=== PATIENT | female | born 1940 | race Caucasian/White ===

== ENCOUNTER 2016-03-20 17:13 | Observation (INO) | payer MEDICARE, OTHER ==
[~2016-03-20] VITALS: Ht 154.9 cm; Wt 57.3 kg
[~2016-03-20 17:13] MED LIST: ALBUCI INH; ALEN70TA39 PO; ALPR.5; CALC250 PO; CARV3.125 PO; ENAL5 PO; LEVA500T PO; LOVA10TA PO; PRED50 PO; SYMB80AE INH; WALKER STANDARD; Z.0.OXYGENDME NC
[2016-03-20 17:24] VITALS: BP 120/66; PULSE 94; RESP 20; TEMP 97.7; O2SAT 93
--- NOTE | 2016-03-20 19:50 | PD ---
HPI Chief Complaint: Fall Time Seen by Provider: 19:38 Travel History International Travel<30 days: No Contact w/Intl Traveler<30days: No Traveled to known affect area: No History of Present Illness HPI The patient is a 75-year-old female that tripped and fell on a concrete parking lot today at about noon. She cannot walk, she has tremendous pain even with a walker to ambulate. She has a history of right intertrochanteric fracture that has been operated on. She remembers the whole episode and did not lose consciousness or faint. She complains of pain only in the left hip. PFSH Past Medical History Arthritis: Yes Asthma: No Blood Disorders: No Cancer: Yes (CERVICAL, COLON) Cardiovascular Problems: No Chemotherapy: Yes (with colon cancer in 1995) Congestive Heart Failure: Yes COPD: Yes Diabetes: No Diminished Hearing: No Endocrine: No Gastrointestinal Disorders: Yes (hx of COLON CANCER ) GERD: Yes Genitourinary: No Hepatitis: No Hiatal Hernia: No Immune Disorder: No Implanted Vascular Access Dvce: Yes Musculoskeletal: Yes Neurologic: No Psychiatric: No Respiratory: Yes (COPD) Radiation Therapy: Yes (with colon 1995) Sleep Apnea: No Thyroid Disease: No Ulcer: No ?: Not Menopausal: Yes Past Surgical History Abdominal Surgery: Yes (States had abd sx for a partial obstruction r/t colon cancer) AICD: No Appendectomy: No Arteriovenous Shunt: No Cardiac Surgery: No Cholecystectomy: No Ear Surgery: No Endocrine Surgery: No Eye Surgery: Yes (REGLA. CATARACT EXTRACT.) Genitourinary Surgery: No Gynecologic Surgery: Yes (COLON/CERVICAL CANCER WITH HYSTERECTOMY ) Hysterectomy: Yes Insulin Pump: No Joint Replacement: No Neurologic Surgery: No Oral Surgery: No Pacemaker: No Thoracic Surgery: Yes (LUMBAR LAMINECTOMY ) Other Surgery: Yes Social History Alcohol Use: No Tobacco Use: No (quit 2 years ago smoked cigs in early s) Substance Use: No Allergies-Medications (Allergen,Severity, Reaction): Coded Allergies: Keflex (Verified Allergy, Severe, Itching, 03/20/16) Vancomycin (Verified Allergy, Severe, 03/20/16) REACTION NOT GIVEN Cephalosporins (Verified Allergy, Intermediate, 03/20/16) Itching Vicodin (Verified Allergy, Unknown, 03/20/16) Reported Meds & Prescriptions Reported Meds & Active Scripts Active Reported Lovastatin 10 Mg Tab 10 Mg PO DAILY Alendronate (Alendronate Sodium) 70 Mg Tab 70 Mg PO Q7D Enalapril (Enalapril Maleate) 2.5 Mg Tab 2.5 Mg PO DAILY Carvedilol 3.125 Mg Tab 3.125 Mg PO BID Symbicort Inh (Budesonide/Formoterol Fumarate) 80-4.5 Mcg/Act Aero 1 Puff INH Q12HR Review of Systems Except as stated in HPI: all other systems reviewed are Neg Physical Exam Narrative GENERAL: Well-nourished, well-developed patient. SKIN: Warm and dry. HEAD: Normocephalic. EYES: No scleral icterus. No injection or drainage. NECK: Supple, trachea midline. No JVD or lymphadenopathy. CARDIOVASCULAR: Regular rate and rhythm without murmurs, gallops, or rubs. RESPIRATORY: Breath sounds equal bilaterally. No accessory muscle use. GASTROINTESTINAL: Abdomen soft, non-tender, nondistended. MUSCULOSKELETAL: No cyanosis, or edema. There is tenderness but no deformity over the left hip. Any flexion of the left hip causes pain. There is no foreshortening of the left leg. Good cap refill and pinprick is present distally of the left foot. BACK: Nontender without obvious deformity. No CVA tenderness. Data Data Last Documented VS Vital Signs Date Time Temp Pulse Resp B/P Pulse Ox O2 Delivery O2 Flow Rate FiO2 03/20/16 21:42 84 18 96/70 94 03/20/16 19:57 Nasal Cannula 2 03/20/16 17:24 97.7 Orders Hip, Uni(Ap&Lat) W Ap Pelvis (03/20/16 19:01) Ct Hip W/O Contrast (03/20/16 ) MDM Medical Decision Making Medical Screen Exam Complete: Yes Emergency Medical Condition: Yes Medical Record Reviewed: Yes Interpretation(s) X-rays of the CT of the hip and plain films of the hip show a mildly displaced fracture of the left pubic bone extending into the left inferior and superior pubic rami. Differential Diagnosis Fractured hip, contusion hip, fractured pelvis Narrative Course The patient has a fractured pelvis. She cannot walk and will be admitted to [facility]. Dr. Bertrand asked that the patient be transferred to [facility] so that he could get an orthopedic consult. Procedures EKG Prior to Arrival: No Diagnosis Primary Impression: Fracture, pelvis closed Admitting Information Admitting Physician Requests: Admit Disposition: 01 DISCHARGE HOME Condition: Stable Sergio Álvarez MD Mar 20, 2016 19:50
[2016-03-20] MEDS ORDERED: ALEN1TAB48 PO (19:56)
[2016-03-20] MEDS ORDERED: CARV3.12 PO (19:56)
[2016-03-20] MEDS ORDERED: ENAL2.5T PO (19:56)
[2016-03-20] MEDS ORDERED: SYMB80AE INH (19:56)
[2016-03-20] MEDS ORDERED: LOVA10TA PO (19:56)
[2016-03-20 19:57] VITALS: BP 107/64; PULSE 77; RESP 18; O2SAT 95
--- NOTE | 2016-03-20 20:56 | RADHPO ---
EXAM DATE/TIME: 03/20/2016 20:06 [facility] COMPARISON: No previous studies available for comparison. INDICATIONS : Mechanical fall. Left posterior hip trauma. RADIATION DOSE: 14.96 CTDIvol (mGy) MEDICAL HISTORY : Carcinoma, colon. SURGICAL HISTORY : Hysterectomy. Right hip replacement. ENCOUNTER: Initial ACUITY: 1 day PAIN SCALE: 8/10 LOCATION: Left hip. TECHNIQUE: Volumetric scanning of the hip was performed. Using automated exposure control and adjustment of the mA and/or kV according to patient size, radiation dose was kept as low as reasonably achievable to o btain optimal diagnostic quality images. FINDINGS: Mildly displaced fracture of the left pubic bone extending into the left superior and inferior pubic rami. Left proximal femur are intact. Previous fixation right hip. CONCLUSION: 1. Mildly displaced fracture left pubic bone and extending into proximal superior inferior rami. Left proximal femur intact. Questionable small corner fracture through the anterior aspect of the left sacral ala. Nate Sparrow MD on March 20, 2016 at 20:50 Board Certified Radiologist. This report was verified electronically.
--- NOTE | 2016-03-20 21:16 | RADHPO ---
EXAM DATE/TIME: 03/20/2016 19:06 [facility] COMPARISON: No previous studies available for comparison. INDICATIONS : Left hip pain post fall. MEDICAL HISTORY : None. SURGICAL HISTORY : Right hip surgery ENCOUNTER: Initial ACUITY: 1 day PAIN SCORE: 10/10 LOCATION: Left pelvis FINDINGS: There is a mildly displaced fracture of the left pubic bone extending into the left inferior and supe rior pubic rami. Left proximal femur appears intact. No other fractures are seen radiographically. Pr evious right hip screw fixation. CONCLUSION: 1. Mildly displaced fracture left pubic bone extending into the superior and inferior pubic rami. Nate Sparrow MD on March 20, 2016 at 21:13 Board Certified Radiologist. This report was verified electronically.
[2016-03-20 21:42] VITALS: BP 96/70; PULSE 84; RESP 18; O2SAT 94
[2016-03-20] MEDS ORDERED: NALOXONE HCL 0.4 MG/ML AMP IV PRN (22:00)
[2016-03-20] MEDS ORDERED: ONDANSETRON HCL 4 MG/2 ML VIAL IVP PRN (22:00)
[2016-03-20] MEDS ORDERED: SODIUM CHLORIDE 0.9% FLUSH 5 ML FLUSH FLUSH PRN (22:00)
[2016-03-20 22:34] LABS: BLOOD, URINE NEG (NEG); GLUCOSE,URINE NEG (NEG); KETONE, URINE NEG (NEG); NITRITE,URINE NEG (NEG)
[2016-03-20 22:40] LABS: AUTOMATED NEUTROPHIL # 8.6 TH/MM3 (1.8-7.7); BASOPHIL # 0.1 TH/MM3 (0-0.2); BASOPHIL % 0.5 % (0.0-2.0); EOSINOPHIL % 0.1 % (0.0-4.0); HEMATOCRIT 43.9 % (35.0-46.0); HEMO FLAGS DIFF FINAL; LYMPH % 10.3 % (9.0-44.0); LYMPHOCYTE # 1.1 TH/MM3 (1.0-4.8); MEAN CELL VOLUME 91.1 FL (80.0-100.0); MEAN CORPUSCULAR HGB CONC 32.9 % (32.0-36.0); MONO % 10.5 % (0.0-8.0); NEUT % 78.6 % (16.0-70.0); PLATELET COUNT 206 TH/MM3 (150-450); RED BLOOD COUNT 4.81 MIL/MM3 (4.00-5.30)
[2016-03-20 22:42] LABS: CHLORIDE 103 MEQ/L (98-107); POTASSIUM 4.2 MEQ/L (3.5-5.1); SODIUM (NA) 142 MEQ/L (136-145)
[2016-03-20 22:43] VITALS: BP 98/70; PULSE 94; RESP 18; O2SAT 94
[2016-03-20] MEDS ORDERED: HYDROmorphone HCL PF 1 MG/ML VIAL IV PRN (22:45)
[2016-03-20 22:47] LABS: ANION GAP 9 MEQ/L (5-15); BICARBONATE 30.4 MEQ/L (21.0-32.0); BLOOD UREA NITROGEN 11 MG/DL (7-18)
[2016-03-20] MEDS: SODIUM CHLOR 0.9% 1000 ML INJ 1,000 ML IV SCH (22:47)
[2016-03-20 22:50] LABS: ALT (GPT) 25 U/L (10-53); AST (GOT) 19 U/L (15-37)
[2016-03-20 22:51] LABS: GLOMERULAR FILTRATION RATE 99 ML/MIN (>89)
[2016-03-20 22:52] LABS: TOTAL BILIRUBIN ADULT 0.4 MG/DL (0.2-1.0)
[2016-03-20 22:52] LABS: METHOD OF COLLECTION VOIDED; URINE COLOR YELLOW (YELLW/STRAW)
[2016-03-20 22:53] LABS: ALKALINE PHOSPHATASE 77 U/L (45-117)
[2016-03-20 22:53] LABS: COMMENT (UR) CULT NOT INDICATED; CULTURE IF INDICATED CULT NOT INDICATED; SQUAMOUS EPITHELIAL CELL URINE 0-2 /hpf (0-5); TRANSITIONAL EPI CELLS, URINE 0-2 /hpf; WBC, URINE 0-2 /hpf (0-5)
[2016-03-21] VITALS (12 sets, daily range): BP systolic 88–116; BP diastolic 42–80; PULSE 71–98; RESP 16–22; TEMP 96.3–98.6; O2SAT 92–97
[2016-03-21] MEDS: RESP: ALBUTEROL 2.5 MG/IPRATROPIUM 0.5 MG NEB (PRN) NEB ×3 (06:29→21:26)
[2016-03-21] MEDS: SODIUM CHLOR 0.9% 1000 ML INJ 1,000 ML IV SCH (07:47)
[2016-03-21] MEDS: SODIUM CHLORIDE 0.9% FLUSH 5 ML FLUSH FLUSH SCH ×2 (08:20→21:04)
--- NOTE | 2016-03-21 08:23 | HHI.HP ---
HPI [facility] Primary Care Physician Russ Belle M.D. Admission Diagnosis fracture pelvisclosed Diagnoses: Chief Complaint: Fall and left hip pain (Sofia Lyons) Travel History International Travel<30 Days: No Contact w/Intl Traveler <30 Da: No Traveled to Known Affected Are: No (Sofia Lyons) History of Present Illness This is a pleasant 75-year-old white female with past medical history of COPD, previous fall with right intertrochanteric hip fracture, colon cancer, hypertension, hyperlipidemia. Patient presented to the emergency room after she had a fall. Patient indicates that she was monitoring her 's ambulation as he recently started using a cane when she tripped and fell on concrete landing on her left side. She complained of pain to the left hip. She did not hit her head, no loss of consciousness. No neck pain. No preceding symptoms such as dizziness, chest pain, shortness of breath, lightheadedness. In the emergency room, patient was evaluated, laboratory workup was unremarkable. Imaging studies were completed showing mild displacement fracture of left pubic bone extended into the left inferior and superior pubic rami. Patient has not ambulated this morning. At this time she' s sitting up in bed waiting for breakfast. Pain is well-controlled. No chest pain, no shortness of breath, no recent fevers, no chills. Indicates COPD is well-controlled, has oxygen tank at home but only uses as needed. Had been doing relatively well at home. Patient is admitted for further evaluation and treatment (Sofia Lyons) Review of Systems Constitutional: DENIES: Diaphoretic episodes, Fatigue, Fever, Weight gain, Weight loss, Chills, Dizziness, Change in appetite, Night Sweats Endocrine: DENIES: Abnorml menstrual pattern, Heat/cold intolerance, Polydipsia , Polyuria, Polyphagia Eyes: DENIES: Blurred vision, Diplopia, Eye inflammation, Eye pain, Vision loss , Photosensitivity, Double Vision Ears, nose, mouth, throat: DENIES: Tinnitus, Hearing loss, Vertigo, Nasal discharge, Oral lesions, Throat pain, Hoarseness, Ear Pain, Running Nose, Epistaxis, Sinus Pain, Toothache, Odynophagia Respiratory: COMPLAINS OF: Wheezing, Shortness of breath, DENIES: Apneas, Cough, Snoring, Hemoptysis, Sputum production Cardiovascular: DENIES: Chest pain, Palpitations, Syncope, Dyspnea on Exertion , PND, Lower Extremity Edema, Orthopnea, Claudication Gastrointestinal: DENIES: Abdominal pain, Black stools, Bloody stools, Constipation, Diarrhea, Nausea, Vomiting, Difficulty Swallowing, Anorexia Genitourinary: DENIES: Abnormal vaginal bleeding, Dysmenorrhea, Dyspareunia, Sexual dysfunction, Urinary frequency, Urinary incontinence, Urgency, Hematuria , Dysuria, Nocturia, Vaginal discharge Musculoskeletal: COMPLAINS OF: Joint pain Integumentary: DENIES: Abnormal pigmentation, Pruritus, Rash, Nail changes, Breast masses, Breast skin changes, Nipple discharge Hematologic/lymphatic: DENIES: Bruising, Lymphadenopathy Immunologic/allergic: DENIES: Eczema, Urticaria Neurologic: DENIES: Abnormal gait, Headache, Localized weakness, Paresthesias, Seizures, Speech Problems, Tremor, Poor Balance Psychiatric: DENIES: Anxiety, Confusion, Mood changes, Depression, Hallucinations, Agitation, Suicidal Ideation, Homicidal Ideation, Delusions ( Sofia Lyons) Past Family Social History Past Medical History Osteoporosis COPD on home oxygen as needed Colon cancer status post colostomy and reversal Hypertension Osteoarthritis Past Surgical History Bilateral knee arthroscopies Back laminectomy Cervical cancer Hysterectomy Intramedullary nail fixation right hip intertrochanteric fracture (May 13, 2015) Reported Medications Reported Meds & Active Scripts Active Reported Lovastatin 10 Mg Tab 10 Mg PO DAILY Alendronate (Alendronate Sodium) 70 Mg Tab 70 Mg PO Q7D Enalapril (Enalapril Maleate) 2.5 Mg Tab 2.5 Mg PO DAILY Carvedilol 3.125 Mg Tab 3.125 Mg PO BID Symbicort Inh (Budesonide/Formoterol Fumarate) 80-4.5 Mcg/Act Aero 1 Puff INH Q12HR (Sofia Lyons) Allergies: Coded Allergies: Keflex (Verified Allergy, Severe, Itching, 03/20/16) Vancomycin (Verified Allergy, Severe, 03/20/16) REACTION NOT GIVEN Cephalosporins (Verified Allergy, Intermediate, 03/20/16) Itching Vicodin (Verified Allergy, Unknown, 03/20/16) Active Ordered Medications Inpatient Medications Albuterol/ Ipratropium (Duoneb Neb) 1 ampule Q4HR NEB PRN NEB WHEEZING Last administered on 03/21/16 06:29; Start 03/20/16 at 22:15 Hydromorphone HCl (Dilaudid Pf Inj) 0.5 mg Q4H PRN IV PAIN SCALE 6 TO 10; Start 03/20/16 at 22:45 IV Flush (NS Flush) 2 ml BID FLUSH ; Start 03/21/16 at 09:00 Naloxone HCl (Narcan Inj) 0.4 mg UNSCH PRN IV SEE LABEL COMMENTS; Start at 22:00 Ondansetron HCl (Zofran Inj) 4 mg Q6H PRN IVP NAUSEA OR VOMITING; Start at 22:00 Sodium Chloride (NS 1000 ml Inj) 1,000 ml @ 100 mls/hr Q10H IV Last administered on 03/20/16 22:47; Start 03/20/16 at 21:47 Family History Positive for coronary artery disease and various cancers Social History Used to smoke heavily, may smoke 1 cigarette once in a while Alcohol abuse No illegal drug use Lives at home with , has 2 grandsons who live with her (Sofia Lyons) Physical Exam Vital Signs Vital Signs Date Time Temp Pulse Resp B/P Pulse Ox O2 Delivery O2 Flow Rate FiO2 03/21/16 08:00 96.9 71 19 96/80 95 03/21/16 04:00 96.3 92 18 108/55 96 03/21/16 01:13 98.5 89 22 113/69 93 03/21/16 00:56 93 Nasal Cannula 3.00 03/21/16 00:30 98 18 95 2 03/21/16 00:20 98 18 99/68 94 03/20/16 22:43 94 18 98/70 94 03/20/16 21:42 84 18 96/70 94 03/20/16 19:57 77 18 107/64 95 Nasal Cannula 2 03/20/16 19:57 77 18 95 Nasal Cannula 2 03/20/16 17:24 97.7 94 20 120/66 93 Physical Exam GENERAL: This is a well-nourished, well-developed patient, in no apparent distress. SKIN: No rashes, ecchymoses or lesions. Cool and dry. HEAD: Atraumatic. Normocephalic. No temporal or scalp tenderness. EYES: Pupils equal round and reactive. Extraocular motions intact. No scleral icterus. No injection or drainage. ENT: Nose without bleeding, purulent drainage or septal hematoma. Throat without erythema, tonsillar hypertrophy or exudate. Uvula midline. Airway patent. NECK: Trachea midline. No JVD or lymphadenopathy. Supple, nontender, no meningeal signs. CARDIOVASCULAR: Regular rate and rhythm without murmurs, gallops, or rubs. RESPIRATORY: Diminished, otherwise clear. GASTROINTESTINAL: Abdomen soft, non-tender, nondistended. No hepato-splenomegaly , or palpable masses. No guarding. MUSCULOSKELETAL: Sitting up, minimal tenderness over left hip. No other joint abnormalities. Bilateral lower extremities without any clubbing, no cyanosis, no edema. Pedal pulses 2+ by NEUROLOGICAL: Awake and alert. Cranial nerves II through XII intact. Motor and sensory grossly within normal limits. Five out of 5 muscle strength in all muscle groups. Normal speech. Laboratory Laboratory Tests Test 03/20/16 03/20/16 22:10 22:25 Urine Collection Type VOIDED Urine Color YELLOW Urine Turbidity CLEAR Urine pH 6.0 Urine Specific Pyatt 1.012 Urine Protein NEG Urine Glucose (UA) NEG Urine Ketones NEG Urine Occult Blood NEG Urine Nitrite NEG Urine Bilirubin NEG Urine Leukocyte Esterase NEG Urine WBC 0-2 Urine Squamous Epithelial 0-2 Cells Urine Transitional Epithelial 0-2 Cells Microscopic Urinalysis Comment CULT NOT INDICATED White Blood Count 11.0 Red Blood Count 4.81 Hemoglobin 14.4 Hematocrit 43.9 Mean Corpuscular Volume 91.1 Mean Corpuscular Hemoglobin 30.0 Mean Corpuscular Hemoglobin 32.9 Concent Red Cell Distribution Width 14.0 Platelet Count 206 Mean Platelet Volume 8.3 Neutrophils (%) (Auto) 78.6 Lymphocytes (%) (Auto) 10.3 Monocytes (%) (Auto) 10.5 Eosinophils (%) (Auto) 0.1 Basophils (%) (Auto) 0.5 Neutrophils # (Auto) 8.6 Lymphocytes # (Auto) 1.1 Monocytes # (Auto) 1.2 Eosinophils # (Auto) 0.0 Basophils # (Auto) 0.1 CBC Comment DIFF FINAL Differential Comment Sodium Level 142 Potassium Level 4.2 Chloride Level 103 Carbon Dioxide Level 30.4 Anion Gap 9 Blood Urea Nitrogen 11 Creatinine 0.59 Estimat Glomerular Filtration 99 Rate Random Glucose 112 Calcium Level 9.0 Total Bilirubin 0.4 Aspartate Amino Transf 19 (AST/SGOT) Alanine Aminotransferase 25 (ALT/SGPT) Alkaline Phosphatase 77 Total Protein 6.8 Albumin 3.6 (Sofia Lyons) Result Diagram: 03/20/16222403/20/162224 Imaging Last Impressions Hip and Pelvis X-Ray 03/20/16 1901 Signed Impressions: Service Date/Time: Sunday, March 20, 2016 19:06 - CONCLUSION: 1. Mildly displaced fracture left pubic bone extending into the superior and inferior pubic rami. Nate Sparrow MD Lower Extremity CT 03/20/16 0000 Signed Impressions: Service Date/Time: Sunday, March 20, 2016 20:06 - CONCLUSION: 1. Mildly displaced fracture left pubic bone and extending into proximal superior inferior rami. Left proximal femur intact. Questionable small corner fracture through the anterior aspect of the left sacral ala. Nate Sparrow MD (Sofia Lyons) Assessment and Plan Problem List: (1) Fracture, pelvis closed (2) COPD (chronic obstructive pulmonary disease) (3) Fall Assessment and Plan Admit to Dr. Aguiar 75-year-old female presented to the emergency room after she tripped and fell on concrete parking lot, imaging studies completed showed mildly displaced fracture of the left pubic bone extending into the left inferior and superior pubic rami -Ortho consultation -PT for evaluation and treatment, OOB today -Pain management -Antiemetics PRN -Case management for discharge planning, pt. prefers to go home with C and PT. Has adult grandsons who will be assisting COPD, stable -DuoNeb's when necessary -Oxygen at 2 L as needed Home medications reviewed, initiated as indicated Heparin for DVT prophylaxis Plan of care has been discussed with the patient, attending and registered nurse. Further management of the patient will be dependent on the hospital course This patient was seen by myself and Dr. Aguiar, this H&P is written on his behalf (Sofia Lyons) Assessment and Plan pt seen and examined as above face to face time spent with pt chart reviewed labs reviewed meds reviewed plan of care dw research dietitian dw pt (Trini Aguiar MD) Problem Qualifiers (1) Fracture, pelvis closed: Qualified Code: S32.512A - Closed fracture of superior ramus of left pubis, initial encounter (2) COPD (chronic obstructive pulmonary disease): Qualified Code: J44.9 - Chronic obstructive pulmonary disease, unspecified COPD type (3) Fall: Qualified Code: W19.XXXA - Fall, initial encounter Sofia Lyons Mar 21, 2016 08:23 Trini Aguiar MD Mar 21, 2016 17:37
[2016-03-21] MEDS: CARVEDILOL 3.125 MG TAB PO SCH ×2 (09:00→21:00)
[2016-03-21] MEDS: ENALAPRIL MALEATE 2.5 MG TAB PO SCH (09:00)
[2016-03-21] MEDS: PRAVASTATIN SOD 10 MG TAB PO SCH (09:36)
[2016-03-21] MEDS: BUDESONIDE-FORMOTEROL 80/4.5 MCG INHALER INH SCH ×2 (11:08→21:05)
[2016-03-21] MEDS: HEPARIN SODIUM - SQ 10,000 UNITS/ML VIAL SQ SCH ×2 (11:08→21:05)
--- NOTE | 2016-03-21 13:06 | EKG ---
Date Performed: 03/20/2016 Time Performed: 22:15:50 PTAGE: 75 years EKG: Sinus rhythm with PAC(s) Indeterminate axis Possible septal infarct - age undetermined Inferior/lateral ST-T shin ges are nonspecific Abnormal ECG PREVIOUS TRACING : 06/08/2015 17.19 Compared to previous tracing, nonspecific ST changes are ne w, consider ischemia. DOCTOR: Al Head Interpretating Date/Time 03/21/2016 13:03:38
[2016-03-21 13:26] LABS: AUTOMATED NEUTROPHIL # 5.7 TH/MM3 (1.8-7.7); BASOPHIL % 0.5 % (0.0-2.0); EOSINOPHIL # 0.1 TH/MM3 (0-0.4); EOSINOPHIL % 1.4 % (0.0-4.0); HEMATOCRIT 39.9 % (35.0-46.0); HEMO FLAGS DIFF FINAL; LYMPH % 12.5 % (9.0-44.0); MEAN CELL VOLUME 93.1 FL (80.0-100.0); MEAN CORPUSCULAR HEMOGLOBIN 30.4 PG (27.0-34.0); MEAN CORPUSCULAR HGB CONC 32.6 % (32.0-36.0); MONO % 14.6 % (0.0-8.0); PLATELET COUNT 187 TH/MM3 (150-450); RED BLOOD COUNT 4.28 MIL/MM3 (4.00-5.30); RED CELL DISTRIBUTION WIDTH 15.3 % (11.6-17.2)
--- NOTE | 2016-03-21 13:29 | PD.CONS ---
cc: Morris Carter MD [facility] Service Orthopedic Surgeons Consult Requested By Dr. Aguiar Reason for Consult pelvic fracture Primary Care Physician Russ Belle M.D. Admission Diagnosis fracture pelvisclosed Diagnoses: (1) COPD (chronic obstructive pulmonary disease) (2) CHF (congestive heart failure) (3) Pubic ramus fracture Chief Complaint: Left hip pain status post fall History of Present Illness History of Present Illness This is a pleasant 75-year-old white female with past medical history of COPD, previous fall with right intertrochanteric hip fracture, colon cancer, hypertension, hyperlipidemia. Patient presented to the emergency room after she had a fall. Patient indicates that she was monitoring her 's ambulation as he recently started using a cane when she tripped and fell on concrete landing on her left side. She complained of pain to the left hip. She did not hit her head, no loss of consciousness. No neck pain. No preceding symptoms such as dizziness, chest pain, shortness of breath, lightheadedness. In the emergency room, patient was evaluated, laboratory workup was unremarkable. Imaging studies were completed showing mild displacement fracture of left pubic bone extended into the left inferior and superior pubic rami. Patient has not ambulated this morning. At this time she' s sitting up in bed waiting for breakfast. Pain is well-controlled. No chest pain, no shortness of breath, no recent fevers, no chills. Indicates COPD is well-controlled, has oxygen tank at home but only uses as needed. Had been doing relatively well at home. Patient is admitted for further evaluation and treatment. She has had a previous intertrochanteric fracture of the right hip treated surgically. She has mild left shoulder pain also related to the recent fall. Review of Systems Reviewed and well outlined in the medical record Past Family Social History Past Medical History Past Family Social History Past Medical History Osteoporosis COPD on home oxygen as needed Colon cancer status post colostomy and reversal Hypertension Osteoarthritis Past Surgical History Bilateral knee arthroscopies Back laminectomy Cervical cancer Hysterectomy Intramedullary nail fixation right hip intertrochanteric fracture (May 13, 2015) Reported Medications Reported Meds & Active Scripts Active Reported Lovastatin 10 Mg Tab 10 Mg PO DAILY Alendronate (Alendronate Sodium) 70 Mg Tab 70 Mg PO Q7D Enalapril (Enalapril Maleate) 2.5 Mg Tab 2.5 Mg PO DAILY Carvedilol 3.125 Mg Tab 3.125 Mg PO BID Symbicort Inh (Budesonide/Formoterol Fumarate) 80-4.5 Mcg/Act Aero 1 Puff INH Q12HR Allergies: Coded Allergies: Keflex (Verified Allergy, Severe, Itching, 03/20/16) Vancomycin (Verified Allergy, Severe, 03/20/16) REACTION NOT GIVEN Cephalosporins (Verified Allergy, Intermediate, 03/20/16) Itching Vicodin (Verified Allergy, Unknown, 03/20/16) Active Ordered Medications Inpatient Medications Albuterol/ Ipratropium (Duoneb Neb) 1 ampule Q4HR NEB PRN NEB WHEEZING Last administered on 03/21/16t 06:29; Start 03/20/16 at 22:15 Hydromorphone HCl (Dilaudid Pf Inj) 0.5 mg Q4H PRN IV PAIN SCALE 6 TO 10; Start 03/20/16 at 22:45 IV Flush (NS Flush) 2 ml BID FLUSH ; Start 03/21/16 at 09:00 Naloxone HCl (Narcan Inj) 0.4 mg UNSCH PRN IV SEE LABEL COMMENTS; Start at 22:00 Ondansetron HCl (Zofran Inj) 4 mg Q6H PRN IVP NAUSEA Allergies: Coded Allergies: Keflex (Verified Allergy, Severe, Itching, 03/20/16) Vancomycin (Verified Allergy, Severe, 03/20/16) REACTION NOT GIVEN Cephalosporins (Verified Allergy, Intermediate, 03/20/16) Itching Vicodin (Verified Allergy, Unknown, 03/20/16) Active Ordered Medications Current Medications Medications (Trade) Dose Ordered Sig/Mary Route Start Time Stop Time Status Last Admin (NS Flush) 2 ml UNSCH PRN FLUSH 03/20/16 22:00 (NS Flush) 2 ml BID FLUSH 03/21/16 09:00 (Zofran Inj) 4 mg Q6H PRN IVP 03/20/16 22:00 (Narcan Inj) 0.4 mg UNSCH PRN IV 03/20/16 22:00 (Dilaudid Pf Inj) 0.5 mg Q4H PRN IV 03/20/16 22:45 (Symbicort 80-4.5 Mcg Inh) 1 puff Q12HR INH 03/21/16 09:00 03/21/16 11:08 (Coreg) 3.125 mg BID PO 03/21/16 09:00 (Vasotec) 2.5 mg DAILY PO 03/21/16 09:00 (Pravachol) 10 mg DAILY PO 03/21/16 09:00 03/21/16 09:36 (Heparin Inj) 5,000 units Q12HR SQ 03/21/16 10:00 03/21/16 11:08 Reported Meds & Active Scripts Active Reported Lovastatin 10 Mg Tab 10 Mg PO DAILY Alendronate (Alendronate Sodium) 70 Mg Tab 70 Mg PO Q7D Enalapril (Enalapril Maleate) 2.5 Mg Tab 2.5 Mg PO DAILY Carvedilol 3.125 Mg Tab 3.125 Mg PO BID Symbicort Inh (Budesonide/Formoterol Fumarate) 80-4.5 Mcg/Act Aero 1 Puff INH Q12HR Family History Positive for coronary artery disease and various cancers Social History Used to smoke heavily, may smoke 1 cigarette once in a while Alcohol abuse No illegal drug use Lives at home with , has 2 grandsons who live with her Physical Exam Vital Signs Vital Signs Date Time Temp Pulse Resp B/P Pulse Ox O2 Delivery O2 Flow Rate FiO2 03/21/16 12:57 116/58 03/21/16 11:59 97.2 85 18 88/42 97 03/21/16 10:02 95 Nasal Cannula 2.50 03/21/16 08:00 96.9 71 19 96/80 95 03/21/16 04:00 96.3 92 18 108/55 96 03/21/16 01:13 98.5 89 22 113/69 93 03/21/16 00:56 93 Nasal Cannula 3.00 03/21/16 00:30 98 18 95 2 03/21/16 00:20 98 18 99/68 94 03/20/16 22:43 94 18 98/70 94 03/20/16 21:42 84 18 96/70 94 03/20/16 19:57 77 18 107/64 95 Nasal Cannula 2 03/20/16 19:57 77 18 95 Nasal Cannula 2 03/20/16 17:24 97.7 94 20 120/66 93 Physical Exam The patient is sitting at the bedside eating lunch. She denies pain when sitting. She was able to stand. With bearing weight she did have some discomfort in the left groin region. She has minimal discomfort with active and passive range of motion of the left hip. She has mild restriction of left shoulder motion at extremes. She has full mobility of the rest of the left upper extremity as well as the right upper extremity and right lower extremity. Neurologically no focal deficit. Laboratory Laboratory Tests Test 03/20/16 03/20/16 22:10 22:25 Urine Collection Type VOIDED Urine Color YELLOW Urine Turbidity CLEAR Urine pH 6.0 Urine Specific [place] 1.012 Urine Protein NEG Urine Glucose (UA) NEG Urine Ketones NEG Urine Occult Blood NEG Urine Nitrite NEG Urine Bilirubin NEG Urine Leukocyte Esterase NEG Urine WBC 0-2 Urine Squamous Epithelial 0-2 Cells Urine Transitional Epithelial 0-2 Cells Microscopic Urinalysis Comment CULT NOT INDICATED White Blood Count 11.0 Red Blood Count 4.81 Hemoglobin 14.4 Hematocrit 43.9 Mean Corpuscular Volume 91.1 Mean Corpuscular Hemoglobin 30.0 Mean Corpuscular Hemoglobin 32.9 Concent Red Cell Distribution Width 14.0 Platelet Count 206 Mean Platelet Volume 8.3 Neutrophils (%) (Auto) 78.6 Lymphocytes (%) (Auto) 10.3 Monocytes (%) (Auto) 10.5 Eosinophils (%) (Auto) 0.1 Basophils (%) (Auto) 0.5 Neutrophils # (Auto) 8.6 Lymphocytes # (Auto) 1.1 Monocytes # (Auto) 1.2 Eosinophils # (Auto) 0.0 Basophils # (Auto) 0.1 CBC Comment DIFF FINAL Differential Comment Sodium Level 142 Potassium Level 4.2 Chloride Level 103 Carbon Dioxide Level 30.4 Anion Gap 9 Blood Urea Nitrogen 11 Creatinine 0.59 Estimat Glomerular Filtration 99 Rate Random Glucose 112 Calcium Level 9.0 Total Bilirubin 0.4 Aspartate Amino Transf 19 (AST/SGOT) Alanine Aminotransferase 25 (ALT/SGPT) Alkaline Phosphatase 77 Total Protein 6.8 Albumin 3.6 Result Diagram: 03/20/16222403/20/162224 Imaging Last 48 hours Impressions Hip and Pelvis X-Ray 03/20/16 190 Signed Impressions: Service Date/Time: Sunday, March 20, 2016 19:06 - CONCLUSION: 1. Mildly displaced fracture left pubic bone extending into the superior and inferior pubic rami. Nate Sparrow MD Lower Extremity CT 03/20/16 0000 Signed Impressions: Service Date/Time: Sunday, March 20, 2016 20:06 - CONCLUSION: 1. Mildly displaced fracture left pubic bone and extending into proximal superior inferior rami. Left proximal femur intact. Questionable small corner fracture through the anterior aspect of the left sacral ala. Nate Sparrow MD Assessment & Plan Problem List: (1) Pubic ramus fracture (2) CHF (congestive heart failure) (3) COPD (chronic obstructive pulmonary disease) Assessment and Plan The findings were discussed. Recommendations are given for progressive mobilization to tolerance. This would include physical therapy to assist. The possibility of a soft tissue injury to the shoulder requiring further management if her symptoms persist was discussed. The patient can be discharged from an orthopedic standpoint with follow-up evaluation in approximately 3 weeks. The patient acknowledges full understanding of the nature of the problem and the plan of treatment and agrees to it. Morris Carter MD Mar 21, 2016 13:29
[2016-03-21 13:49] LABS: BICARBONATE 29.9 MEQ/L (21.0-32.0); POTASSIUM 4.1 MEQ/L (3.5-5.1)
[2016-03-21] MEDS ORDERED: ALPRAZolam 0.5 MG TAB PO PRN (20:15)
[2016-03-22] VITALS: BP 101/46; PULSE 87; RESP 15; TEMP 98; O2SAT 92
[2016-03-22 04:00] VITALS: BP 93/42; PULSE 76; RESP 16; TEMP 98.1; O2SAT 94
[2016-03-22] MEDS: RESP: ALBUTEROL 2.5 MG/IPRATROPIUM 0.5 MG NEB (PRN) NEB ×2 (04:23→09:53)
[2016-03-22 07:25] VITALS: BP 101/49; PULSE 86; RESP 17; TEMP 97; O2SAT 93
--- NOTE | 2016-03-22 07:48 | HHI.DCPOC ---
Discharge Care Plan Diagnosis: (1) Pubic ramus fracture (2) Fall Your Health Problems Are: Difficulty with ADL Goals to Promote Your Health * To prevent worsening of your condition and complications * To maintain your health at the optimal level Directions to Meet Your Goals Take your medications as prescribed Follow your dietary instruction Follow activity as directed Keep your appointments as scheduled Take your immunizations and boosters as scheduled If your symptoms worsen call your PCP, if no PCP go to Urgent Care Center or Emergency Room Smoking is Dangerous to Your Health. Avoid second hand smoke Call the 24-hour hour crisis hotline for domestic abuse at Sofia Lyons Mar 22, 2016 07:47
[2016-03-22] MEDS: ENALAPRIL MALEATE 2.5 MG TAB PO SCH (08:30)
[2016-03-22] MEDS: CARVEDILOL 3.125 MG TAB PO SCH (08:30)
[2016-03-22] MEDS: BUDESONIDE-FORMOTEROL 80/4.5 MCG INHALER INH SCH (08:34)
[2016-03-22] MEDS: SODIUM CHLORIDE 0.9% FLUSH 5 ML FLUSH FLUSH SCH (08:34)
[2016-03-22] MEDS: HEPARIN SODIUM - SQ 10,000 UNITS/ML VIAL SQ SCH (08:34)
[2016-03-22] MEDS: PRAVASTATIN SOD 10 MG TAB PO SCH (08:34)
[2016-03-22] MEDS ORDERED: HYDR-3288 PO (08:34)
[2016-03-22 09:53] VITALS: O2SAT 97
[2016-03-22 11:35] VITALS: BP 108/53; PULSE 96; RESP 17; TEMP 96.8; O2SAT 93
--- NOTE | 2016-03-22 11:49 | HHI.PR ---
Subjective Remarks BP 90s yesterday, given bolus remains low 100s asymptomatic no cp no sob BP meds held states BP usually runs low at home pain very minimal ambulated with PT anxious to go home Objective Objective Results - Vital Signs Date Time Temp Pulse Resp B/P Pulse Ox O2 Delivery O2 Flow Rate FiO2 03/22/16 09:53 97 Nasal Cannula 2.00 03/22/16 07:25 97.0 86 17 101/49 93 03/22/16 04:00 98.1 76 16 93/42 94 03/22/16 00:00 98.0 87 15 101/46 92 03/21/16 21:27 95 Nasal Cannula 2.00 03/21/16 21:00 84 03/21/16 20:00 98.6 94 16 91/53 92 03/21/16 16:00 97.4 86 18 103/50 94 03/21/16 12:57 116/58 03/21/16 11:59 97.2 85 18 88/42 97 I/O 03/21/16 03/21/16 03/21/16 03/22/16 03/22/16 03/22/16 07:00 15:00 23:00 07:00 15:00 23:00 Intake Total 240 ml 1220 ml 480 ml 360 ml Output Total 2 ml Balance 238 ml 1220 ml 480 ml 360 ml Intake Oral 240 ml 1220 ml 480 ml 360 ml Output Urine Total 2 ml # Voids 3 4 1 # Bowel Movements 0 2 1 Result Diagram: 03/21/16 1311 03/21/16 1311 Imaging Last Impressions Hip and Pelvis X-Ray 03/20/16 1901 Signed Impressions: Service Date/Time: Sunday, March 20, 2016 19:06 - CONCLUSION: 1. Mildly displaced fracture left pubic bone extending into the superior and inferior pubic rami. Nate Sparrow MD Lower Extremity CT 03/20/16 0000 Signed Impressions: Service Date/Time: Sunday, March 20, 2016 20:06 - CONCLUSION: 1. Mildly displaced fracture left pubic bone and extending into proximal superior inferior rami. Left proximal femur intact. Questionable small corner fracture through the anterior aspect of the left sacral ala. Nate Sparrow MD Other Results Laboratory Tests Test 03/21/16 13:11 White Blood Count 8.0 Red Blood Count 4.28 Hemoglobin 13.0 Hematocrit 39.9 Mean Corpuscular Volume 93.1 Mean Corpuscular Hemoglobin 30.4 Mean Corpuscular Hemoglobin 32.6 Concent Red Cell Distribution Width 15.3 Platelet Count 187 Mean Platelet Volume 8.8 Neutrophils (%) (Auto) 71.0 Lymphocytes (%) (Auto) 12.5 Monocytes (%) (Auto) 14.6 Eosinophils (%) (Auto) 1.4 Basophils (%) (Auto) 0.5 Neutrophils # (Auto) 5.7 Lymphocytes # (Auto) 1.0 Monocytes # (Auto) 1.2 Eosinophils # (Auto) 0.1 Basophils # (Auto) 0.0 CBC Comment DIFF FINAL Differential Comment Sodium Level 142 Potassium Level 4.1 Chloride Level 105 Carbon Dioxide Level 29.9 Anion Gap 7 Blood Urea Nitrogen 13 Creatinine 0.60 Estimat Glomerular Filtration 97 Rate Random Glucose 104 Calcium Level 8.1 ROS General: No: Fatigue, Weakness HEENT: No: Sore Throat, Dysphagia Cardiac: No: Chest Pain, Edema, Palpitations Pulmonary: No: Cough, SOB, Wheezing GI: No: Abdominal Pain, BM, Diarrhea, 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 SKIN: No rashes, ecchymoses or lesions. Cool and dry. HEAD: Atraumatic. Normocephalic. No temporal or scalp tenderness. EYES: Pupils equal round and reactive. Extraocular motions intact. No scleral icterus. No injection or drainage. ENT: Nose without bleeding, purulent drainage or septal hematoma. Throat without erythema, tonsillar hypertrophy or exudate. Uvula midline. Airway patent. NECK: Trachea midline. No JVD or lymphadenopathy. Supple, nontender, no meningeal signs. CARDIOVASCULAR: Regular rate and rhythm without murmurs, gallops, or rubs. RESPIRATORY: Diminished, otherwise clear. GASTROINTESTINAL: Abdomen soft, non-tender, nondistended. No hepato-splenomegaly , or palpable masses. No guarding. MUSCULOSKELETAL: Sitting up, minimal tenderness over left hip. No other joint abnormalities. Bilateral lower extremities without any clubbing, no cyanosis, no edema. Pedal pulses 2+ by NEUROLOGICAL: Awake and alert. Cranial nerves II through XII intact. Motor and sensory grossly within normal limits. Five out of 5 muscle strength in all muscle groups. Normal speech. Urinary Catheter: No Vascular Central Line Catheter: No A/P Diagnosis: (1) Fracture, pelvis closed (2) COPD (chronic obstructive pulmonary disease) (3) Fall (4) Hypotension Assessment and Plan 75-year-old female presented to the emergency room after she tripped and fell on concrete parking lot, imaging studies completed showed mildly displaced fracture of the left pubic bone extending into the left inferior and superior pubic rami -Ortho consultation-input appreciated, non surgical tx to consist of PT and pain management -PT for evaluation and treatment,did ok with ambulation, using walker -Pain management -Antiemetics PRN -CM arranged HHC COPD, stable -DuoNeb's when necessary -Oxygen at 2 L as needed Hypotension, hx HTN on meds, asymptomatic -BP meds held -IV bolus given -BP better 100s, states at home it tends to run in this range. -Instructed to stop taking Lisinopril and Coreg and f/u PCP one week CM to arrange HHC, PT Heparin for DVT prophylaxis Discharge home with HHC today F/U PCP 1 week Diet-heart healthy Activity-as tolerated, no driving D/W RN D/W Dr. Aguiar D/W pt This patient was seen by myself and Dr. Aguiar, this note is written on his behalf Problem Qualifiers (1) Fracture, pelvis closed: Qualified Code: S32.512A - Closed fracture of superior ramus of left pubis, initial encounter (2) COPD (chronic obstructive pulmonary disease): Qualified Code: J44.9 - Chronic obstructive pulmonary disease, unspecified COPD type (3) Fall: Qualified Code: W19.XXXA - Fall, initial encounter (4) Hypotension: Qualified Code: I95.9 - Hypotension, unspecified hypotension type Sofia Lyons Mar 22, 2016 11:49
--- NOTE | 2016-03-22 11:57 | HHI.DS ---
Discharge Summary Admission Date Mar 20, 2016 at 21:57 Discharge Date: Mar 22, 2016 Admitting Diagnosis fracture pelvisclosed (1) Fracture, pelvis closed (2) COPD (chronic obstructive pulmonary disease) (3) Fall (4) Hypotension CBC/BMP: 03/21/16 1311 03/21/16 1311 Significant Findings Laboratory Tests Test 03/20/16 03/21/16 22:25 13:11 Neutrophils (%) (Auto) 78.6 % 71.0 % (16.0-70.0) (16.0-70.0) Monocytes (%) (Auto) 10.5 % 14.6 % (0.0-8.0) (0.0-8.0) Neutrophils # (Auto) 8.6 TH/MM3 (1.8-7.7) Monocytes # (Auto) 1.2 TH/MM3 1.2 TH/MM3 (0-0.9) (0-0.9) Random Glucose 112 MG/DL (74-106) Calcium Level 8.1 MG/DL (8.5-10.1) Imaging Last Impressions Hip and Pelvis X-Ray 03/20/16 1901 Signed Impressions: Service Date/Time: Sunday, March 20, 2016 19:06 - CONCLUSION: 1. Mildly displaced fracture left pubic bone extending into the superior and inferior pubic rami. Nate Sparrow MD Lower Extremity CT 03/20/16 0000 Signed Impressions: Service Date/Time: Sunday, March 20, 2016 20:06 - CONCLUSION: 1. Mildly displaced fracture left pubic bone and extending into proximal superior inferior rami. Left proximal femur intact. Questionable small corner fracture through the anterior aspect of the left sacral ala. Nate Sparrow MD Hospital Course This is a pleasant 75-year-old white female with past medical history of COPD, previous fall with right intertrochanteric hip fracture, colon cancer, hypertension, hyperlipidemia. Patient presented to the emergency room after she had a fall. Patient indicates that she was monitoring her 's ambulation as he recently started using a cane when she tripped and fell on concrete landing on her left side. She complained of pain to the left hip. She did not hit her head, no loss of consciousness. No neck pain. No preceding symptoms such as dizziness, chest pain, shortness of breath, lightheadedness. In the emergency room, patient was evaluated, laboratory workup was unremarkable. Imaging studies were completed showing mild displacement fracture of left pubic bone extended into the left inferior and superior pubic rami. Patient has not ambulated this morning. At this time she' s sitting up in bed waiting for breakfast. Pain is well-controlled. No chest pain, no shortness of breath, no recent fevers, no chills. Indicates COPD is well-controlled, has oxygen tank at home but only uses as needed. Had been doing relatively well at home. Patient was admitted for further evaluation and treatment (1) Fracture, pelvis closed (2) COPD (chronic obstructive pulmonary disease) (3) Fall (4) Hypotension During the course of the hospitalization, the following to place: 75-year-old female presented to the emergency room after she tripped and fell on concrete parking lot, imaging studies completed showed mildly displaced fracture of the left pubic bone extending into the left inferior and superior pubic rami -Ortho consultation-input appreciated, non surgical tx to consist of PT and pain management -PT for evaluation and treatment,did ok with ambulation, used walker . Recommendations were for home with home health care -Pain management-pain was well managed, requested letter narcotic. -Antiemetics PRN -CM arranged [facility] COPD, stable -DuoNeb's when necessary -Oxygen at 2 L as needed -No distress Hypotension, hx HTN on meds, asymptomatic. Patient indicated that her blood pressure tended to run low. She had been on medications for many years. -BP meds held -IV bolus given -BP better 100s -Instructed to stop taking Lisinopril and Coreg and f/u PCP one week. Patient verbalized understanding. CM consulted to arrange [facility], PT Heparin for DVT prophylaxis Patient stable, discharged home with home health care Instructed to: F/U PCP 1 week Diet-heart healthy Activity-as tolerated, no driving Pt Condition on Discharge: Stable Discharge Disposition: Disch w/ Home Health Serv Discharge Instructions DIET: Follow Instructions for: Heart Healthy Diet Activities you can perform: Weight Bearing as David Other Activity Instructions: no driving Follow up Referrals: PCP Follow-up New Medications: Hydrocodone-Acetaminophen ([place]) 7.5-325 mg Tab 1 TAB PO Q4H PRN PAIN #31 Ref 0 TAB Continued Medications: Alendronate (Alendronate) 70 Mg Tab 70 MG PO Q7D Osteporosis Treatment #4 Ref 0 TAB Budesonide-Formoterol Inh (Symbicort Inh) 80-4.5 Mcg/Act Aero 1 PUFF INH Q12HR Asthma Management #1 Ref 0 INHALER Carvedilol (Carvedilol) 3.125 Mg Tab 3.125 MG PO BID #60 Ref 0 TAB Lovastatin (Lovastatin) 10 Mg Tab 10 MG PO DAILY Cholesterol Management #30 Ref 0 TAB Discontinued Medications: Enalapril (Enalapril) 2.5 Mg Tab 2.5 MG PO DAILY #30 Ref 0 TAB Sofia Lyons Mar 22, 2016 11:57 Sofia Lyons Mar 22, 2016 11:57
--- NOTE | 2016-03-22 12:05 | HHI.FF ---
Face to Face Verification Diagnosis: (1) Fall (2) Pubic ramus fracture Physical Therapy Order: Evaluate and Treat Home Health Nursing Order: Medical education Nursing assessment with vital signs Safe Technician Order: To Evaluate: Support services Order: To Provide: Community services I have seen patient Cailin Osorio on 03/22/16. My clinical findings support the need for the requested home health care services because: Deconditioned w/ increased weakness I certify that my clinical findings support that this patient is homebound because: Unsteady gait/balance Sofia Lyons Mar 22, 2016 12:05
== END 2016-03-22 13:54 | disposition home health service (06) ==
LOC: PHED 17:13 → INTOOBSV 21:57 → PHEDA 21:57 → N06A 03-21 00:52
PROVIDERS: ADMIT Specialist; ATTEND Specialist
DX: S32.599A Other specified fracture of unspecified pubis, initial encounter for closed fracture (principal); J44.9 Chronic obstructive pulmonary disease, unspecified; I95.9 Hypotension, unspecified; I10 Essential (primary) hypertension; E78.5 Hyperlipidemia, unspecified; K21.9 Gastro-esophageal reflux disease without esophagitis; M81.0 Age-related osteoporosis without current pathological fracture; F17.210 Nicotine dependence, cigarettes, uncomplicated; Z79.899 Other long term (current) drug therapy; Z85.038 Personal history of other malignant neoplasm of large intestine; Z85.41 Personal history of malignant neoplasm of cervix uteri; Z99.81 Dependence on supplemental oxygen; Z96.641 Presence of right artificial hip joint; Z93.3 Colostomy status; W01.0XXA Fall on same level from slipping, tripping and stumbling without subsequent striking against object, initial encounter
CPT/HCPCS: 73502; 73700; 80048; 80053; 81001; 85025; 93005; 94640; 94664; 97163; 99285; G0378; G8987; G8988; J1644; J7030

== ENCOUNTER 2016-04-10 20:29 | Inpatient (IN) | payer OTHER, MEDICARE ==
[2016-04-10] VITALS (10 sets, daily range): BP systolic 62–114; BP diastolic 39–62; PULSE 80–92; RESP 20–26; TEMP 97.7–97.9; O2SAT 94–98
[~2016-04-10] VITALS: Ht 154.9 cm; Wt 59.3 kg
[~2016-04-10 20:29] MED LIST changes: -ALBUCI INH; +ALEN1TAB48 PO; -ALEN70TA39 PO; -ALPR.5; -CALC250 PO; +CARV3.12 PO; -CARV3.125 PO; -ENAL5 PO; +HYDR-3288 PO; -LEVA500T PO; -PRED50 PO; -WALKER STANDARD; -Z.0.OXYGENDME NC
[2016-04-10] MEDS ORDERED: FURO20TA PO (20:41)
[2016-04-10] MEDS ORDERED: SODIUM CHLOR 0.9% 1000 ML INJ 1,000 ML IV SCH (21:17)
[2016-04-10] MEDS ORDERED: SODIUM CHLORIDE 0.9% FLUSH 5 ML FLUSH IVF PRN ×2 (21:30→23:45)
[2016-04-10] MEDS ORDERED: MORPHINE SULFATE 4 MG/ML INJ IV PUSH ONE (21:30)
[2016-04-10] MEDS ORDERED: RESP: ALBUTEROL 2.5 MG/IPRATROPIUM 0.5 MG NEB (SCH) NEB ONE (21:30)
[2016-04-10] MEDS ORDERED: ONDANSETRON HCL 4 MG/2 ML VIAL IVP ONE (21:30)
--- NOTE | 2016-04-10 21:44 | PD ---
HPI Chief Complaint: Abdominal Pain Time Seen by Provider: 21:17 Travel History International Travel<30 days: No Contact w/Intl Traveler<30days: No Traveled to known affect area: No History of Present Illness HPI 75-year-old female presents to the emergency department by private transportation for complaint of severe abdominal pain since 4 PM yesterday. Pain is persistent. Patient has associated nausea. No vomiting. Patient's last bowel movement was yesterday and normal for her. Patient has prior history of colon cancer with partial colectomy colostomy status post revision and episodes of obstruction. Patient denies fever chills. Patient also has severe COPD and reports prior history of CHF. Patient recently hospitalized 12/25 for pelvic fracture. Patient reports abdominal pain is severe but nonradiating. No dysuria frequency urgency denies prior history of colitis or diverticulitis. Patient also has history of hypertension dyslipidemia PFSH Past Medical History Narrative Medical Arthritis hypertension dyslipidemia colon cancer cervical cancer radiation therapy partial colectomy colostomy colostomy reversal small bowel obstruction hip fracture CHF; no current tobacco use; nursing notes reviewed Arthritis: Yes Asthma: No Blood Disorders: No Cancer: Yes (CERVICAL, COLON) Cardiovascular Problems: No Chemotherapy: Yes (with colon cancer in 1995) Congestive Heart Failure: Yes COPD: Yes Diabetes: No Diminished Hearing: No Endocrine: No Gastrointestinal Disorders: Yes (hx of COLON CANCER ) GERD: Yes Genitourinary: No Hepatitis: No Hiatal Hernia: No Immune Disorder: No Implanted Vascular Access Dvce: Yes Musculoskeletal: Yes Neurologic: No Psychiatric: No Respiratory: Yes (COPD) Radiation Therapy: Yes (with colon 1995) Sleep Apnea: No Thyroid Disease: No Ulcer: No Tetanus Vaccination: Unknown ?: Not Menopausal: Yes Past Surgical History Abdominal Surgery: Yes (States had abd sx for a partial obstruction r/t colon cancer) AICD: No Appendectomy: No Arteriovenous Shunt: No Cardiac Surgery: No Cholecystectomy: No Ear Surgery: No Endocrine Surgery: No Eye Surgery: Yes (REGLA. CATARACT EXTRACT.) Genitourinary Surgery: No Gynecologic Surgery: Yes (COLON/CERVICAL CANCER WITH HYSTERECTOMY ) Hysterectomy: Yes Insulin Pump: No Joint Replacement: No Neurologic Surgery: No Oral Surgery: No Pacemaker: No Thoracic Surgery: Yes (LUMBAR LAMINECTOMY ) Other Surgery: Yes Social History Alcohol Use: No Tobacco Use: No (quit 2 years ago smoked cigs in early 20's) Substance Use: No Allergies-Medications (Allergen,Severity, Reaction): Coded Allergies: Keflex (Verified Allergy, Severe, Itching, 04/10/16) Vancomycin (Verified Allergy, Severe, 04/10/16) REACTION NOT GIVEN Cephalosporins (Verified Allergy, Intermediate, 04/10/16) Itching Vicodin (Verified Allergy, Unknown, 04/10/16) Reported Meds & Prescriptions Reported Meds & Active Scripts Active [place] (Hydrocodone-Acetaminophen) 7.5-325 mg Tab 1 Tab PO Q4H PRN Reported Furosemide 20 Mg Tab 20 Mg PO DAILY Lovastatin 10 Mg Tab 10 Mg PO DAILY Alendronate (Alendronate Sodium) 70 Mg Tab 70 Mg PO Q7D Carvedilol 3.125 Mg Tab 3.125 Mg PO BID Symbicort Inh (Budesonide/Formoterol Fumarate) 80-4.5 Mcg/Act Aero 1 Puff INH Q12HR Review of Systems Except as stated in HPI: all other systems reviewed are Neg General / Constitutional: No: Fever, Chills HENT: No: Congestion Cardiovascular: No: Chest Pain or Discomfort Respiratory: Positive: Shortness of Breath, No: Cough Gastrointestinal: Positive: Nausea, Abdominal Pain, No: Vomiting, Diarrhea, Hematemesis, Hematochezia Genitourinary: No: Dysuria, Flank Pain Musculoskeletal: Positive: Edema (chronic pedal), No: Myalgias, Arthralgias Skin: No Rash Neurologic: No: Weakness Psychiatric: Positive: Anxiety Hematologic/Lymphatic: No: Easy Bruising Physical Exam Narrative GENERAL: Well-developed elderly female in obvious discomfort and mild respiratory distress SKIN: Warm and dry. HEAD: Normocephalic. EYES: No scleral icterus. No injection or drainage. NECK: Supple, trachea midline. No JVD or lymphadenopathy. CARDIOVASCULAR: Regular rate and rhythm without murmurs, gallops, or rubs. RESPIRATORY: Breath sounds equal bilaterally diminished breath sounds no rales. No accessory muscle use. GASTROINTESTINAL: Abdomen soft, diffusely tender with voluntary guarding no rebound, mildly distended. MUSCULOSKELETAL: No cyanosis, or edema. Radial pulses 2+ to palpation and dorsalis pedis pulses 2+ to palpation. BACK: Nontender without obvious deformity. No CVA tenderness. Data Data Last Documented VS Vital Signs Date Time Temp Pulse Resp B/P Pulse Ox O2 Delivery O2 Flow Rate FiO2 04/10/16 23:29 20 04/10/16 23:24 92 114/55 97 Nasal Cannula 3 04/10/16 21:03 97.9 Orders Complete Blood Count With Diff (04/10/16:17) Comprehensive Metabolic Panel (04/10/16 21:17) Lipase (04/10/16 21:17) Lactic Acid (04/10/16 21:17) Prothrombin Time / Inr (Pt) (04/10/16:) Act Partial Throm Time (Ptt) (04/10/16 21:17) Urinalysis - C+S If Indicated (04/10/16:17) Iv Access Insert/Monitor (04/10/16:17) Ecg Monitoring (04/10/16:) Oximetry (04/10/16:17) Ondansetron Inj (Zofran Inj) (04/10/16 21:30) Sodium Chlor 0.9% 1000 Ml Inj (Ns 1000 M (04/10/16:17) Sodium Chloride 0.9% Flush (Ns Flush) (04/10/16 21:30) Electrocardiogram (04/10/16:17) Chest, Single Ap (04/10/16:17) Troponin I (04/10/16:17) Type And Screen (04/10/16:17) Morphine Inj (Morphine Inj) (04/10/16 21:30) Albuterol-Ipratropium Neb (Duoneb Neb) (04/10/16 21:30) Blood Culture (04/10/16 21:38) Sodium Chlor 0.9% 250 Ml Inj (Ns 250 Ml (04/10/16 22:00) Ct Abd/Pel W Iv Contrast(Rout) (04/10/16 ) Iohexol 350 Inj (Omnipaque 350 Inj) (04/10/16 22:18) Urine Culture (04/10/16 21:50) Albuterol-Ipratropium Neb (Duoneb Neb) (04/10/16 23:30) Admit To Inpatient (04/10/16 ) Vital Signs (Adult) Q4H (04/10/16 23:30) Activity Oob With Assistance (04/10/16 23:30) Intake + Output BETI.QSHIFT (04/10/16 23:30) Diet Npo (04/11/16 Breakfast) Sodium Chlor 0.9% 1000 Ml Inj (Ns 1000 M (04/10/16 23:30) Sodium Chloride 0.9% Flush (Ns Flush) (04/10/16 23:30) Sodium Chloride 0.9% Flush (Ns Flush) (04/11/16 09:00) Ondansetron Inj (Zofran Inj) (04/10/16 23:30) Bisacodyl Supp (Dulcolax Supp) (04/10/16 23:30) Comprehensive Metabolic Panel (04/11/16 06:00) Complete Blood Count With Diff (04/11/16 06:00) Scd Bilateral/Knee High BETI.BID (04/10/16 23:30) Scot Bilateral/Knee High BETI.QSHIFT (04/10/16 23:30) Acetaminophen (Tylenol) (04/10/16 23:30) Morphine Inj (Morphine Inj) (04/10/16 23:30) Morphine Inj (Morphine Inj) (04/10/16 23:30) Inpatient Certification (04/10/16 ) Consult General Surgery (04/10/16 ) Budeson-Formot 80-4.5 Mcg Inh (Symbicort (04/11/16 09:00) Admit Order (Ed Use Only) (04/10/16 ) ^ Saline Lock (04/10/16 23:33) Resp Oxygen Eren C Titrat 1-4 L (04/10/16 ) ^ Notify Dr: Other (04/10/16 23:33) Sodium Chloride 0.9% Flush (Ns Flush) (04/11/16 09:00) Sodium Chloride 0.9% Flush (Ns Flush) (04/10/16 23:45) NPO (04/10/16 23:33) Labs Laboratory Tests Test 04/10/16 04/10/16 21:34 21:50 White Blood Count 13.3 TH/MM3 Red Blood Count 4.70 MIL/MM3 Hemoglobin 14.3 GM/DL Hematocrit 43.0 % Mean Corpuscular Volume 91.5 FL Mean Corpuscular Hemoglobin 30.5 PG Mean Corpuscular Hemoglobin 33.3 % Concent Red Cell Distribution Width 14.3 % Platelet Count 360 TH/MM3 Mean Platelet Volume 8.1 FL Neutrophils (%) (Auto) 74.4 % Lymphocytes (%) (Auto) 8.8 % Monocytes (%) (Auto) 13.4 % Eosinophils (%) (Auto) 0.7 % Basophils (%) (Auto) 2.7 % Neutrophils # (Auto) 9.8 TH/MM3 Lymphocytes # (Auto) 1.2 TH/MM3 Monocytes # (Auto) 1.8 TH/MM3 Eosinophils # (Auto) 0.1 TH/MM3 Basophils # (Auto) 0.4 TH/MM3 CBC Comment AUTO DIFF Differential Comment AUTO DIFF CONFIRMED Platelet Estimate NORMAL Platelet Morphology Comment NORMAL Red Cell Morphology Comment NORMAL Prothrombin Time 10.1 SEC Prothromb Time International 0.9 RATIO Ratio Activated Partial 23.0 SEC Thromboplast Time Sodium Level 137 MEQ/L Potassium Level 5.5 MEQ/L Chloride Level 100 MEQ/L Carbon Dioxide Level 29.9 MEQ/L Anion Gap 7 MEQ/L Blood Urea Nitrogen 11 MG/DL Creatinine 0.59 MG/DL Estimat Glomerular Filtration 99 ML/MIN Rate Random Glucose 98 MG/DL Lactic Acid Level 1.2 mmol/L Calcium Level 8.7 MG/DL Total Bilirubin 0.5 MG/DL Aspartate Amino Transf 34 U/L (AST/SGOT) Alanine Aminotransferase 19 U/L (ALT/SGPT) Alkaline Phosphatase 210 U/L Troponin I LESS THAN 0.02 NG/ML Total Protein 7.3 GM/DL Albumin 3.4 GM/DL Lipase 384 U/L Blood Type O POSITIVE Antibody Screen NEGATIVE Blood Bank Comment Urine Collection Type CATH Urine Color YELLOW Urine Turbidity CLEAR Urine pH 5.5 Urine Specific [place] 1.032 Urine Protein NEG mg/dL Urine Glucose (UA) NEG mg/dL Urine Ketones 15 mg/dL Urine Occult Blood SMALL Urine Nitrite NEG Urine Bilirubin NEG Urine Leukocyte Esterase NEG Urine RBC 4-9 /hpf Urine WBC 0-2 /hpf Urine Squamous Epithelial 0-3 /hpf Cells Urine Bacteria RARE /hpf Urine Mucus MOD /lpf Microscopic Urinalysis Comment CULTURE INDICATED MDM Medical Decision Making Medical Screen Exam Complete: Yes Emergency Medical Condition: Yes Medical Record Reviewed: Yes Interpretation(s) EKG normal sinus rhythm rate 88 PACs with P pulmonale no acute ST elevation or injury pattern change Differential Diagnosis Abdominal pain, abdominal aortic aneurysm, aortic dissection, ischemic bowel/ colitis, small bowel obstruction, diverticulitis, renal colic, pneumonia, ACS Narrative Course 75-year-old female presents to the emergency department severe abdominal pain persistent since yesterday around 4 PM with prior history of partial colectomy colostomy post reversal and previous small bowel obstruction. Patient's had mild nausea but no vomiting no dry heaves last bowel movement was yesterday. Patient denies fever chills and has had good urine output. Patient repeat rates pain 5/10 in intensity and is unable to lay supine secondary to severe pain. Patient is also on narcotic pain medication for pelvic pain secondary to pelvic fracture sustained status post fall 03/20/16. Patient requesting pain medication. Suspect patient has recurrent bowel obstruction. Patient blood pressure dropped after receiving 2 mg of morphine and complaining of increasing pain suspect blood pressure may reflect narcotic administration however in view of increasing pain and lower blood pressure patient taken stat to the CT department to evaluate for possible ruptured abdominal aortic aneurysm versus viscus perforation. CT abdomen and pelvis pulmonary review does not show evidence of abdominal aortic aneurysm or free fluid or free air changes are consistent with small bowel obstruction Patient return to ED from CT with improved blood pressure have her in view of episode of hypertension plan is to insert a central line risk benefit discussed with patient and patient refuses a central line at this time additional peripheral IV access obtained. Patient given total of 1 L normal saline bolus. CT abdomen and pelvis consistent with ileus with obstructing adhesions and distal retained stool per reading radiologist Dr. Marquez; history and CT findings consistent with small bowel obstruction secondary to adhesions. Plan is to admit patient for ongoing bowel rest IV fluid hydration and at this time even though patient has no nausea that has been no vomiting will discuss NG tube insertion. Patient will be admitted to medicine service. BP: 114/54. Patient refuses NGT Critical Care Narrative Aggregate critical care time was 40 minutes. Time to perform other separately billable procedures was not included in the critical care time. My time did not include minutes spent treating any other patients simultaneously or on activities that did not directly contribute to the patient's treatment. The services I provided to this patient were to treat and/or prevent clinically significant deterioration that could result in: Bowel ischemia, respiratory failure, shock, I provided critical care services requiring my management, as noted below: Chart data review, documentation time, medication orders and management, vital sign assessments/reviewing monitor data, ordering and reviewing lab tests, ordering and interpreting/reviewing x-rays and diagnostic studies, care of the patient and discussion of the patient with the admitting physicians. Sepsis Criteria SIRS Criteria (2 or more): Heart rate over 90, WBC > 42229, < 4000 or > 10% bands Physician Communication Physician Communication call placed to [facility] service discussed with Dr Means for admission w request to admit to [facility] Diagnosis Primary Impression: SBO (small bowel obstruction) Additional Impressions: COPD (chronic obstructive pulmonary disease) SIRS (systemic inflammatory response syndrome) Admitting Information Admitting Physician Requests: Admit Noemi Anderson MD Apr 10, 2016 21:44
[2016-04-10 21:50] LABS: AUTOMATED NEUTROPHIL # 9.8 TH/MM3 (1.8-7.7); BASOPHIL # 0.4 TH/MM3 (0-0.2); BASOPHIL % 2.7 % (0.0-2.0); EOSINOPHIL # 0.1 TH/MM3 (0-0.4); EOSINOPHIL % 0.7 % (0.0-4.0); LYMPH % 8.8 % (9.0-44.0); LYMPHOCYTE # 1.2 TH/MM3 (1.0-4.8); MEAN CELL VOLUME 91.5 FL (80.0-100.0); MEAN CORPUSCULAR HEMOGLOBIN 30.5 PG (27.0-34.0); MEAN CORPUSCULAR HGB CONC 33.3 % (32.0-36.0); MONO % 13.4 % (0.0-8.0); NEUT % 74.4 % (16.0-70.0); PLATELET COUNT 360 TH/MM3 (150-450); RED CELL DISTRIBUTION WIDTH 14.3 % (11.6-17.2); WHITE BLOOD COUNT 13.3 TH/MM3 (4.0-11.0)
[2016-04-10 21:51] LABS: HEMO FLAGS AUTO DIFF
[2016-04-10] MEDS ORDERED: SODIUM CHLOR 0.9% 250 ML INJ 250 ML IV ONE (22:00)
[2016-04-10 22:04] LABS: CHLORIDE 100 MEQ/L (98-107); SODIUM (NA) 137 MEQ/L (136-145)
[2016-04-10 22:06] LABS: PLATELET ESTIMATE SMEAR NORMAL (NORMAL); PLATELET MORPHOLOGY NORMAL (NORMAL); SCAN/DIFF AUTO DIFF CONFIRMED
[2016-04-10 22:08] LABS: ANION GAP 7 MEQ/L (5-15); BICARBONATE 29.9 MEQ/L (21.0-32.0); BLOOD UREA NITROGEN 11 MG/DL (7-18)
[2016-04-10 22:10] LABS: ALT (GPT) 19 U/L (10-53)
[2016-04-10 22:11] LABS: AST (GOT) 34 U/L (15-37); GLOMERULAR FILTRATION RATE 99 ML/MIN (>89); INTERNATIONAL NORMALIZED RATIO 0.9 RATIO; POTASSIUM 5.5 MEQ/L (3.5-5.1); PROTHROMBIN TIME - PATIENT 10.1 SEC (9.8-11.6)
[2016-04-10 22:12] LABS: TOTAL BILIRUBIN ADULT 0.5 MG/DL (0.2-1.0)
[2016-04-10 22:13] LABS: ALKALINE PHOSPHATASE 210 U/L (45-117)
[2016-04-10 22:18] LABS: BLOOD, URINE SMALL (NEG); GLUCOSE,URINE NEG (NEG); KETONE, URINE 15 mg/dL (NEG); NITRITE,URINE NEG (NEG); PH, URINE 5.5 (5.0-8.5)
[2016-04-10] MEDS ORDERED: IOHEXOL 350 MG/ML 10 ML VIAL (for RAD DIAG) IV ONE (22:18)
--- NOTE | 2016-04-10 22:27 | RADHPO ---
EXAM DATE/TIME: 04/10/2016 22:02 [facility] COMPARISON: CT ABDOMEN & PELVIS W CONTRAST, September 02, 2013, 13:46. INDICATIONS : Diffuse abdominal pain with nausea. IV CONTRAST: 96 cc Omnipaque 350 (iohexol) IV ORAL CONTRAST: No oral contrast ingested. RADIATION DOSE: 7.5 CTDIvol (mGy) MEDICAL HISTORY : Chronic obstructive pulmonary disease. Carcinoma, colon. Carcinoma, cervical. SURGICAL HISTORY : Hysterectomy. ENCOUNTER: Initial ACUITY: 1 day PAIN SCALE: 8/10 LOCATION: Abdomen. TECHNIQUE: Volumetric scanning of the abdomen and pelvis was performed. Using automated exposure control and ad justment of the mA and/or kV according to patient size, radiation dose was kept as low as reasonably achievable to obtain optimal diagnostic quality images. FINDINGS: LOWER LUNGS: The visualized lower lungs are clear. LIVER: Homogeneous density without lesion. There is no dilation of the biliary tree. No calcified gallston es. SPLEEN: Normal size without lesion. PANCREAS: Within normal limits. KIDNEYS: Normal in size and shape. There is no mass, stone or hydronephrosis. Simple right renal cyst is stab le. ADRENAL GLANDS: Within normal limits. VASCULAR: There is no aortic aneurysm. BOWEL/MESENTERY: Multiple distended loops of proximal to mid small bowel are noted. There is an acute transition ident ified in the upper pelvis which is associated with bandlike densities within the mesentery. The small intestinal tract distal to this is normal in caliber. Significant amount retained stool is present t hroughout the colon. There are no extraintestinal inflammatory changes or evidence of abnormal fluid collections. ABDOMINAL WALL: Within normal limits. RETROPERITONEUM: There is no lymphadenopathy. BLADDER: No wall thickening or mass. REPRODUCTIVE: Uterus has been removed. INGUINAL: There is no lymphadenopathy or hernia. MUSCULOSKELETAL: Degenerative disc disease and facet arthropathy is seen throughout the lumbar spine. Trochanteric jamal l is identified in the right hip. CONCLUSION: Proximal to mid small bowel ileus with suspected obstructing adhesion. Significant amount retained stool in the colon. No evidence of extra intestinal fluid collections or inflammation. Status post hysterectomy. Rosendo Marquez MD on April 10, 2016 at 22:19 Board Certified Radiologist. This report was verified electronically.
[2016-04-10 22:28] LABS: METHOD OF COLLECTION CATH; URINE COLOR YELLOW (YELLW/STRAW)
[2016-04-10 22:29] LABS: MUCUS URINE MOD /lpf (OCC); WBC, URINE 0-2 /hpf (0-5)
[2016-04-10 22:30] LABS: BACTERIA, URINE RARE /hpf; COMMENT (UR) CULTURE INDICATED; CULTURE IF INDICATED CULTURE INDICATED; SQUAMOUS EPITHELIAL CELL URINE 0-3 /hpf (0-5)
--- NOTE | 2016-04-10 22:36 | RADHPO ---
EXAM DATE/TIME: 04/10/2016 22:08 [facility] COMPARISON: CHEST SINGLE AP, June 08, 2015, 17:40. INDICATIONS : Shortness of breath. MEDICAL HISTORY : Chronic obstructive pulmonary disease. Carcinoma, colon. Carcinoma, cervical SURGICAL HISTORY : Hysterectomy. ENCOUNTER: Initial ACUITY: 1 day PAIN SCORE: 8/10 LOCATION: Bilateral chest FINDINGS: The lungs are hyperinflated. Chronic appearing interstitial prominence is noted. There is no evidence of consolidating airspace disease or suspicious mass densities. Heart and mediastinal structures appear stable. Old right-sided rib fractures are noted. CONCLUSION: COPD. No evidence of acute air space disease or significant congestion. Rosendo Marquez MD on April 10, 2016 at 22:33 Board Certified Radiologist. This report was verified electronically.
[2016-04-10] MEDS ORDERED: MORPHINE SULFATE 4 MG/ML INJ IV PRN (23:30)
[2016-04-10] MEDS ORDERED: SODIUM CHLORIDE 0.9% FLUSH 5 ML FLUSH FLUSH PRN (23:30)
[2016-04-10] MEDS ORDERED: BISACODYL 10 MG SUPP PR PRN (23:30)
[2016-04-10] MEDS: SODIUM CHLOR 0.9% 1000 ML INJ 1,000 ML IV SCH (23:55)
[2016-04-10] MEDS: ACETAMINOPHEN 325 MG TAB PO PRN (23:59)
[2016-04-11] VITALS (11 sets, daily range): BP systolic 78–114; BP diastolic 40–60; PULSE 47–94; RESP 17–20; TEMP 97.3–98.6; O2SAT 94–99
[2016-04-11] MEDS ORDERED: ONDANSETRON HCL 4 MG/2 ML VIAL IV PUSH ONE
[2016-04-11] MEDS: MORPHINE SULFATE 4 MG/ML INJ IV PRN ×2 (00:06→06:28)
[2016-04-11] MEDS: RESP: ALBUTEROL 2.5 MG/IPRATROPIUM 0.5 MG NEB (PRN) NEB (03:01)
[2016-04-11] MEDS ORDERED: SODIUM CHLORIDE 0.9% FLUSH 5 ML FLUSH IVF SCH (09:00)
[2016-04-11] MEDS: ACETAMINOPHEN 325 MG TAB PO PRN ×2 (09:07→20:13)
[2016-04-11] MEDS: ONDANSETRON HCL 4 MG/2 ML VIAL IVP PRN (09:08)
[2016-04-11] MEDS: BUDESONIDE-FORMOTEROL 80/4.5 MCG INHALER INH SCH ×2 (09:08→20:13)
[2016-04-11] MEDS: SODIUM CHLORIDE 0.9% FLUSH 5 ML FLUSH FLUSH SCH ×2 (09:09→20:15)
[2016-04-11] MEDS: SODIUM CHLOR 0.9% 1000 ML INJ 1,000 ML IV SCH ×2 (09:30→20:14)
--- NOTE | 2016-04-11 10:23 | HHI.HP ---
[facility] Primary Care Physician Russ Belle M.D. Admission Diagnosis SBO; copd Diagnoses: Chief Complaint: abdominal pain Travel History International Travel<30 Days: No Contact w/Intl Traveler <30 Da: No Traveled to Known Affected Are: No Sepsis Criteria SIRS Criteria (2 or more): Heart rate over 90, WBC > 01393, < 4000 or > 10% bands Severe Sepsis (+one): Hypotension History of Present Illness 75-year-old female with history of osteoarthritis, colon cancer s/p partial colectomy, colostomy and reversal, prior SBO, cervical cancer, CHF, presents with a 2 day history of abdominal pain. The patient reports on 04/09 around 4 PM she started to develop some mild diffuse cramping abdominal pain; she states she didn't think much of it because she had a normal, nonbloody brown formed stool earlier that day. The next day on 04/10 her abdominal pain worsened, located diffusely throughout bilateral lower quadrants, described as severe constant cramping 10/10 pains. She took a Aurora around noon which initially helped alleviate the pain, however the pain returned, she took another Aurora around 6 PM and this did not relieve the pain therefore she decided to come to the ER. Denies fevers/chills. She reports nausea, no vomiting. She describes severe heartburn, worse with lying flat, relieved by sitting upright on the side of the bed. The patient reports a history of SBO secondary to adhesion however had intractable nausea/vomiting at that time. She is known to Dr. Galindo. The patient has no other medical complaints at this time. Review of Systems Constitutional: DENIES: Diaphoretic episodes, Fever, Chills, Dizziness, Change in appetite Endocrine: DENIES: Polydipsia, Polyuria, Polyphagia Eyes: DENIES: Blurred vision, Vision loss, Double Vision Ears, nose, mouth, throat: DENIES: Throat pain, Running Nose, Odynophagia Respiratory: DENIES: Cough, Shortness of breath Cardiovascular: COMPLAINS OF: Lower Extremity Edema, DENIES: Chest pain, Syncope, Dyspnea on Exertion Gastrointestinal: COMPLAINS OF: Abdominal pain, Constipation, Nausea, DENIES: Black stools, Bloody stools, Diarrhea, Vomiting Genitourinary: DENIES: Urinary frequency, Urgency, Dysuria Musculoskeletal: DENIES: Joint pain, Back pain, Neck pain Integumentary: DENIES: Abnormal pigmentation, Pruritus, Rash Hematologic/lymphatic: DENIES: Bruising, Lymphadenopathy Immunologic/allergic: DENIES: Eczema, Urticaria Neurologic: DENIES: Abnormal gait, Headache, Localized weakness Psychiatric: DENIES: Anxiety, Depression Past Family Social History Past Medical History osteoarthritis colon cancer s/p partial colectomy, colostomy and reversal Previous SBO cervical cancer CHF COPD GERD Past Surgical History Partial colectomy, colostomy and reversal Hysterectomy Lumbar laminectomy Bilateral cataract surgery Bilateral knee arthroscopies Intramedullary nail fixation right hip intertrochanteric fracture Tonsillectomy Reported Medications Aurora (Hydrocodone-Acetaminophen) 7.5-325 mg Tab 1 Tab PO Q4H PRN Furosemide 20 Mg Tab 20 Mg PO DAILY Lovastatin 10 Mg Tab 10 Mg PO DAILY Alendronate (Alendronate Sodium) 70 Mg Tab 70 Mg PO Q7D Carvedilol 3.125 Mg Tab 3.125 Mg PO BID Symbicort Inh (Budesonide/Formoterol Fumarate) 80-4.5 Mcg/Act Aero 1 Puff INH Q12HR Allergies: Coded Allergies: Keflex (Verified Allergy, Severe, Itching, 04/10/16) Vancomycin (Verified Allergy, Severe, 04/10/16) REACTION NOT GIVEN Cephalosporins (Verified Allergy, Intermediate, 04/10/16) Itching Vicodin (Verified Allergy, Unknown, 04/10/16) Active Ordered Medications Current Medications Medications (Trade) Dose Ordered Sig/Mary Route Start Time Stop Time Status Last Admin (NS 1000 ml Inj) 1,000 ml @ 100 mls/hr Q10H IV 04/10/16 23:30 04/10/16 23:55 (NS Flush) 2 ml UNSCH PRN FLUSH 04/10/16 23:30 (NS Flush) 2 ml BID FLUSH 04/11/16 09:00 04/11/16 09:09 (Zofran Inj) 4 mg Q6H PRN IVP 04/10/16 23:30 04/11/16 09:08 (Dulcolax Supp) 10 mg DAILY PRN MI 04/10/16 23:30 (Tylenol) 650 mg Q6H PRN PO 04/10/16 23:30 04/11/16 09:07 (Morphine Inj) 0.5 mg Q3H PRN IV 04/10/16 23:30 04/11/16 06:28 (Morphine Inj) 1 mg Q3H PRN IV 04/10/16 23:30 (Symbicort 80-4.5 Mcg Inh) 1 puff Q12HR INH 04/11/16 09:00 04/11/16 09:08 Family History Father with lung cancer Mother with heart disease Social History Prior tobacco use, smoked 1PPD since her 20s, quit 1+ year ago Denies any alcohol or illegal drug use Lives at home with , has 2 adult grandsons who live with her Physical Exam Vital Signs Vital Signs Date Time Temp Pulse Resp B/P Pulse Ox O2 Delivery O2 Flow Rate FiO2 04/11/16 08:30 85 95/47 04/11/16 08:15 98.6 52 20 78/42 97 04/11/16 06:45 18 04/11/16 06:02 98.0 77 20 84/41 95 04/11/16 04:53 92 20 84/40 96 Nasal Cannula 2 04/11/16 02:59 20 04/11/16 02:55 97.9 94 20 104/46 95 Nasal Cannula 2.5 04/11/16 00:45 89 20 93/40 96 Nasal Cannula 3 04/11/16 00:38 20 04/11/16 00:03 90 20 114/53 96 Nasal Cannula 3 04/10/16 23:29 20 04/10/16 23:24 92 20 114/55 97 Nasal Cannula 3 04/10/16 23:06 98 Nasal Cannula 3 04/10/16 22:48 92 20 113/55 97 Nasal Cannula 3 04/10/16 22:37 92 20 62/44 97 Nasal Cannula 3 04/10/16 22:20 90 20 110/49 98 Nasal Cannula 3 04/10/16 21:54 80 20 79/39 94 Nasal Cannula 3 04/10/16 21:49 80 20 91/39 96 Nasal Cannula 3 04/10/16 21:40 20 04/10/16 21:32 95 Nasal Cannula 3.00 04/10/16 21:03 97.9 87 26 113/62 97 Nasal Cannula 3 04/10/16 21:03 26 04/10/16 20:36 97.7 86 22 113/58 94 Physical Exam GENERAL: Well-nourished, well-developed pleasant elderly female patient in mild distress secondary to pain, sitting upright on side of bed, hunched over. SKIN: Warm and dry. No rash. HEAD: Normocephalic. Atraumatic. EYES: Pupils equal and round. No scleral icterus. No injection or drainage. ENT: No nasal bleeding or discharge. Mucous membranes pink and moist. NECK: Supple. Trachea midline. CARDIOVASCULAR: Regular rate and rhythm. S1, S2 noted. No murmur appreciated. RESPIRATORY: No accessory muscle use. Clear to auscultation. Breath sounds equal bilaterally. GASTROINTESTINAL: Abdomen soft, nondistended, mild diffuse lower abdominal TTP. Normoactive bowel sounds x4. Well-healed abdominal surgical scars. MUSCULOSKELETAL: No obvious deformities. Extremities without clubbing, cyanosis , or edema. NEUROLOGICAL: Awake and alert. No obvious cranial nerve deficits. Motor grossly within normal limits. Normal speech. PSYCHIATRIC: Appropriate mood and affect; insight and judgment normal. Laboratory Laboratory Tests Test 04/10/16 04/10/16 21:34 21:50 White Blood Count 13.3 Red Blood Count 4.70 Hemoglobin 14.3 Hematocrit 43.0 Mean Corpuscular Volume 91.5 Mean Corpuscular Hemoglobin 30.5 Mean Corpuscular Hemoglobin 33.3 Concent Red Cell Distribution Width 14.3 Platelet Count 360 Mean Platelet Volume 8.1 Neutrophils (%) (Auto) 74.4 Lymphocytes (%) (Auto) 8.8 Monocytes (%) (Auto) 13.4 Eosinophils (%) (Auto) 0.7 Basophils (%) (Auto) 2.7 Neutrophils # (Auto) 9.8 Lymphocytes # (Auto) 1.2 Monocytes # (Auto) 1.8 Eosinophils # (Auto) 0.1 Basophils # (Auto) 0.4 CBC Comment AUTO DIFF Differential Comment AUTO DIFF CONFIRMED Platelet Estimate NORMAL Platelet Morphology Comment NORMAL Red Cell Morphology Comment NORMAL Prothrombin Time 10.1 Prothromb Time International 0.9 Ratio Activated Partial 23.0 Thromboplast Time Sodium Level 137 Potassium Level 5.5 Chloride Level 100 Carbon Dioxide Level 29.9 Anion Gap 7 Blood Urea Nitrogen 11 Creatinine 0.59 Estimat Glomerular Filtration 99 Rate Random Glucose 98 Lactic Acid Level 1.2 Calcium Level 8.7 Total Bilirubin 0.5 Aspartate Amino Transf 34 (AST/SGOT) Alanine Aminotransferase 19 (ALT/SGPT) Alkaline Phosphatase 210 Troponin I LESS THAN 0.02 Total Protein 7.3 Albumin 3.4 Lipase 384 Blood Type O POSITIVE Antibody Screen NEGATIVE Blood Bank Comment Urine Collection Type CATH Urine Color YELLOW Urine Turbidity CLEAR Urine pH 5.5 Urine Specific [place] 1.032 Urine Protein NEG Urine Glucose (UA) NEG Urine Ketones 15 Urine Occult Blood SMALL Urine Nitrite NEG Urine Bilirubin NEG Urine Leukocyte Esterase NEG Urine RBC 4-9 Urine WBC 0-2 Urine Squamous Epithelial 0-3 Cells Urine Bacteria RARE Urine Mucus MOD Microscopic Urinalysis Comment CULTURE INDICATED Date/Time Procedure Status Source Growth 04/10/16 21:50 Urine Culture Received Urine Catheterized Urine Pending 04/10/16 21:34 Aerobic Blood Culture Received Blood Peripheral Pending 04/10/16 21:34 Anaerobic Blood Culture Received Blood Peripheral Pending Result Diagram: 04/10/16213304/10/162133 Imaging Current Medications Medications (Trade) Dose Ordered Sig/Mary Route Start Time Stop Time Status Last Admin (NS 1000 ml Inj) 1,000 ml @ 100 mls/hr Q10H IV 04/10/16 23:30 04/10/16 23:55 (NS Flush) 2 ml UNSCH PRN FLUSH 04/10/16 23:30 (NS Flush) 2 ml BID FLUSH 04/11/16 09:00 04/11/16 09:09 (Zofran Inj) 4 mg Q6H PRN IVP 04/10/16 23:30 04/11/16 09:08 (Dulcolax Supp) 10 mg DAILY PRN MI 04/10/16 23:30 (Tylenol) 650 mg Q6H PRN PO 04/10/16 23:30 04/11/16 09:07 (Morphine Inj) 0.5 mg Q3H PRN IV 04/10/16 23:30 04/11/16 06:28 (Morphine Inj) 1 mg Q3H PRN IV 04/10/16 23:30 (Symbicort 80-4.5 Mcg Inh) 1 puff Q12HR INH 04/11/16 09:00 04/11/16 09:08 Assessment and Plan Problem List: (1) SIRS (systemic inflammatory response syndrome) ICD Code: R65.10 Status: Acute (2) Partial small bowel obstruction ICD Code: K56.69 Status: Acute Assessment and Plan 75-year-old female with history of osteoarthritis, colon cancer s/p partial colectomy, colostomy and reversal, prior SBO, cervical cancer, CHF, HLD, presents with a 2 day history of abdominal pain. Partial Small Bowel Obstruction: Abd/Pelvis CT images reviewed by me, showed proximal to mid small bowel ileus with suspected obstructing adhesion; significant amount of retained stool in the colon. WBC 13.3K, lactic acid 1.2. Keep NPO. Supportive treatment with IVF, antiemetics, and pain control with IV morphine prn. IV Protonix for heartburn. Consulted General Surgery, discussed with Dr. Flaherty, plan for Gastrografin Enema. SIRS Criteria: WBC 13.3K, HR 94, hypotensive. BP as low as 62/44. Suspect hypotension secondary to receiving pain medications and no oral intake. Lactic acid 1.2. S/p IVF boluses, continue IVF at 100cc/hr. Monitor CBC/BMP/Lactic Acid. Blood cultures pending. Hyperkalemia: Serum K 5.5, slight hemolysis noted. Repeat BMP. CHF/HLD: chronic, hold patient's lasix and Coreg secondary to hypotension. Continue patient's statin when no longer NPO. COPD: chronic, continue patient's Symbicort bid. Duonebs prn. DVT Prophylaxis: teds/SCDs Discussed with Dr. Atkinson and Dr. Flaherty. Discussed Condition With Patient, Dr. Atkinson, Dr. Flaherty, RN Physician Certification 2 Midnight Certification Type: Admission for Inpatient Services Order for Inpatient Services The services are ordered in accordance with Medicare regulations or non- Medicare payer requirements, as applicable. In the case of services not specified as inpatient-only, they are appropriately provided as inpatient services in accordance with the 2-midnight benchmark. Estimated LOS (days): 3 days is the estimated time the patient will need to remain in the hospital, assuming treatment plan goals are met and no additional complications. Post-Hospital Plan: Home Evelin Mcpherson PA-C Apr 11, 2016 10:22 am
[2016-04-11] MEDS ORDERED: DIATRIZOATE MEGLUM/DIATRIZOATE SOD 120 ML BTL (for RAD DIAG) RECTAL ONE (11:20)
--- NOTE | 2016-04-11 12:20 | MB ---
cc: FARHEEN BELL M.D. DATE OF CONSULTATION: 04/11/2016 REASON FOR CONSULTATION Abdominal pain, possible partial small-bowel obstruction. BRIEF HISTORY This is a very pleasant 75-year-old woman familiar to Dr. Galindo from an exploratory laparotomy and adhesiolysis and removal of a vegetable bezoar from the small bowel in 2010. She says she previously has had a partial colectomy for colon cancer by Dr. Gan remotely. She began developing lower abdominal discomfort on night and Wednesday she took a couple pain pills she had left over from a recent hip/pelvic fracture which was managed non-operatively. The first two pain pills helped, the third one did not and she had persistent crampy abdominal pain. She had a normal bowel movement night, she has passed a small amount of flatus. She has not had nausea or vomiting. She declines a nasogastric tube. She had a CT scan which demonstrates mild distension of small bowel with distal nondilated loops. Contrast does appear to get through the small bowel dilated areas and she has a large amount of retained stool in her right colon and hepatic flexure and proximal transverse colon. A small amount of stool in the rectum. ALLERGIES KEFLEX - WHICH CAUSES SEVERE ITCHING. SHE SAYS VICODIN - SHE IS NOT SURE OF THAT ALLERGIC REACTION. CHART ALSO MENTIONS VANCOMYCIN AN ALLERGY WITH UNKNOWN REACTION. PREVIOUS MEDICAL PROBLEMS COPD and CHF. Documentation within the chart also comments osteoarthritis, hypertension, hyperlipidemia, history of colon cancer, cervical cancer, and gastroesophageal reflux disease. PREVIOUS SURGERIES Hysterectomy. Partial colectomy. The exploratory laparotomy, adhesiolysis and removal of a vegetable bezoar from the small bowel. The computerized chart demonstrates additional surgeries of lumbar laminectomy, bilateral cataract surgery, knee arthroscopies, right hip surgery for an intertrochanteric fracture, and tonsillectomy. ROUTINE MEDICATIONS 1. Odell 7.5. 2. Lasix. 3. Lovastatin. 4. Alendronate. 5. Carvedilol. 6. Symbicort. Primary care doctor is Dr. Russ Belle. She does not have a concert pianist or a locomotive operator. FAMILY HISTORY Significant for lung cancer in her father who was a smoker, her mother had hypertension and a heart attack and at 60. SOCIAL HISTORY She is a previous smoker, she has quit. She denies alcohol or HIV or hepatitis risk factors. She apparently lives at home with her and has two adult grandsons who live with her. REVIEW OF SYSTEMS She denies unusual bleeding tendencies. She has no specific visual or hearing problems. No sinus or swallowing problems. She has known lung and heart disease. She denies liver or kidney problems. She has no history of strokes or seizures, diabetes or thyroid gland problems. Never been treated with blood thinning medicines and has had no bleeding complications associated with her prior surgeries. PHYSICAL EXAMINATION GENERAL: She is a well-developed, well-nourished, woman who is in mild distress. She is sitting up on the edge of the bed and occasionally belches. VITAL SIGNS: Temperature 98.6, pulse 85, respiratory rate 20, blood pressure 95/47, O2 sats 95-97% on 2 liters nasal cannula. HEENT: She is normocephalic, atraumatic. Her pupils are 1-2, round and reactive to light. Her sclerae are anicteric. Oropharynx shows a full upper denture plate, she is edentulous on the lower. She has mildly thickened mucus in the oral cavity. NECK: Her neck is supple without adenopathy. She has a midline trachea. No jugular venous distension. RESPIRATORY: Her lung sounds are mildly distant but clear bilaterally. There are no rales or rhonchi. CARDIOVASCULAR: Her heart sounds are regular without obvious murmur, rub or gallop. BREASTS: Specific breast exam was not performed. ABDOMEN: Her abdomen is very mildly distended. She has a healed midline incision from just above the umbilicus down below in the midline. She has normal bowel sounds. She has tenderness bilaterally in the lower outer quadrants of the abdomen. There is no rebound or guarding. There is no palpable incisional hernia. GENITAL/RECTAL: Exams were not repeated. EXTREMITIES: There is no cyanosis, clubbing or edema. She has got some dry sort of skin and may be signs of resolved edema in her lower extremities. She has a scar from her previous hip surgery on the right side. NEUROLOGIC: She is awake, alert, oriented. 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 LABORATORY DATA Labs from yesterday showed a white count of 13.3 and 74% neutrophils, hemoglobin was 14, platelet count was 360. Coag studies were normal. Potassium was high at 5.5, her creatinine was 11 with a BUN of 0.59, lactic acid was 1.2, total bilirubin 0.5, alk phos mildly elevated at 210, lipase was normal at 384, and albumin on the lower end of normal at 3.4. Urinalysis had some ketones, also had 4-9 red cells, rare bacteria and a culture was indicated. Urine culture and the blood cultures at this time are pending. IMAGING CT scan is with the above-mentioned findings. Chest x-ray showed no evidence of acute airspace disease or significant congestion. ASSESSMENT A 75-year-old woman with prior abdominal surgeries for colon cancer as well as exploratory laparotomy, adhesiolysis and removal of a vegetable bezoar from her small bowel [place] [address] suggests the possibility of partial small-bowel obstruction most likely etiology would be adhesions. She also has a large amount of stool in the right colon and especially at the hepatic flexure and proximal transverse colon. RECOMMENDATIONS Recommendation made for Gastrografin enema to try and clear the stool from the proximal colon and potentially stimulate normal bowel function. She has continued to receive IV fluids for hydration and her electrolytes will need to be followed. We will followup after the Gastrografin enema to see how she is doing. She is not actively vomiting and therefore I do not think we should push her into having a nasogastric tube placed. MD DANIEL Torres/ALONDRA /10:57 AM /11:43 AM
--- NOTE | 2016-04-11 12:46 | RADRPT ---
EXAM DATE/TIME: 04/11/2016 11:17 [facility] COMPARISON: CT ABDOMEN & PELVIS W CONTRAST, April 10, 2016, 22:02. INDICATIONS : Abdominal pain. FLUORO TIME: 2.4 minutes IMAGE COUNT: 10 CONTRAST: 1. [facility] MEDICAL HISTORY : Carcinoma, colon. SURGICAL HISTORY : Hysterectomy. Colon resection. Colostomy. Colostomy reversal. ENCOUNTER: Subsequent ACUITY: 3 days PAIN SCORE: 10/10 LOCATION: Bilateral abdomen. FINDINGS: Product Sales Engineer view of the abdomen demonstrates a nonobstructive bowel gas pattern. Large amount stool is pres ent within the right colon and transverse colon. No organomegaly is seen. There are degenerative shin ges of the lumbar spine with mild levoscoliosis. Enema tip was placed into the rectum with direct visualization and balloon was inflated without diffi culty. Gastrografin contrast was instilled in a retrograde fashion. The sigmoid colon and descending colon are normal in caliber and appearance. Transverse colon is mildly distended with stool material in the right colon is also moderately distended with stool material. I do not visualize a normal appe aring cecum but the patient has had surgery in this region. I could not reflux and a contrast into th e ileum. CONCLUSION: Large amount of stool in the transverse and ascending colon without a mass appreciated. I could not r eflux contrast into the terminal ileum and the cecum does not have a normal appearance but the patien t has had surgery in this region. Dave Liriano MD on April 11, 2016 at 12:41 Board Certified Radiologist. This report was verified electronically.
[2016-04-11] MEDS: PANTOPRAZOLE SODIUM 40 MG VIAL IV PUSH SCH (12:51)
[2016-04-11 16:15] LABS: AUTOMATED NEUTROPHIL # 10.3 TH/MM3 (1.8-7.7); BASOPHIL # 0.1 TH/MM3 (0-0.2); BASOPHIL % 0.6 % (0.0-2.0); EOSINOPHIL % 0.3 % (0.0-4.0); HEMATOCRIT 38.3 % (35.0-46.0); HEMO FLAGS DIFF FINAL; LYMPH % 3.9 % (9.0-44.0); LYMPHOCYTE # 0.5 TH/MM3 (1.0-4.8); MEAN CELL VOLUME 93.7 FL (80.0-100.0); MEAN CORPUSCULAR HEMOGLOBIN 30.3 PG (27.0-34.0); MEAN CORPUSCULAR HGB CONC 32.3 % (32.0-36.0); MONO % 10.1 % (0.0-8.0); NEUT % 85.1 % (16.0-70.0); PLATELET COUNT 272 TH/MM3 (150-450); RED BLOOD COUNT 4.09 MIL/MM3 (4.00-5.30); RED CELL DISTRIBUTION WIDTH 14.9 % (11.6-17.2); WHITE BLOOD COUNT 12.1 TH/MM3 (4.0-11.0)
[2016-04-11 16:40] LABS: ANION GAP 7 MEQ/L (5-15); AST (GOT) 14 U/L (15-37); BICARBONATE 28.5 MEQ/L (21.0-32.0); BLOOD UREA NITROGEN 12 MG/DL (7-18); CHLORIDE 106 MEQ/L (98-107); GLOMERULAR FILTRATION RATE 92 ML/MIN (>89); POTASSIUM 4.4 MEQ/L (3.5-5.1); SODIUM (NA) 141 MEQ/L (136-145)
[2016-04-11 16:43] LABS: ALKALINE PHOSPHATASE 166 U/L (45-117); ALT (GPT) 12 U/L (10-53); TOTAL BILIRUBIN ADULT 0.5 MG/DL (0.2-1.0)
--- NOTE | 2016-04-11 19:39 | EKG ---
Date Performed: 04/10/2016 Time Performed: 21:37:40 PTAGE: 75 years EKG: Sinus rhythm with PAC(s) with borderline 1st degree A-V block Since previous tracing, no significant change noted Borderline ECG PREVIOUS TRACING : 03/20/2016 22.15 DOCTOR: Torrey Oquendo Interpretating Date/Time 04/11/2016 19:38:48
[2016-04-12] VITALS (8 sets, daily range): BP systolic 89–103; BP diastolic 36–54; PULSE 59–93; RESP 17–20; TEMP 96.5–99.9; O2SAT 92–100
[2016-04-12] MEDS: ACETAMINOPHEN 325 MG TAB PO PRN (04:02)
[2016-04-12] MEDS: SODIUM CHLOR 0.9% 1000 ML INJ 1,000 ML IV SCH ×3 (05:00→23:01)
[2016-04-12] MEDS: BUDESONIDE-FORMOTEROL 80/4.5 MCG INHALER INH SCH ×2 (08:04→20:11)
[2016-04-12] MEDS: SODIUM CHLORIDE 0.9% FLUSH 5 ML FLUSH FLUSH SCH ×2 (08:05→20:12)
[2016-04-12] MEDS: MORPHINE SULFATE 4 MG/ML INJ IV PRN ×2 (08:12→22:50)
[2016-04-12] MEDS: PANTOPRAZOLE SODIUM 40 MG VIAL IV PUSH SCH (11:04)
--- NOTE | 2016-04-12 11:48 | HHI.PR ---
Subjective Subjective Notes "i feel fine, why don't you people just leave me alone, my bowels are fine". denies abdominal pain to me, reports a BM, no N/V per RN Objective Vitals/I&O Vital Signs Date Time Temp Pulse Resp B/P Pulse Ox O2 Delivery O2 Flow Rate FiO2 04/12/16 09:20 92 Nasal Cannula 3.00 04/12/16 08:00 96.5 76 20 89/36 Labs Laboratory Tests Test 04/11/16 15:54 White Blood Count 12.1 Red Blood Count 4.09 Hemoglobin 12.4 Hematocrit 38.3 Mean Corpuscular Volume 93.7 Mean Corpuscular Hemoglobin 30.3 Mean Corpuscular Hemoglobin 32.3 Concent Red Cell Distribution Width 14.9 Platelet Count 272 Mean Platelet Volume 8.3 Neutrophils (%) (Auto) 85.1 Lymphocytes (%) (Auto) 3.9 Monocytes (%) (Auto) 10.1 Eosinophils (%) (Auto) 0.3 Basophils (%) (Auto) 0.6 Neutrophils # (Auto) 10.3 Lymphocytes # (Auto) 0.5 Monocytes # (Auto) 1.2 Eosinophils # (Auto) 0.0 Basophils # (Auto) 0.1 CBC Comment DIFF FINAL Differential Comment Sodium Level 141 Potassium Level 4.4 Chloride Level 106 Carbon Dioxide Level 28.5 Anion Gap 7 Blood Urea Nitrogen 12 Creatinine 0.63 Estimat Glomerular Filtration 92 Rate Random Glucose 85 Lactic Acid Level 1.2 Calcium Level 8.1 Total Bilirubin 0.5 Aspartate Amino Transf 14 (AST/SGOT) Alanine Aminotransferase 12 (ALT/SGPT) Alkaline Phosphatase 166 Total Protein 5.9 Albumin 3.0 Date/Time Procedure Status Source Growth 04/10/16 21:50 Urine Culture Received Urine Catheterized Urine Pending 04/10/16 21:34 Aerobic Blood Culture - Preliminary Resulted Blood Peripheral NO GROWTH IN 2 DAYS 04/10/16 21:34 Anaerobic Blood Culture - Preliminary Resulted Blood Peripheral NO GROWTH IN 2 DAYS Abdomen: Non-distended, Non-tender, BS normal A/P Assessment and Plan PSBO/Ileus/Constipation continue medical management as surgery not indicated at this time gastrogaffin study confirms large amount of stool in colon, most likely this is the cause of her pain - laxatives prn Marcelo Johnson MD Apr 12, 2016 11:48
--- NOTE | 2016-04-12 13:02 | HHI.PR ---
Subjective Remarks Follow-up for ileus At the peak bowel movement this morning, passing gas, abdominal pain better after bowel movement, no nausea or vomiting. Afebrile. Objective Vitals Vital Signs Date Time Temp Pulse Resp B/P Pulse Ox O2 Delivery O2 Flow Rate FiO2 04/12/16 11:51 97.2 86 20 92/39 100 04/12/16 09:20 92 Nasal Cannula 3.00 04/12/16 08:00 96.5 76 20 89/36 95 04/12/16 05:07 19 04/12/16 04:00 97.2 79 17 101/44 92 04/11/16 23:36 97.3 93 18 94/47 94 04/11/16 17:00 99/60 04/11/16 15:32 97.5 79 17 87/44 96 04/11/16 13:07 97.7 47 18 111/44 99 I/O 04/11/16 04/11/16 04/11/16 04/12/16 04/12/16 04/12/16 06:59 14:59 22:59 06:59 14:59 22:59 Intake Total 1400 ml 1200 ml 866 ml Output Total 30 ml 1000 ml Balance 1370 ml 200 ml 866 ml Intake IV Total 1400 ml 1200 ml 866 ml Output Urine Total 30 ml 800 ml Stool Total 100 ml Emesis 100 ml # Voids 2 1 # Bowel Movements 1 1 1 Result Diagram: 04/11/16 1554 04/11/16 1554 Objective Remarks Not in distress, well-nourished, looks stated age PERRL, pink conjunctiva without injection, anicteric Normal rate and regular rhythm, no murmurs gallops or rubs appreciated. Clear to auscultation and symmetric bilaterally, normal respiratory effort. Abdomen soft, tender, hyperactive bowel sounds, no guarding. Extremities without clubbing, cyanosis, or edema. AAO x3, no cranial nerve deficits, moves all 4 extremities, no focal neurologic deficits Normal mood, appropriate affect A/P Problem List: (1) SIRS (systemic inflammatory response syndrome) ICD Code: R65.10 Status: Acute (2) Partial small bowel obstruction ICD Code: K56.69 Status: Acute Assessment and Plan 75-year-old female with history of osteoarthritis, colon cancer s/p partial colectomy, colostomy and reversal, prior SBO, cervical cancer, CHF, HLD, presents with a 2 day history of abdominal pain. Partial Small Bowel Obstruction: Abd/Pelvis CT images showed proximal to mid small bowel ileus with suspected obstructing adhesion; significant amount of retained stool in the colon. WBC 13.3K, lactic acid 1.2. Keep NPO. Supportive treatment with IVF, antiemetics, and pain control with IV morphine prn. IV Protonix for heartburn. Gastrografin enema personally reviewed showed a huge amount of fecal matter. Had a bowel movement today, passing gas. Advance diet to liquid diet, check another abdominal x-ray tomorrow, if tolerating diet, possible discharge tomorrow. SIRS Criteria: WBC 13.3K, HR 94, hypotensive. BP as low as 62/44. Suspect hypotension secondary to receiving pain medications and no oral intake. Lactic acid 1.2. S/p IVF boluses, continue IVF at 125 cc per per hour. Workup negative. Recheck CBC tomorrow. Hyperkalemia: Serum K 5.5, slight hemolysis noted. Resolved. CHF/HLD: chronic, hold patient's lasix and Coreg secondary to hypotension. Continue patient's statin when no longer NPO. COPD: chronic, continue patient's Symbicort bid. Duonebs prn. DVT Prophylaxis: teds/SCDs Discussed with Monie Swartz MD Apr 12, 2016 13:02
[2016-04-12] MEDS ORDERED: oxyCODONE/ACETAMINOPHEN 5 MG/325 MG TAB PO PRN (18:15)
[2016-04-12] MEDS: ONDANSETRON HCL 4 MG/2 ML VIAL IVP PRN (18:24)
[2016-04-13] VITALS (7 sets, daily range): BP systolic 94–106; BP diastolic 43–53; PULSE 74–98; RESP 14–19; TEMP 96.3–97.7; O2SAT 94–98
[2016-04-13] MEDS: RESP: ALBUTEROL 2.5 MG/IPRATROPIUM 0.5 MG NEB (PRN) NEB (01:41)
[2016-04-13] MEDS: ONDANSETRON HCL 4 MG/2 ML VIAL IVP PRN ×2 (02:09→18:29)
--- NOTE | 2016-04-13 05:19 | RADRPT ---
EXAM DATE/TIME: 04/13/2016 04:37 [facility] COMPARISON: GASTROGRAFIN ENEMA, April 11, 2016, 11:17. ABDOMEN KUB ONLY, August 06, 2012, 8:40. INDICATIONS : Abdominal pain. MEDICAL HISTORY : Carcinoma, colon. SURGICAL HISTORY : Hysterectomy. Colon resection. Colostomy. ENCOUNTER: Subsequent ACUITY: 4 - 6 days PAIN SCORE: 4/10 LOCATION: Bilateral Abdomen FINDINGS: Supine view of the abdomen was performed. Previously administered contrast is in the nondilated colon . Bowel gas pattern is nonobstructed. Levorotoscoliosis of the lumbar spine with associated degenerat aixa changes. Right hip compression screw and intramedullary bairon. CONCLUSION: 1. Contrast in the nondilated colon with some interval clearing of the colonic stool identified predo minantly transverse colon. 2. Nonobstructed bowel gas pattern with no pneumoperitoneum. Husam Catherine MD on April 13, 2016 at 5:15 Board Certified Radiologist. This report was verified electronically.
[2016-04-13 07:54] LABS: AUTOMATED NEUTROPHIL # 4.9 TH/MM3 (1.8-7.7); BASOPHIL % 0.2 % (0.0-2.0); EOSINOPHIL % 0.4 % (0.0-4.0); HEMATOCRIT 35.4 % (35.0-46.0); HEMO FLAGS DIFF FINAL; LYMPH % 5.4 % (9.0-44.0); LYMPHOCYTE # 0.4 TH/MM3 (1.0-4.8); MEAN CELL VOLUME 95.1 FL (80.0-100.0); MEAN CORPUSCULAR HEMOGLOBIN 30.8 PG (27.0-34.0); MEAN CORPUSCULAR HGB CONC 32.4 % (32.0-36.0); MONO % 20.6 % (0.0-8.0); NEUT % 73.4 % (16.0-70.0); PLATELET COUNT 204 TH/MM3 (150-450); RED BLOOD COUNT 3.73 MIL/MM3 (4.00-5.30); RED CELL DISTRIBUTION WIDTH 15.2 % (11.6-17.2); WHITE BLOOD COUNT 6.7 TH/MM3 (4.0-11.0)
[2016-04-13 08:12] LABS: BICARBONATE 22.2 MEQ/L (21.0-32.0); MAGNESIUM 1.9 MG/DL (1.5-2.5); POTASSIUM 3.9 MEQ/L (3.5-5.1)
[2016-04-13] MEDS: SODIUM CHLORIDE 0.9% FLUSH 5 ML FLUSH FLUSH SCH ×2 (08:57→20:03)
[2016-04-13] MEDS: BUDESONIDE-FORMOTEROL 80/4.5 MCG INHALER INH SCH ×2 (08:57→20:02)
[2016-04-13] MEDS: PANTOPRAZOLE SODIUM 40 MG VIAL IV PUSH SCH (12:19)
--- NOTE | 2016-04-13 12:55 | HHI.PR ---
Subjective Remarks Follow-up for ileus Abdominal pain resolved, reports bowel movement this morning, passing gas. Patient denies nausea or vomiting, SOB or chest pain. Afebrile. Objective Vitals Vital Signs Date Time Temp Pulse Resp B/P Pulse Ox O2 Delivery O2 Flow Rate FiO2 04/13/16 12:00 97.5 74 14 98/50 96 04/13/16 08:00 97.7 89 16 104/53 97 04/13/16 07:53 97 Nasal Cannula 3.00 04/13/16 04:00 96.5 98 18 103/43 98 04/13/16 00:00 96.3 88 17 102/49 97 04/12/16 20:28 98 Nasal Cannula 3.00 04/12/16 20:00 99.9 93 18 99/51 98 04/12/16 17:26 103/54 04/12/16 16:00 97.3 59 20 89/52 97 I/O 04/12/16 04/12/16 04/12/16 04/13/16 04/13/16 04/13/16 07:00 15:00 23:00 07:00 15:00 23:00 Intake Total 866 ml 1566 ml 60 ml 1941 ml Output Total 600 ml 200 ml Balance 866 ml 1566 ml 60 ml 1341 ml -200 ml Intake Oral 780 ml 60 ml IV Total 866 ml 786 ml 1941 ml Output Urine Total 200 ml Emesis 600 ml # Voids 1 2 1 # Bowel Movements 1 1 1 1 Result Diagram: 04/13/16 0633 04/13/16 0633 Imaging Last Impressions Abdomen X-Ray 04/13/16 0600 Signed Impressions: Service Date/Time: Wednesday, April 13, 2016 04:37 - CONCLUSION: 1. Contrast in the nondilated colon with some interval clearing of the colonic stool identified predominantly transverse colon. 2. Nonobstructed bowel gas pattern with no pneumoperitoneum. Husam Catherine MD Enema w/Water Soluble 04/11/16 0000 Signed Impressions: Service Date/Time: Monday, April 11, 2016 11:17 - CONCLUSION: Large amount of stool in the transverse and ascending colon without a mass appreciated. I could not reflux contrast into the terminal ileum and the cecum does not have a normal appearance but the patient has had surgery in this region. Dave Liriano MD Chest X-Ray 04/10/167 Signed Impressions: Service Date/Time: Sunday, April 10, 2016 22:08 - CONCLUSION: COPD. No evidence of acute air space disease or significant congestion. Rosendo Marquez MD Abdomen/Pelvis CT 04/10/16 0000 Signed Impressions: Service Date/Time: Sunday, April 10, 2016 22:02 - CONCLUSION: Proximal to mid small bowel ileus with suspected obstructing adhesion. Significant amount retained stool in the colon. No evidence of extra intestinal fluid collections or inflammation. Status post hysterectomy. Rosendo Marquez MD Objective Remarks Not in distress, well-nourished, looks stated age EOMI, pink conjunctiva without injection, anicteric Normal rate and regular rhythm, no murmurs gallops or rubs appreciated. diminished bilateral bases, no wheezes, rhonchi or rales noted Abdomen soft, tender, normoactive bowel sounds, no guarding. Extremities without clubbing, cyanosis, or edema. AAO x3, moves all 4 extremities, no focal neurologic deficits Normal mood, appropriate affect A/P Problem List: (1) SIRS (systemic inflammatory response syndrome) ICD Code: R65.10 Status: Acute (2) Partial small bowel obstruction ICD Code: K56.69 Status: Acute Assessment and Plan 75-year-old female with history of osteoarthritis, colon cancer s/p partial colectomy, colostomy and reversal, prior SBO, cervical cancer, CHF, HLD, presents with a 2 day history of abdominal pain. Partial Small Bowel Obstruction: Abd/Pelvis CT images showed proximal to mid small bowel ileus with suspected obstructing adhesion; significant amount of retained stool in the colon. Supportive treatment antiemetics, and pain control with PO Percocet and IV morphine prn. IV Protonix for heartburn. Gastrografin enema showed a huge amount of fecal matter. Had a bowel movement today and yesterday, passing gas. KUB this AM reviewed by myself and Dr. Atkinson reveals : Contrast in the nondilated colon with some interval clearing of the colonic stool identified predominantly transverse colon. Nonobstructing bowel gas pattern with no pneumoperitoneum. Advance diet to clear liquid diet. add pericolace 2 tabs BID and Miralax daily. General surgery saw patient and feel there is no surgical indication at this time SIRS Criteria: WBC 13.3K, HR 94, hypotensive. BP as low as 62/44. Suspect hypotension secondary to receiving pain medications and no oral intake. Lactic acid 1.2. S/p IVF boluses, DC IVF at 125 cc per per hour, patient has hx of CHF. Workup negative. Recheck CBC tomorrow. Hyperkalemia: Serum K 5.5, slight hemolysis noted. Resolved. CHF/HLD: chronic, hold patient's Coreg secondary to hypotension. Restart lasix 20 mg daily with hold parameters- patient now requiring 2-3L oxygen via NC and trace BLE. Continue patient's statin COPD: chronic, continue patient's Symbicort bid. Duonebs prn. DVT Prophylaxis: teds/SCDs Discussed with RN and Kat Araujo Apr 13, 2016 12:55
--- NOTE | 2016-04-13 16:43 | HHI.PR ---
Subjective Subjective Notes Sitting on the side of the bed with RN Wants to drink liquids Objective Vitals/I&O Vital Signs Date Time Temp Pulse Resp B/P Pulse Ox O2 Delivery O2 Flow Rate FiO2 04/13/16 12:00 97.5 74 14 98/50 96 04/13/16 07:53 Nasal Cannula 3.00 Labs Laboratory Tests Test 04/13/16 06:33 White Blood Count 6.7 Red Blood Count 3.73 Hemoglobin 11.5 Hematocrit 35.4 Mean Corpuscular Volume 95.1 Mean Corpuscular Hemoglobin 30.8 Mean Corpuscular Hemoglobin 32.4 Concent Red Cell Distribution Width 15.2 Platelet Count 204 Mean Platelet Volume 8.3 Neutrophils (%) (Auto) 73.4 Lymphocytes (%) (Auto) 5.4 Monocytes (%) (Auto) 20.6 Eosinophils (%) (Auto) 0.4 Basophils (%) (Auto) 0.2 Neutrophils # (Auto) 4.9 Lymphocytes # (Auto) 0.4 Monocytes # (Auto) 1.4 Eosinophils # (Auto) 0.0 Basophils # (Auto) 0.0 CBC Comment DIFF FINAL Differential Comment Sodium Level 140 Potassium Level 3.9 Chloride Level 107 Carbon Dioxide Level 22.2 Anion Gap 11 Blood Urea Nitrogen 6 Creatinine 0.40 Estimat Glomerular Filtration 155 Rate Random Glucose 90 Calcium Level 8.1 Magnesium Level 1.9 Date/Time Procedure Status Source Growth 04/10/16 21:50 Urine Culture - Final Complete Urine Catheterized Urine NO GROWTH IN 48 HOURS. 04/10/16 21:34 Aerobic Blood Culture - Preliminary Resulted Blood Peripheral NO GROWTH IN 3 DAYS 04/10/16 21:34 Anaerobic Blood Culture - Preliminary Resulted Blood Peripheral NO GROWTH IN 3 DAYS Cardiovascular: Regular Lungs: Clear Abdomen: Other (mildly distended; mildly tender with palpation ) Extremities: No edema A/P Assessment and Plan 75 year old female with PSBO/Ileus/Constipation -Start sips of clears this evening -+BM -Nausea resolved -continue medical management as surgery not indicated at this time Attending Statement The exam, history, and the medical decision-making described in the above note were completed with the assistance of the mid-level provider. I reviewed and agree with the findings presented. I attest that I had a [id number] encounter with the patient on the same day, and personally performed and documented my assessment and findings in the medical record. Evelyn Hill Apr 13, 2016 16:43 Clint Flaherty MD Apr 14, 2016 13:57
[2016-04-13] MEDS: DOCUSATE SODIUM 50 MG/SENNA 8.6 MG TAB PO SCH (20:04)
[2016-04-13] MEDS: ACETAMINOPHEN 325 MG TAB PO PRN (20:04)
[2016-04-13] MEDS: MORPHINE SULFATE 4 MG/ML INJ IV PRN (22:25)
[2016-04-13] MEDS ORDERED: PROMETHAZINE INJ 25 MG/ML VIAL IM PRN (23:15)
[2016-04-14] VITALS (9 sets, daily range): BP systolic 102–138; BP diastolic 50–72; PULSE 75–93; RESP 16–22; TEMP 96–97.6; O2SAT 92–98
[2016-04-14] MEDS: DOCUSATE SODIUM 50 MG/SENNA 8.6 MG TAB PO SCH ×3 (09:00→21:00)
--- NOTE | 2016-04-14 09:22 | HHI.PR ---
Subjective Remarks Patient in bed, appears ill. Says she was vomiting last night 3 bags of dark fluid. Says she also had multiple soft BMs yesterday and passed gas. No much abdominal pain. Says she feels much better today and she is hungry and would like to try sips of water. Tolerates ice chips. Less nausea. No fever or chills. No cough. Objective Vitals Vital Signs Date Time Temp Pulse Resp B/P Pulse Ox O2 Delivery O2 Flow Rate FiO2 04/14/16 08:00 96.0 79 20 113/52 97 04/14/16 04:00 97.6 85 17 102/50 97 04/14/16 00:14 95 Nasal Cannula 3.00 04/14/16 00:00 96.0 75 18 102/58 95 04/13/16 23:25 18 04/13/16 21:04 20 04/13/16 20:00 96.6 89 19 106/46 94 04/13/16 16:00 96.8 94 16 94/51 94 04/13/16 12:00 97.5 74 14 98/50 96 I/O 04/13/16 04/13/16 04/13/16 04/14/16 04/14/16 04/14/16 07:00 15:00 23:00 07:00 15:00 23:00 Intake Total 1941 ml 0 ml Output Total 600 ml 350 ml 200 ml Balance 1341 ml -350 ml -200 ml Intake Oral 0 ml IV Total 1941 ml Output Urine Total 350 ml 200 ml Emesis 600 ml # Voids 1 1 1 # Bowel Movements 1 2 1 1 Result Diagram: 04/13/16 0633 04/13/16 0633 Imaging Last Impressions Abdomen X-Ray 04/13/16 0600 Signed Impressions: Service Date/Time: Wednesday, April 13, 2016 04:37 - CONCLUSION: 1. Contrast in the nondilated colon with some interval clearing of the colonic stool identified predominantly transverse colon. 2. Nonobstructed bowel gas pattern with no pneumoperitoneum. Husam Catherine MD Enema w/Water Soluble 04/11/16 0000 Signed Impressions: Service Date/Time: Monday, April 11, 2016 11:17 - CONCLUSION: Large amount of stool in the transverse and ascending colon without a mass appreciated. I could not reflux contrast into the terminal ileum and the cecum does not have a normal appearance but the patient has had surgery in this region. Dave Liriano MD Chest X-Ray 04/10/162116 Signed Impressions: Service Date/Time: Sunday, April 10, 2016 22:08 - CONCLUSION: COPD. No evidence of acute air space disease or significant congestion. Rosendo Marquez MD Abdomen/Pelvis CT 04/10/16 0000 Signed Impressions: Service Date/Time: Sunday, April 10, 2016 22:02 - CONCLUSION: Proximal to mid small bowel ileus with suspected obstructing adhesion. Significant amount retained stool in the colon. No evidence of extra intestinal fluid collections or inflammation. Status post hysterectomy. Rosendo Marquez MD Objective Remarks GENERAL: 75 yo female, appears ill, well nourished, well developed patient. SKIN: Pale. Warm and dry. HEAD: Normocephalic. EYES: No scleral icterus. No injection or drainage. NECK: Supple, trachea midline. No JVD or lymphadenopathy. CARDIOVASCULAR: Regular rate and rhythm without murmurs, gallops, or rubs. RESPIRATORY: Breath sounds diminished at base. No accessory muscle use. GASTROINTESTINAL: Abdomen soft, + BS x4 Q, mild tenderness LLQ, nondistended. MUSCULOSKELETAL: No cyanosis. Trace LE edema. BACK: Nontender without obvious deformity. No CVA tenderness. A/P Problem List: (1) SIRS (systemic inflammatory response syndrome) ICD Code: R65.10 Status: Acute (2) Partial small bowel obstruction ICD Code: K56.69 Status: Acute Assessment and Plan 75-year-old female with history of osteoarthritis, colon cancer s/p partial colectomy, colostomy and reversal, prior SBO, cervical cancer, CHF, HLD, presents with a 2 day history of abdominal pain. Partial Small Bowel Obstruction: Abd/Pelvis CT images showed proximal to mid small bowel ileus with suspected obstructing adhesion; significant amount of retained stool in the colon. Supportive treatment antiemetics, and pain control with PO Percocet and IV morphine prn. IV Protonix for heartburn. Gastrografin enema showed a huge amount of fecal matter. Had a bowel movement today and yesterday, passing gas. KUB this AM reviewed by myself and Dr. Atkinson reveals : Contrast in the nondilated colon with some interval clearing of the colonic stool identified predominantly transverse colon. Nonobstructing bowel gas pattern with no pneumoperitoneum. With nausea and vomiting 3/6 at night but improving. Advance diet to clear liquid diet, add pericolace 2 tabs BID and Miralax daily. General surgery following, no surgical indication at this time. SIRS Criteria: WBC 13.3K, HR 94, hypotensive. BP as low as 62/44. Suspect hypotension secondary to receiving pain medications and no oral intake. Lactic acid 1.2. S/p IVF boluses, DC IVF at 125 cc per per hour, patient has hx of CHF. Workup negative. Monitor CBC. Hyperkalemia: Noted serum K 5.5, slight hemolysis noted. Resolved. CHF/HLD: chronic, hold patient's Coreg secondary to hypotension. Restart lasix 20 mg daily with hold parameters- patient now requiring 2-3L oxygen via NC and trace BLE. Continue patient's statin COPD: chronic, continue patient's Symbicort bid. Duonebs prn. DVT Prophylaxis: TEDs/SCDs Discussed with the patient, nurse. Discharge Planning DC when improved, tolerates diet and cleared by consultants. Riya Sutton MD Apr 14, 2016 09:22
[2016-04-14] MEDS: POLYETHYLENE GLYCOL 17 GM PKG PO SCH (09:45)
[2016-04-14] MEDS: BUDESONIDE-FORMOTEROL 80/4.5 MCG INHALER INH SCH ×2 (09:45→21:12)
[2016-04-14] MEDS: FUROSEMIDE 20 MG TAB PO SCH (09:45)
[2016-04-14] MEDS: SODIUM CHLORIDE 0.9% FLUSH 5 ML FLUSH FLUSH SCH ×2 (09:46→21:12)
--- NOTE | 2016-04-14 12:06 | HHI.PR ---
Subjective Subjective Notes Feels hungry Objective Vitals/I&O Vital Signs Date Time Temp Pulse Resp B/P Pulse Ox O2 Delivery O2 Flow Rate FiO2 04/14/16 08:30 97 Nasal Cannula 2.00 04/14/16 08:00 96.0 79 20 113/52 Labs Date/Time Procedure Status Source Growth 04/10/16 21:50 Urine Culture - Final Complete Urine Catheterized Urine NO GROWTH IN 48 HOURS. 04/10/16 21:34 Aerobic Blood Culture - Preliminary Resulted Blood Peripheral NO GROWTH IN 4 DAYS 04/10/16 21:34 Anaerobic Blood Culture - Preliminary Resulted Blood Peripheral NO GROWTH IN 4 DAYS Cardiovascular: Regular Lungs: Clear Abdomen: Other (mildly distended; no tender ) Extremities: No edema A/P Assessment and Plan 75 year old female with PSBO/Ileus/Constipation -Start sips of clears today -+BM -Nausea resolved -continue medical management as surgery not indicated at this time Attending Statement The exam, history, and the medical decision-making described in the above note were completed with the assistance of the mid-level provider. I reviewed and agree with the findings presented. I attest that I had a [id number] encounter with the patient on the same day, and personally performed and documented my assessment and findings in the medical record. Please see my note from today. Evelyn Hill Apr 14, 2016 12:06 Clint Flaherty MD Apr 14, 2016 14:45
[2016-04-14] MEDS: PANTOPRAZOLE SODIUM 40 MG VIAL IV PUSH SCH (13:30)
--- NOTE | 2016-04-14 14:06 | HHI.PR ---
Subjective Subjective Notes sitting up in chair, tolerating clears, as she is taking them more slowly than yesterday. Multiple BMs Objective Vitals/I&O Vital Signs Date Time Temp Pulse Resp B/P Pulse Ox O2 Delivery O2 Flow Rate FiO2 04/14/16 12:00 96.0 92 22 119/54 96 04/14/16 08:30 Nasal Cannula 2.00 Labs Date/Time Procedure Status Source Growth 04/10/16 21:50 Urine Culture - Final Complete Urine Catheterized Urine NO GROWTH IN 48 HOURS. 04/10/16 21:34 Aerobic Blood Culture - Preliminary Resulted Blood Peripheral NO GROWTH IN 4 DAYS 04/10/16 21:34 Anaerobic Blood Culture - Preliminary Resulted Blood Peripheral NO GROWTH IN 4 DAYS Abdomen: Other (mildly distended, non tender. ) A/P Assessment and Plan ileus vs partial SBO. Better today. Follow up abdominal xrays tomorrow. Slow advance in diet as tolerated starting tomorrow, if she continues to improve. D/W patient, she agrees with plan. Clint Flaherty MD Apr 14, 2016 14:06
[2016-04-15] VITALS: BP 100/54; PULSE 88; RESP 16; TEMP 97; O2SAT 95
[2016-04-15 04:00] VITALS: BP 102/50; PULSE 92; RESP 18; TEMP 96; O2SAT 97
--- NOTE | 2016-04-15 06:35 | RADRPT ---
EXAM DATE/TIME: 04/15/2016 06:08 [facility] COMPARISON: ABDOMEN FLAT & UPRIGHT, September 04, 2013, 7:57. INDICATIONS : Small bowel obstruction. MEDICAL HISTORY : Chronic obstructive pulmonary disease. SURGICAL HISTORY : Hysterectomy. ENCOUNTER: Subsequent ACUITY: 1 week PAIN SCORE: 0/10 LOCATION: Bilateral abdomen FINDINGS: Supine and upright views of the abdomen were performed. The abdominal bowel gas pattern is normal. No air fluid levels are seen. No abnormal masses, calcifications, or organomegaly is seen. There is some contrast identified in the descending colon. The visualized lower lungs are clear. No evidence of free intraperitoneal gas. Levoscoliosis of the lumbar spine with associated degenerative changes . Right hip medullary bairon and compression screw. CONCLUSION: Nonobstructed bowel gas pattern. No pneumoperitoneum Husam Catherine MD on April 15, 2016 at 6:32 Board Certified Radiologist. This report was verified electronically.
--- NOTE | 2016-04-15 07:23 | HHI.PR ---
Objective Vitals Vital Signs Date Time Temp Pulse Resp B/P Pulse Ox O2 Delivery O2 Flow Rate FiO2 04/15/16 04:00 96.0 92 18 102/50 97 04/15/16 00:00 97.0 88 16 100/54 95 04/14/16 20:26 98 Nasal Cannula 2.00 04/14/16 20:00 97.0 79 16 138/72 92 04/14/16 16:00 96.0 93 22 117/67 98 04/14/16 12:00 96.0 92 22 119/54 96 04/14/16 08:30 97 Nasal Cannula 2.00 04/14/16 08:00 96.0 79 20 113/52 97 I/O 04/14/16 04/14/16 04/14/16 04/15/16 04/15/16 04/15/16 07:00 15:00 23:00 07:00 15:00 23:00 Intake Total 480 ml 150 ml 300 ml Output Total 250 ml Balance 480 ml 150 ml 50 ml Intake Oral 480 ml 150 ml 300 ml Output Urine Total 250 ml # Voids 1 2 1 1 # Bowel Movements 1 3 1 2 Result Diagram: 04/13/1663204/13/16 0633 Objective Remarks GENERAL: 75 yo female, appears ill, well nourished, well developed patient. SKIN: Pale. Warm and dry. HEAD: Normocephalic. EYES: No scleral icterus. No injection or drainage. NECK: Supple, trachea midline. No JVD or lymphadenopathy. CARDIOVASCULAR: Regular rate and rhythm without murmurs, gallops, or rubs. RESPIRATORY: Breath sounds diminished at base. No accessory muscle use. GASTROINTESTINAL: Abdomen soft, + BS x4 Q, mild tenderness LLQ, nondistended. MUSCULOSKELETAL: No cyanosis. Trace LE edema. BACK: Nontender without obvious deformity. No CVA tenderness. A/P Problem List: (1) SIRS (systemic inflammatory response syndrome) ICD Code: R65.10 Status: Acute (2) Partial small bowel obstruction ICD Code: K56.69 Status: Acute Assessment and Plan 75-year-old female with history of osteoarthritis, colon cancer s/p partial colectomy, colostomy and reversal, prior SBO, cervical cancer, CHF, HLD, presents with a 2 day history of abdominal pain. Partial Small Bowel Obstruction: Abd/Pelvis CT images showed proximal to mid small bowel ileus with suspected obstructing adhesion; significant amount of retained stool in the colon. Supportive treatment antiemetics, and pain control with PO Percocet and IV morphine prn. IV Protonix for heartburn. Gastrografin enema showed a huge amount of fecal matter. Had a bowel movement today and yesterday, passing gas. KUB this AM reviewed by myself and Dr. Atkinson reveals : Contrast in the nondilated colon with some interval clearing of the colonic stool identified predominantly transverse colon. Nonobstructing bowel gas pattern with no pneumoperitoneum. With nausea and vomiting 3/6 at night but improving. Advance diet to clear liquid diet, add pericolace 2 tabs BID and Miralax daily. General surgery following, no surgical indication at this time. SIRS Criteria: WBC 13.3K, HR 94, hypotensive. BP as low as 62/44. Suspect hypotension secondary to receiving pain medications and no oral intake. Lactic acid 1.2. S/p IVF boluses, DC IVF at 125 cc per per hour, patient has hx of CHF. Workup negative. Monitor CBC. Hyperkalemia: Noted serum K 5.5, slight hemolysis noted. Resolved. CHF/HLD: chronic, hold patient's Coreg secondary to hypotension. Restart lasix 20 mg daily with hold parameters- patient now requiring 2-3L oxygen via NC and trace BLE. Continue patient's statin COPD: chronic, continue patient's Symbicort bid. Duonebs prn. DVT Prophylaxis: TEDs/SCDs Discussed with the patient, nurse. Discharge Planning DC when improved, tolerates diet and cleared by consultants. Riya Sutton MD Apr 15, 2016 07:23
[2016-04-15 07:29] LABS: AUTOMATED NEUTROPHIL # 4.5 TH/MM3 (1.8-7.7); BASOPHIL % 0.5 % (0.0-2.0); EOSINOPHIL # 0.1 TH/MM3 (0-0.4); EOSINOPHIL % 1.9 % (0.0-4.0); HEMATOCRIT 39.6 % (35.0-46.0); LYMPH % 13.4 % (9.0-44.0); LYMPHOCYTE # 0.9 TH/MM3 (1.0-4.8); MEAN CELL VOLUME 93.3 FL (80.0-100.0); MEAN CORPUSCULAR HEMOGLOBIN 30.2 PG (27.0-34.0); MEAN CORPUSCULAR HGB CONC 32.4 % (32.0-36.0); MONO % 17.8 % (0.0-8.0); NEUT % 66.4 % (16.0-70.0); PLATELET COUNT 228 TH/MM3 (150-450); RED BLOOD COUNT 4.24 MIL/MM3 (4.00-5.30); RED CELL DISTRIBUTION WIDTH 15.2 % (11.6-17.2); WHITE BLOOD COUNT 6.8 TH/MM3 (4.0-11.0)
[2016-04-15 07:32] LABS: POTASSIUM 3.4 MEQ/L (3.5-5.1)
[2016-04-15 07:35] LABS: HEMO FLAGS AUTO DIFF
--- NOTE | 2016-04-15 07:35 | HHI.PR ---
Subjective Subjective Notes tolerated fulls, having BMs denies abdominal pain. Objective Vitals/I&O Vital Signs Date Time Temp Pulse Resp B/P Pulse Ox O2 Delivery O2 Flow Rate FiO2 04/15/16 04:00 96.0 92 18 102/50 97 04/14/16 20:26 Nasal Cannula 2.00 Labs Laboratory Tests Test 04/15/16 06:35 Sodium Level 140 Potassium Level 3.4 Chloride Level 101 Carbon Dioxide Level 31.0 Anion Gap 8 Blood Urea Nitrogen 2 Creatinine 0.48 Estimat Glomerular Filtration 125 Rate Random Glucose 93 Calcium Level 8.2 Date/Time Procedure Status Source Growth 04/10/16 21:50 Urine Culture - Final Complete Urine Catheterized Urine NO GROWTH IN 48 HOURS. 04/10/16 21:34 Aerobic Blood Culture - Preliminary Resulted Blood Peripheral NO GROWTH IN 4 DAYS 04/10/16 21:34 Anaerobic Blood Culture - Preliminary Resulted Blood Peripheral NO GROWTH IN 4 DAYS Abdomen: Non-distended, Non-tender, Other, BS normal (multiple csras, no hernias.) Extremities: No edema A/P Assessment and Plan Resolved partial sbo/ ileus. Xrays this AM show benign bowel gas pattern. Pt clinically resolved. Advance diet to regular. If tolerates well, could go home and follow up with Dr Galindo as needed. Clint Flaherty MD Apr 15, 2016 07:35
[2016-04-15 08:00] VITALS: BP 111/59; PULSE 83; RESP 18; TEMP 96; O2SAT 99
[2016-04-15] MEDS: FUROSEMIDE 20 MG TAB PO SCH (08:04)
[2016-04-15] MEDS: SODIUM CHLORIDE 0.9% FLUSH 5 ML FLUSH FLUSH SCH (08:04)
[2016-04-15] MEDS: DOCUSATE SODIUM 50 MG/SENNA 8.6 MG TAB PO SCH (08:05)
[2016-04-15] MEDS: BUDESONIDE-FORMOTEROL 80/4.5 MCG INHALER INH SCH (08:05)
[2016-04-15] MEDS: POLYETHYLENE GLYCOL 17 GM PKG PO SCH (08:05)
[2016-04-15 08:23] LABS: BANDS 15 % (0-6); EOSINOPHILS 1 % (0-4); NEUTROPHIL # MANUAL DIFF 5.1 TH/MM3 (1.8-7.7); PLASMA CELLS 1 % (0-0); POLYS (SEG NEUTROPHILS) 60 % (16-70); WBC DIFF SAMPLE 100
[2016-04-15 08:24] LABS: PLATELET ESTIMATE SMEAR NORMAL (NORMAL); PLATELET MORPHOLOGY NORMAL (NORMAL); SCAN/DIFF FINAL DIFF MANUAL
--- NOTE | 2016-04-15 08:55 | HHI.PR ---
Subjective Remarks In bed. Says she did tolerate CLD yesterday. Had multiple medical problems. No n /v/d/c. Denies chest pain, n/v/d/c. Objective Vitals Vital Signs Date Time Temp Pulse Resp B/P Pulse Ox O2 Delivery O2 Flow Rate FiO2 04/15/16 04:00 96.0 92 18 102/50 97 04/15/16 00:00 97.0 88 16 100/54 95 04/14/16 20:26 98 Nasal Cannula 2.00 04/14/16 20:00 97.0 79 16 138/72 92 04/14/16 16:00 96.0 93 22 117/67 98 04/14/16 12:00 96.0 92 22 119/54 96 I/O 04/14/16 04/14/16 04/14/16 04/15/16 04/15/16 04/15/16 07:00 15:00 23:00 07:00 15:00 23:00 Intake Total 480 ml 150 ml 300 ml Output Total 250 ml Balance 480 ml 150 ml 50 ml Intake Oral 480 ml 150 ml 300 ml Output Urine Total 250 ml # Voids 1 2 1 1 # Bowel Movements 1 3 1 2 Result Diagram: 04/15/16 0635 04/15/16 0635 Imaging Last Impressions Abdomen X-Ray 04/15/16 0600 Signed Impressions: Service Date/Time: Friday, April 15, 2016 06:08 - CONCLUSION: Nonobstructed bowel gas pattern. No pneumoperitoneum Husam Catherine MD Enema w/Water Soluble 04/11/16 0000 Signed Impressions: Service Date/Time: Monday, April 11, 2016 11:17 - CONCLUSION: Large amount of stool in the transverse and ascending colon without a mass appreciated. I could not reflux contrast into the terminal ileum and the cecum does not have a normal appearance but the patient has had surgery in this region. Dave Liriano MD Chest X-Ray 04/10/162116 Signed Impressions: Service Date/Time: Sunday, April 10, 2016 22:08 - CONCLUSION: COPD. No evidence of acute air space disease or significant congestion. Rosendo Marquez MD Abdomen/Pelvis CT 04/10/16 0000 Signed Impressions: Service Date/Time: [place]brah[place], April 10, 2016 22:02 - CONCLUSION: Proximal to mid small bowel ileus with suspected obstructing adhesion. Significant amount retained stool in the colon. No evidence of extra intestinal fluid collections or inflammation. Status post hysterectomy. Rosendo Marquez MD Objective Remarks GENERAL: 75 yo female, appears ill, well nourished, well developed patient. SKIN: Pale. Warm and dry. HEAD: Normocephalic. EYES: No scleral icterus. No injection or drainage. NECK: Supple, trachea midline. No JVD or lymphadenopathy. CARDIOVASCULAR: Regular rate and rhythm without murmurs, gallops, or rubs. RESPIRATORY: Breath sounds diminished at base. No accessory muscle use. GASTROINTESTINAL: Abdomen soft, + BS x4 Q, mild tenderness LLQ, nondistended. MUSCULOSKELETAL: No cyanosis. Trace LE edema. BACK: Nontender without obvious deformity. No CVA tenderness. A/P Problem List: (1) SIRS (systemic inflammatory response syndrome) ICD Code: R65.10 Status: Acute (2) Partial small bowel obstruction ICD Code: K56.69 Status: Acute Assessment and Plan 75-year-old female with history of osteoarthritis, colon cancer s/p partial colectomy, colostomy and reversal, prior SBO, cervical cancer, CHF, HLD, presents with a 2 day history of abdominal pain. Partial Small Bowel Obstruction: Abd/Pelvis CT images showed proximal to mid small bowel ileus with suspected obstructing adhesion; significant amount of retained stool in the colon. Supportive treatment antiemetics, and pain control with PO Percocet and IV morphine prn. IV Protonix for heartburn. Gastrografin enema showed a huge amount of fecal matter. Had a bowel movement today and yesterday, passing gas. KUB this AM reviewed by myself and Dr. Atkinson reveals : Contrast in the nondilated colon with some interval clearing of the colonic stool identified predominantly transverse colon. Nonobstructing bowel gas pattern with no pneumoperitoneum. With nausea and vomiting 3/6 at night but improving. Advance diet to clear liquid diet, add pericolace 2 tabs BID and Miralax daily. General surgery following, no surgical indication at this time. 2/8 patient is improving, tolerates CLD, will advance to full liquid diet and regular diet later today if tolerates. SIRS Criteria: WBC 13.3K, HR 94, hypotensive. BP as low as 62/44. Suspect hypotension secondary to receiving pain medications and no oral intake. Lactic acid 1.2. S/p IVF boluses, DC IVF at 125 cc per per hour, patient has hx of CHF. Workup negative. Monitor CBC. Hyperkalemia: Noted serum K 5.5, slight hemolysis noted. Resolved. CHF/HLD: chronic, hold patient's Coreg secondary to hypotension. Restart lasix 20 mg daily with hold parameters- patient now requiring 2-3L oxygen via NC and trace BLE. Continue patient's statin COPD: chronic, continue patient's Symbicort bid. Duonebs prn. DVT Prophylaxis: TEDs/SCDs Discussed with the patient, nurse. Discharge Planning DC when improved, tolerates diet and cleared by consultants. Riya Sutton MD Apr 15, 2016 08:55
[2016-04-15] MEDS ORDERED: PROM25TA5 PO (08:58)
--- NOTE | 2016-04-15 08:58 | HHI.DCPOC ---
Discharge Care Plan Goals to Promote Your Health * To prevent worsening of your condition and complications * To maintain your health at the optimal level Directions to Meet Your Goals Take your medications as prescribed Follow your dietary instruction Follow activity as directed Keep your appointments as scheduled Take your immunizations and boosters as scheduled If your symptoms worsen call your PCP, if no PCP go to Urgent Care Center or Emergency Room Smoking is Dangerous to Your Health. Avoid second hand smoke Call the 24-hour hour crisis hotline for domestic abuse at Riya Sutton MD Apr 15, 2016 08:58
--- NOTE | 2016-04-15 08:59 | HHI.DS ---
Discharge Summary Admission Date Apr 10, 2016 at 23:36 Discharge Date: Apr 15, 2016 Admitting Diagnosis SBO; copd (1) SIRS (systemic inflammatory response syndrome) ICD Code: R65.10 Diagnosis: Principal (2) Partial small bowel obstruction ICD Code: K56.69 Diagnosis: Principal Procedures none Brief History - From Admission 75-year-old female with history of osteoarthritis, colon cancer s/p partial colectomy, colostomy and reversal, prior SBO, cervical cancer, CHF, presents with a 2 day history of abdominal pain. The patient reports on 04/09 around 4 PM she started to develop some mild diffuse cramping abdominal pain; she states she didn't think much of it because she had a normal, nonbloody brown formed stool earlier that day. The next day on 04/10 her abdominal pain worsened, located diffusely throughout bilateral lower quadrants, described as severe constant cramping 10/10 pains. She took a [place] around noon which initially helped alleviate the pain, however the pain returned, she took another [place] around 6 PM and this did not relieve the pain therefore she decided to come to the ER. Denies fevers/chills. She reports nausea, no vomiting. She describes severe heartburn, worse with lying flat, relieved by sitting upright on the side of the bed. The patient reports a history of SBO secondary to adhesion however had intractable nausea/vomiting at that time. She is known to Dr. Galindo. The patient has no other medical complaints at this time. CBC/BMP: 04/15/16 0635 04/15/16 0635 Significant Findings Laboratory Tests Test 04/13/16 04/15/16 06:33 06:35 Red Blood Count 3.73 MIL/MM3 (4.00-5.30) Hemoglobin 11.5 GM/DL (11.6-15.3) Neutrophils (%) (Auto) 73.4 % (16.0-70.0) Lymphocytes (%) (Auto) 5.4 % (9.0-44.0) Monocytes (%) (Auto) 20.6 % 17.8 % (0.0-8.0) (0.0-8.0) Lymphocytes # (Auto) 0.4 TH/MM3 0.9 TH/MM3 (1.0-4.8) (1.0-4.8) Monocytes # (Auto) 1.4 TH/MM3 1.2 TH/MM3 (0-0.9) (0-0.9) Blood Urea Nitrogen 6 MG/DL (7-18) 2 MG/DL (7-18) Creatinine 0.40 MG/DL 0.48 MG/DL (0.50-1.00) (0.50-1.00) Calcium Level 8.1 MG/DL 8.2 MG/DL (8.5-10.1) (8.5-10.1) Band Neutrophils % 15 % (0-6) Monocytes % 11 % (0-8) Plasma Cells 1 % (0-0) Potassium Level 3.4 MEQ/L (3.5-5.1) Imaging Last Impressions Abdomen X-Ray 04/15/16 0600 Signed Impressions: Service Date/Time: Friday, April 15, 2016 06:08 - CONCLUSION: Nonobstructed bowel gas pattern. No pneumoperitoneum Husam Catherine MD Enema w/Water Soluble 04/11/16 0000 Signed Impressions: Service Date/Time: Monday, April 11, 2016 11:17 - CONCLUSION: Large amount of stool in the transverse and ascending colon without a mass appreciated. I could not reflux contrast into the terminal ileum and the cecum does not have a normal appearance but the patient has had surgery in this region. Dave Liriano MD Chest X-Ray 04/10/162116 Signed Impressions: Service Date/Time: Sunday, April 10, 2016 22:08 - CONCLUSION: COPD. No evidence of acute air space disease or significant congestion. Rosendo Marquez MD Abdomen/Pelvis CT 04/10/16 0000 Signed Impressions: Service Date/Time: Sunday, April 10, 2016 22:02 - CONCLUSION: Proximal to mid small bowel ileus with suspected obstructing adhesion. Significant amount retained stool in the colon. No evidence of extra intestinal fluid collections or inflammation. Status post hysterectomy. Rosendo Marquez MD PE at Discharge GENERAL: 75 yo female, appears ill, well nourished, well developed patient. SKIN: Pale. Warm and dry. HEAD: Normocephalic. EYES: No scleral icterus. No injection or drainage. NECK: Supple, trachea midline. No JVD or lymphadenopathy. CARDIOVASCULAR: Regular rate and rhythm without murmurs, gallops, or rubs. RESPIRATORY: Breath sounds diminished at base. No accessory muscle use. GASTROINTESTINAL: Abdomen soft, + BS x4 Q, mild tenderness LLQ, nondistended. MUSCULOSKELETAL: No cyanosis. Trace LE edema. BACK: Nontender without obvious deformity. No CVA tenderness. Hospital Course 75-year-old female with history of osteoarthritis, colon cancer s/p partial colectomy, colostomy and reversal, prior SBO, cervical cancer, CHF, HLD, presents with a 2 day history of abdominal pain. Partial Small Bowel Obstruction: Abd/Pelvis CT images showed proximal to mid small bowel ileus with suspected obstructing adhesion; significant amount of retained stool in the colon. Supportive treatment antiemetics, and pain control with PO Percocet and IV morphine prn. IV Protonix for heartburn. Gastrografin enema showed a huge amount of fecal matter. Had a bowel movement today and yesterday, passing gas. KUB this AM reviewed by myself and Dr. Atkinson reveals : Contrast in the nondilated colon with some interval clearing of the colonic stool identified predominantly transverse colon. Nonobstructing bowel gas pattern with no pneumoperitoneum. With nausea and vomiting 3/6 at night but improving. Advance diet to clear liquid diet, add pericolace 2 tabs BID and Miralax daily. General surgery following, no surgical indication at this time. 2 patient is improving, tolerates CLD, will advance to full liquid diet and regular diet later today if tolerates. SIRS Criteria: WBC 13.3K, HR 94, hypotensive. BP as low as 62/44. Suspect hypotension secondary to receiving pain medications and no oral intake. Lactic acid 1.2. S/p IVF boluses, DC IVF at 125 cc per per hour, patient has hx of CHF. Workup negative. Monitor CBC. Hyperkalemia: Noted serum K 5.5, slight hemolysis noted. Resolved. CHF/HLD: chronic, hold patient's Coreg secondary to hypotension. Restart lasix 20 mg daily with hold parameters- patient now requiring 2-3L oxygen via NC and trace BLE. Continue patient's statin COPD: chronic, continue patient's Symbicort bid. Duonebs prn. DVT Prophylaxis: TEDs/SCDs Improved. Discharged home with home health, to follow up as OP with PCP and consultants. Pt Condition on Discharge: Stable Discharge Disposition: Disch w/ Home Health Serv Discharge Time: > 30 minutes Discharge Instructions DIET: Follow Instructions for: Heart Healthy Diet Activities you can perform: Regular-No Restrictions Follow up Referrals: PCP Follow-up - 3-5 Days SNF/FDC/HH with [facility] - 2 Weeks with Carlos Galindo MD New Medications: Promethazine (Phenergan) 25 Mg Tab 25 MG PO Q6H PRN Nausea/Vomiting #15 Ref 0 TAB Continued Medications: Alendronate (Alendronate) 70 Mg Tab 70 MG PO Q7D Osteporosis Treatment #4 Ref 0 TAB Budesonide-Formoterol Inh (Symbicort Inh) 80-4.5 Mcg/Act Aero 1 PUFF INH Q12HR Asthma Management #1 Ref 0 INHALER Carvedilol (Carvedilol) 3.125 Mg Tab 3.125 MG PO BID #60 Ref 0 TAB Furosemide (Furosemide) 20 Mg Tab 20 MG PO DAILY #30 Ref 0 TAB Hydrocodone-Acetaminophen ([place]) 7.5-325 mg Tab 1 TAB PO Q4H PRN PAIN #31 Ref 0 TAB Lovastatin (Lovastatin) 10 Mg Tab 10 MG PO DAILY Cholesterol Management #30 Ref 0 TAB Riya Sutton MD Apr 15, 2016 08:59
[2016-04-15 09:37] VITALS: O2SAT 96
--- NOTE | 2016-04-15 11:37 | HHI.FF ---
Face to Face Verification Diagnosis: (1) Lower extremity edema (2) SIRS (systemic inflammatory response syndrome) (3) Partial small bowel obstruction (4) Abdominal pain (5) History of colon cancer (6) COPD (chronic obstructive pulmonary disease) (7) Multiple drug allergies (8) H/O exploratory laparotomy Physical Therapy Order: Evaluate and Treat Home Health Nursing Order: Medical education Signs/symptoms of disease process Medication education-adverse effect Nursing assessment with vital signs I have seen patient Cailin Osorio on 04/15/16. My clinical findings support the need for the requested home health care services because: Ltd mobility - disease progression I certify that my clinical findings support that this patient is homebound because: Post-op weakness resume home health care Riya Sutton MD Apr 15, 2016 11:37
[2016-04-15 12:00] VITALS: BP 117/59; PULSE 85; RESP 20; TEMP 96.7; O2SAT 97
[2016-04-15] MEDS: PANTOPRAZOLE SODIUM 40 MG VIAL IV PUSH SCH (12:01)
== END 2016-04-15 16:49 | disposition home health service (06) | DRG 390 ==
LOC: PHED 20:29 → PHEDA 23:36 → PHEDH 04-11 03:34 → NEPHCDU 04-11 06:04 → HOCB 04-11 23:12
PROVIDERS: ADMIT Hospitalist; ATTEND Hospitalist
DX: K56.5 Intestinal adhesions [bands] with obstruction (postinfection) (principal); I95.9 Hypotension, unspecified; I50.9 Heart failure, unspecified; E87.5 Hyperkalemia; J44.9 Chronic obstructive pulmonary disease, unspecified; E78.5 Hyperlipidemia, unspecified; M19.90 Unspecified osteoarthritis, unspecified site; Z85.41 Personal history of malignant neoplasm of cervix uteri; Z85.038 Personal history of other malignant neoplasm of large intestine; Z87.891 Personal history of nicotine dependence; I10 Essential (primary) hypertension; Z92.3 Personal history of irradiation
CPT/HCPCS: 71010; 74000; 74020; 74177; 74270; 80048; 80053; 81001; 83605; 83690; 83735; 84484; 85007; 85025; 85027; 85610; 85730; 86850; 86900; 86901; 87040; 87086; 93005; 94640; 94664; 96361; 96374; 96375; C9113; J2270; J2405; J2550; J7030; J7050; Q9963; Q9967

== ENCOUNTER 2016-07-21 10:27 | Inpatient (IN) | payer OTHER, MEDICARE ==
[2016-07-21] VITALS (9 sets, daily range): BP systolic 93–101; BP diastolic 46–64; PULSE 83–100; RESP 16–20; TEMP 97.4–97.7; O2SAT 92–100
[~2016-07-21] VITALS: Ht 154.9 cm; Wt 59.0 kg
[~2016-07-21 10:27] MED LIST changes: +FURO20TA PO; +PROM25TA5 PO
[2016-07-21] MEDS ORDERED: SODIUM CHLORID 0.9% 500 ML INJ 500 ML IV ONE (11:15)
[2016-07-21] MEDS ORDERED: SODIUM CHLORIDE 0.9% FLUSH 10 ML FLUSH IV FLUSH PRN ×2 (11:15→15:15)
[2016-07-21] MEDS ORDERED: ONDANSETRON HCL 4 MG/2 ML VIAL IVP ONE (11:15)
--- NOTE | 2016-07-21 11:24 | PD ---
HPI Chief Complaint: GI Complaint Time Seen by Provider: 11:07 Travel History International Travel<30 days: No Contact w/Intl Traveler<30days: No Traveled to known affect area: No History of Present Illness HPI 75-year-old female states since Wednesday she's been having constipation, vomiting , abdominal pain. She states she has multiple prior bowel obstructions in the past. She states her last bowel movement was on Wednesday. She states that she feels like her symptoms started after she ate a hard piece of cauliflower on Wednesday. She states that she doesn't have anything left to throw up so she is been having dry heaving. She states Dr. Galindo is her surgeon. She states her last bowel obstruction was in April and originally she thought she had surgery but her states at that time they just monitored her. Quality is nonbloody. Severity is multiple episodes. She denies specific modifying factors. PFSH Past Medical History Hx Anticoagulant Therapy: No Arthritis: Yes Asthma: No Blood Disorders: No Cancer: Yes (CERVICAL, COLON) Cardiovascular Problems: Yes (CHF, HTN) High Cholesterol: Yes Chemotherapy: Yes (with colon cancer in 1995) Congestive Heart Failure: Yes COPD: Yes Coronary Artery Disease: No Diabetes: No Diminished Hearing: No Endocrine: No Gastrointestinal Disorders: Yes (hx of COLON CANCER ) GERD: Yes Genitourinary: No Hepatitis: No Hiatal Hernia: No Immune Disorder: No Implanted Vascular Access Dvce: Yes Musculoskeletal: Yes Neurologic: No Psychiatric: No Respiratory: Yes (COPD) Radiation Therapy: Yes (with colon 1995) Sleep Apnea: No Thyroid Disease: No Ulcer: No Tetanus Vaccination: Unknown ?: Not Menopausal: Yes Past Surgical History Abdominal Surgery: Yes (States had abd sx for a partial obstruction r/t colon cancer) AICD: No Appendectomy: No Arteriovenous Shunt: No Cardiac Surgery: No Cholecystectomy: No Ear Surgery: No Endocrine Surgery: No Eye Surgery: Yes (REGLA. CATARACT EXTRACT.) Genitourinary Surgery: No Gynecologic Surgery: Yes (COLON/CERVICAL CANCER WITH HYSTERECTOMY ) Hysterectomy: Yes Insulin Pump: No Joint Replacement: No Neurologic Surgery: No Oral Surgery: No Pacemaker: No Thoracic Surgery: Yes (LUMBAR LAMINECTOMY ) Other Surgery: Yes Social History Alcohol Use: No Tobacco Use: No (quit 2 years ago smoked cigs in early 's) Substance Use: No Allergies-Medications (Allergen,Severity, Reaction): Coded Allergies: Keflex (Verified Allergy, Severe, Itching, 07/21/16) Vancomycin (Verified Allergy, Severe, 07/21/16) REACTION NOT GIVEN Cephalosporins (Verified Allergy, Intermediate, 07/21/16) Itching Vicodin (Verified Allergy, Unknown, 07/21/16) Reported Meds & Prescriptions Reported Meds & Active Scripts Active Phenergan (Promethazine HCl) 25 Mg Tab 25 Mg PO Q6H PRN [place] (Hydrocodone-Acetaminophen) 7.5-325 mg Tab 1 Tab PO Q4H PRN Reported Furosemide 20 Mg Tab 20 Mg PO DAILY Lovastatin 10 Mg Tab 10 Mg PO DAILY Alendronate (Alendronate Sodium) 70 Mg Tab 70 Mg PO Q7D Carvedilol 3.125 Mg Tab 3.125 Mg PO BID Symbicort Inh (Budesonide/Formoterol Fumarate) 80-4.5 Mcg/Act Aero 1 Puff INH Q12HR Review of Systems Except as stated in HPI: all other systems reviewed are Neg Physical Exam Narrative GENERAL: Well-nourished, well-developed patient. SKIN: Warm and dry. HEAD: Normocephalic and atraumatic. EYES: No injection or drainage. ENT: No nasal drainage noted. NECK: Supple, trachea midline. CARDIOVASCULAR: Regular rate and rhythm RESPIRATORY: Breath sounds equal bilaterally. No accessory muscle use. GASTROINTESTINAL: Abdomen soft, diffusely tender, nondistended. No rebound NEUROLOGICAL: Awake and alert. Moves all extremities. Normal speech. Data Data Last Documented VS Vital Signs Date Time Temp Pulse Resp B/P Pulse Ox O2 Delivery O2 Flow Rate FiO2 07/21/16 13:40 86 18 93/53 94 Nasal Cannula 1 07/21/16 10:38 97.4 Orders Complete Blood Count With Diff (07/21/16 11:07) Comprehensive Metabolic Panel (07/21/16 11:07) Lipase (07/21/16 11:07) Prothrombin Time / Inr (Pt) (07/21/16 11:07) Act Partial Throm Time (Ptt) (07/21/16 11:07) Urinalysis - C+S If Indicated (07/21/16 11:07) Ct Abd/Pel W Iv Contrast(Rout) (07/21/16 11:07) Iv Access Insert/Monitor (07/21/16 11:07) Ecg Monitoring (07/21/16 11:07) Oximetry (07/21/16 11:07) Ondansetron Inj (Zofran Inj) (07/21/16 11:15) Sodium Chloride 0.9% Flush (Ns Flush) (07/21/16 11:15) Sodium Chlorid 0.9% 500 Ml Inj (Ns 500 M (07/21/16 11:15) Oral Contrast - Adult (07/21/16 11:10) Diatrizoate Liq ( Gastrojl Liq) (07/21/16 11:41) Chest, Single Ap (07/21/16 ) Iohexol 350 Inj (Omnipaque 350 Inj) (07/21/16 13:06) Insert Ng Tube (07/21/16 14:12) Lactic Acid (07/21/16 14:19) Lidocaine 2% Jelly (Xylocaine 2% Jelly) (07/21/16 14:30) Admit Order (Ed Use Only) (07/21/16 14:21) Labs Laboratory Tests Test 07/21/16 11:55 White Blood Count 14.6 TH/MM3 Red Blood Count 5.12 MIL/MM3 Hemoglobin 15.3 GM/DL Hematocrit 45.7 % Mean Corpuscular Volume 89.2 FL Mean Corpuscular Hemoglobin 29.8 PG Mean Corpuscular Hemoglobin 33.4 % Concent Red Cell Distribution Width 14.8 % Platelet Count 255 TH/MM3 Mean Platelet Volume 8.8 FL Neutrophils (%) (Auto) 81.2 % Lymphocytes (%) (Auto) 5.8 % Monocytes (%) (Auto) 10.4 % Eosinophils (%) (Auto) 0.2 % Basophils (%) (Auto) 2.4 % Neutrophils # (Auto) 12.0 TH/MM3 Lymphocytes # (Auto) 0.8 TH/MM3 Monocytes # (Auto) 1.5 TH/MM3 Eosinophils # (Auto) 0.0 TH/MM3 Basophils # (Auto) 0.3 TH/MM3 CBC Comment DIFF FINAL Differential Comment Prothrombin Time 9.8 SEC Prothromb Time International 0.9 RATIO Ratio Activated Partial 26.4 SEC Thromboplast Time Sodium Level 138 MEQ/L Potassium Level 5.4 MEQ/L Chloride Level 98 MEQ/L Carbon Dioxide Level 32.7 MEQ/L Anion Gap 7 MEQ/L Blood Urea Nitrogen 16 MG/DL Creatinine 0.90 MG/DL Estimat Glomerular Filtration 61 ML/MIN Rate Random Glucose 95 MG/DL Calcium Level 9.5 MG/DL Total Bilirubin 0.8 MG/DL Aspartate Amino Transf 26 U/L (AST/SGOT) Alanine Aminotransferase 19 U/L (ALT/SGPT) Alkaline Phosphatase 93 U/L Total Protein 7.5 GM/DL Albumin 3.7 GM/DL Lipase 181 U/L MDM Medical Decision Making Medical Screen Exam Complete: Yes Emergency Medical Condition: Yes Medical Record Reviewed: Yes (past history confirmed) Interpretation(s) CBC & BMP Diagram 07/21/16 11:55 Last 24 hours Impressions Chest X-Ray 07/21/16 0000 Signed Impressions: Service Date/Time: Thursday, July 21, 2016 12:18 - CONCLUSION: COPD. No evidence of acute cardiopulmonary process. Rosendo Marquez MD CT abdomen pelvis shows small bowel obstruction with multiple fluid-filled dilated loops Differential Diagnosis Obstruction, ileus, gastroenteritis, gastritis Narrative Course Will check blood work, CT scan and reevaluate Patient very anxious about and she is given very small dose of Ativan and lidocaine jelly to help facilitate and after this 500 mL of green colored output was noted. Patient is feeling better. Patient's blood pressure is still lower but she states she runs like this. We'll have her monitored closely in the ICU. Lactate is not elevated. Physician Communication Physician Communication dr muller states thru OR nurse to talk with Dr galindo and likely admit to medicine with transfer to the main dr galindo states to place consult to him and agrees need , medicine admit and [facility] admission dr jay agrees to admit Diagnosis Primary Impression: Small bowel obstruction Additional Impressions: COPD (chronic obstructive pulmonary disease) Qualified Code: J44.9 - Chronic obstructive pulmonary disease, unspecified COPD type Leukocytosis Qualified Code: D72.829 - Leukocytosis, unspecified type Admitting Information Admitting Physician Requests: Admit Vidya Quinteros MD Jul 21, 2016 11:24
[2016-07-21] MEDS ORDERED: DIATRIZOATE MEGLUM/DIATRIZOATE SOD 9 ML CUP ONE (11:41)
[2016-07-21 12:13] LABS: BASOPHIL # 0.3 TH/MM3 (0-0.2); BASOPHIL % 2.4 % (0.0-2.0); EOSINOPHIL % 0.2 % (0.0-4.0); HEMATOCRIT 45.7 % (35.0-46.0); LYMPH % 5.8 % (9.0-44.0); LYMPHOCYTE # 0.8 TH/MM3 (1.0-4.8); MEAN CELL VOLUME 89.2 FL (80.0-100.0); MEAN CORPUSCULAR HEMOGLOBIN 29.8 PG (27.0-34.0); MEAN CORPUSCULAR HGB CONC 33.4 % (32.0-36.0); MONO % 10.4 % (0.0-8.0); NEUT % 81.2 % (16.0-70.0); PLATELET COUNT 255 TH/MM3 (150-450); RED BLOOD COUNT 5.12 MIL/MM3 (4.00-5.30); RED CELL DISTRIBUTION WIDTH 14.8 % (11.6-17.2); WHITE BLOOD COUNT 14.6 TH/MM3 (4.0-11.0)
[2016-07-21 12:14] LABS: HEMO FLAGS DIFF FINAL
[2016-07-21 12:23] LABS: CHLORIDE 98 MEQ/L (98-107); SODIUM (NA) 138 MEQ/L (136-145)
[2016-07-21 12:24] LABS: POTASSIUM 5.4 MEQ/L (3.5-5.1)
[2016-07-21 12:27] LABS: ANION GAP 7 MEQ/L (5-15); APTT (PATIENT) 26.4 SEC (24.3-30.1); BICARBONATE 32.7 MEQ/L (21.0-32.0); BLOOD UREA NITROGEN 16 MG/DL (7-18); INTERNATIONAL NORMALIZED RATIO 0.9 RATIO; PROTHROMBIN TIME - PATIENT 9.8 SEC (9.8-11.6)
[2016-07-21 12:30] LABS: ALT (GPT) 19 U/L (10-53); AST (GOT) 26 U/L (15-37); GLOMERULAR FILTRATION RATE 61 ML/MIN (>89)
[2016-07-21 12:31] LABS: TOTAL BILIRUBIN ADULT 0.8 MG/DL (0.2-1.0)
[2016-07-21 12:33] LABS: ALKALINE PHOSPHATASE 93 U/L (45-117)
--- NOTE | 2016-07-21 13:03 | RADHPO ---
EXAM DATE/TIME: 07/21/2016 12:18 [facility] COMPARISON: CHEST SINGLE AP, April 10, 2016, 22:08. INDICATIONS : Chest discomfort; vomiting since Wednesday. MEDICAL HISTORY : Hypertension. Emphysema. Chronic obstructive pulmonary disease. Congestive heart failure. Colon C ancer. Cervical cancer. Athritis. SURGICAL HISTORY : Hysterectomy. Bowel resection. ENCOUNTER: Initial ACUITY: 2 days PAIN SCORE: 0/10 LOCATION: Bilateral chest FINDINGS: Lungs are hyperinflated. There is no evidence of acute air space disease or suspicious mass densities . Heart and mediastinal structures are stable. Old right-sided rib fractures are noted. CONCLUSION: COPD. No evidence of acute cardiopulmonary process. Rosendo Marquez MD on July 21, 2016 at 13:00 Board Certified Radiologist. This report was verified electronically.
[2016-07-21] MEDS ORDERED: IOHEXOL 350 MG/ML 10 ML VIAL (for RAD DIAG) IV ONE (13:06)
--- NOTE | 2016-07-21 14:09 | RADHPO ---
EXAM DATE/TIME: 07/21/2016 12:54 [facility] COMPARISON: CT ABDOMEN & PELVIS W CONTRAST, April 10, 2016, 22:02. INDICATIONS : Vomiting. IV CONTRAST: 75 cc Omnipaque 350 (iohexol) IV ORAL CONTRAST: Partial prescribed oral contrast ingested. RADIATION DOSE: 8.27 CTDIvol (mGy) MEDICAL HISTORY : Congestive heart failure. Hypertension. Chronic obstructive pulmonary disease. Cervical cancer. Colon cancer. SURGICAL HISTORY : Hysterectomy. Lumbar laminectomy. ENCOUNTER: Initial ACUITY: 3 days PAIN SCALE: 0/10 LOCATION: Abdomen TECHNIQUE: Volumetric scanning of the abdomen and pelvis was performed. Using automated exposure control and ad justment of the mA and/or kV according to patient size, radiation dose was kept as low as reasonably achievable to obtain optimal diagnostic quality images. FINDINGS: There are multiple fluid-filled dilated loops of small bowel within the left abdomen suggesting dista l jejunal or proximal ileal small bowel obstruction. Multiple loops of non-dilated distal ileum are noted. The colon is non-dilated. Previous colonic surgery has been performed with suture lines note d in the right colon and within the rectosigmoid colon. The liver, spleen, pancreas, adrenal glands and gallbladder are unremarkable. There is a 2.1 cm righ t-sided exophytic renal cyst. There is no solid mass or calcified stone within either kidney. The abdominal aorta is calcified but is not aneurysmally dilated. The inferior vena cava is normal. The abdominal wall is intact without definite hernia. The left symphysis pubis and anterior aspect of the left inferior pubic ramus is di ffusely sclerotic. Old fractures of the left superior and inferior pubic rami are noted. Degenerative changes and scoli osis of the lumbar spine are noted. The urinary bladder is unremarkable. No pelvis ascites or pelvic lymphadeno mitch is noted. CONCLUSION: 1. Multiple fluid-filled dilated loops of jejunum suggesting distal jejunal or proximal ileal small bowel obstruction. Clinical correlation is recommended. 2. Degenerative changes and scoliosis of the lumbar spine. 3. Diffuse sclerosis involving the left symphysis pubis as well as the anterior portion of the left inferior pubic ramus. 4. Stable 2.1 cm right renal cyst. Maurisio Mcleod MD on July 21, 2016 at 13:47 Board Certified Radiologist. This report was verified electronically.
[2016-07-21] MEDS ORDERED: LIDOCAINE 2% JELLY 30 ML TUBE TOPICAL ONE (14:30)
[2016-07-21] MEDS ORDERED: SENNOSIDES 8.6 MG TAB PO PRN (15:15)
[2016-07-21] MEDS ORDERED: LACTULOSE SYRUP 20 GM/30 ML CUP PO PRN (15:15)
[2016-07-21] MEDS ORDERED: NALOXONE HCL 0.4 MG/ML AMP IV PRN (15:15)
[2016-07-21] MEDS ORDERED: BISACODYL 10 MG SUPP RECTAL PRN (15:15)
[2016-07-21] MEDS ORDERED: LORazepam 2 MG/ML VIAL IV PUSH ONE (15:15)
[2016-07-21] MEDS ORDERED: MAGNESIUM HYDROXIDE SUSP 30 ML CUP PO PRN (15:15)
[2016-07-21] MEDS: DEXT 5%-NACL 0.45% 1000 ML INJ 1,000 ML IV SCH (15:58)
[2016-07-21 16:21] LABS: BLOOD, URINE TRACE (NEG); GLUCOSE,URINE NEG (NEG); KETONE, URINE 15 mg/dL (NEG); NITRITE,URINE NEG (NEG)
[2016-07-21 17:02] LABS: METHOD OF COLLECTION CLEAN CATCH; URINE COLOR YELLOW (YELLW/STRAW); WBC, URINE 0-2 /hpf (0-5)
[2016-07-21 17:03] LABS: COMMENT (UR) CULT NOT INDICATED; CULTURE IF INDICATED CULT NOT INDICATED; RBC, URINE 0-3 /hpf (0-3); SQUAMOUS EPITHELIAL CELL URINE 0-5 /hpf (0-5)
--- NOTE | 2016-07-21 17:08 | PD.CONS ---
cc: Carlos Galindo MD [facility] Service General Surgery Consult Requested By Dr. Quinteros Reason for Consult Abdominal pain Nausea Vomiting Primary Care Physician Russ Belle M.D. History of Present Illness This is a 75 year old female with a past medical history of cervical cancer, colon cancer, congestive heart failure, COPD, GERD, and arthritis. She comes to the emergency room to be evaluated due to abdominal pain with nausea and vomiting. She is well known to our service and Dr. Galindo as she has been seen in the past for for small bowel obstructions. She is on the operating room schedule for tomorrow for exploratory laparotomy, lysis of adhesion, and possible bowel resection. A General Surgery consultation has been requested for evaluation of abdominal pain with possible small bowel resection. Review of Systems Constitutional: COMPLAINS OF: Fatigue, Chills Endocrine: DENIES: Polydipsia, Polyuria, Polyphagia Eyes: DENIES: Diplopia Ears, nose, mouth, throat: DENIES: Hearing loss Respiratory: DENIES: Cough, Snoring Cardiovascular: DENIES: Chest pain Gastrointestinal: COMPLAINS OF: Abdominal pain, Nausea, Vomiting Genitourinary: DENIES: Urinary frequency Musculoskeletal: DENIES: Joint pain Integumentary: DENIES: Abnormal pigmentation Hematologic/lymphatic: DENIES: Bruising Immunologic/allergic: DENIES: Eczema Neurologic: DENIES: Abnormal gait, Headache Psychiatric: DENIES: Mood changes, Depression, Hallucinations Past Family Social History Past Medical History Arthritis Cervical cancer Colon cancer High cholesterol CHF: COPD GERD Past Surgical History Cataract surgery Hysterectomy Lumbar laminectomy Reported Medications See chart Allergies: Coded Allergies: Keflex (Verified Allergy, Severe, Itching, 07/21/16) Vancomycin (Verified Allergy, Severe, 07/21/16) REACTION NOT GIVEN Cephalosporins (Verified Allergy, Intermediate, 07/21/16) Itching Vicodin (Verified Allergy, Unknown, 07/21/16) Active Ordered Medications Current Medications Medications (Trade) Dose Ordered Sig/Mary Route Start Time Stop Time Status Last Admin (NS Flush) 2 ml UNSCH PRN IV FLUSH 07/21/16 15:15 (NS Flush) 2 ml BID IV FLUSH 07/21/16 21:00 (Zofran Inj) 4 mg Q6H PRN IVP 07/21/16 15:15 (Narcan Inj) 0.4 mg UNSCH PRN IV 07/21/16 15:15 (Holli-Colace) 1 tab BID PO 07/21/16 21:00 (Milk Of Magnesia Liq) 30 ml Q12H PRN PO 07/21/16 15:15 (Senokot) 17.2 mg Q12H PRN PO 07/21/16 15:15 (Dulcolax Supp) 10 mg DAILY PRN RECTAL 07/21/16 15:15 Lactulose 30 ml 30 ml DAILY PRN PO 07/21/16 15:15 (D5W-1/2 NS 1000 ml Inj) 1,000 ml @ 84 mls/hr [id number] IV 07/21/16 15:15 07/21/16 15:58 (Symbicort 80-4.5 Mcg Inh) 1 puff Q12HR INH 07/21/16 21:00 Family History Noncontributory Social History Tobacco use-quit 2 years ago Denies EtOH use Denies illicit drug use Physical Exam Vital Signs Vital Signs Date Time Temp Pulse Resp B/P Pulse Ox O2 Delivery O2 Flow Rate FiO2 07/21/16 15:40 90 16 93/48 96 Nasal Cannula 1 07/21/16 14:30 90 18 96/46 92 Nasal Cannula 2 07/21/16 13:40 86 18 93/53 94 Nasal Cannula 1 07/21/16 12:05 90 18 96/62 92 Nasal Cannula 1 07/21/16 11:12 20 94 Room Air 07/21/16 10:38 97.4 83 16 95/64 94 Physical Exam GENERAL: 75 year old female resting in bed in mild discomfort with NGT SKIN: Warm and dry. HEAD: Atraumatic. Normocephalic. EYES: Pupils equal and round. No scleral icterus. No injection or drainage. ENT: No nasal bleeding or discharge. Mucous membranes pink and moist. NECK: Trachea midline. CARDIOVASCULAR: Regular rate and rhythm. RESPIRATORY: No accessory muscle use. Clear to auscultation. Breath sounds equal bilaterally. GASTROINTESTINAL: Abdomen distended; mildly tender. NGT in place with green bile drainage. MUSCULOSKELETAL: Extremities without clubbing, cyanosis, or edema. No obvious deformities. NEUROLOGICAL: Awake and alert. No obvious cranial nerve deficits. Motor grossly within normal limits. Five out of 5 muscle strength in the arms and legs. Normal speech. PSYCHIATRIC: Appropriate mood and affect; insight and judgment normal. Laboratory Laboratory Tests Test 07/21/16 07/21/16 11:55 15:00 White Blood Count 14.6 Red Blood Count 5.12 Hemoglobin 15.3 Hematocrit 45.7 Mean Corpuscular Volume 89.2 Mean Corpuscular Hemoglobin 29.8 Mean Corpuscular Hemoglobin 33.4 Concent Red Cell Distribution Width 14.8 Platelet Count 255 Mean Platelet Volume 8.8 Neutrophils (%) (Auto) 81.2 Lymphocytes (%) (Auto) 5.8 Monocytes (%) (Auto) 10.4 Eosinophils (%) (Auto) 0.2 Basophils (%) (Auto) 2.4 Neutrophils # (Auto) 12.0 Lymphocytes # (Auto) 0.8 Monocytes # (Auto) 1.5 Eosinophils # (Auto) 0.0 Basophils # (Auto) 0.3 CBC Comment DIFF FINAL Differential Comment Prothrombin Time 9.8 Prothromb Time International 0.9 Ratio Activated Partial 26.4 Thromboplast Time Sodium Level 138 Potassium Level 5.4 Chloride Level 98 Carbon Dioxide Level 32.7 Anion Gap 7 Blood Urea Nitrogen 16 Creatinine 0.90 Estimat Glomerular Filtration 61 Rate Random Glucose 95 Calcium Level 9.5 Total Bilirubin 0.8 Aspartate Amino Transf 26 (AST/SGOT) Alanine Aminotransferase 19 (ALT/SGPT) Alkaline Phosphatase 93 Total Protein 7.5 Albumin 3.7 Lipase 181 Lactic Acid Level 1.3 Result Diagram: 07/21/16 1155 07/21/16 1155 Imaging Last 48 hours Impressions Abdomen/Pelvis CT 07/21/16 1107 Signed Impressions: Service Date/Time: Thursday, July 21, 2016 12:54 - CONCLUSION: 1. Multiple fluid-filled dilated loops of jejunum suggesting distal jejunal or proximal ileal small bowel obstruction. Clinical correlation is recommended. 2. Degenerative changes and scoliosis of the lumbar spine. 3. Diffuse sclerosis involving the left symphysis pubis as well as the anterior portion of the left inferior pubic ramus. 4. Stable 2.1 cm right renal cyst. Maurisio Mcleod MD Chest X-Ray 07/21/16 0000 Signed Impressions: Service Date/Time: Thursday, July 21, 2016 12:18 - CONCLUSION: COPD. No evidence of acute cardiopulmonary process. Rosendo Marquez MD Assessment and Plan Assessment and Plan 75 year old female with abdominal pain/nausea/vomiting; radiographic images reveal small bowel obstruction -NPO -NGT to LIWS -IVF -Obtain consents -Transfer patient to [facility] for surgery at 1330 tomorrow -Discussed with Dr. Galindo and Dr. Aleman -Thank you for this consult Attending Note - Dr. Galindo Patient seen and examined Last episode two months ago Abdomen distended and moderately tender Midline incision well-healed Discussed GAR with patient; she vocalizes understanding and agrees to proceed. The exam, history, and the medical decision-making described in the above note were completed with the assistance of the mid-level provider. I reviewed and agree with the findings presented. I attest that I had a [id number] encounter with the patient on the same day, and personally performed and documented my assessment and findings in the medical record. Discussed Condition With Evelyn Fisher Dr., Ms. Jul 21, 2016 17:08 Carlos Galindo MD Jul 21, 2016 22:00
[2016-07-21] MEDS ORDERED: SODIUM CHLOR 0.9% 250 ML INJ 250 ML IV ONE (17:30)
[2016-07-21] MEDS ORDERED: PILL SPLITTER OTHER PRN (17:30)
--- NOTE | 2016-07-21 17:41 | HHI.HP ---
[facility] Service [facility] Primary Care Physician Russ Belle M.D. Admission Diagnosis small bowel obstruction Diagnoses: Travel History International Travel<30 Days: No Contact w/Intl Traveler <30 Da: No Traveled to Known Affected Are: No History of Present Illness 75-year-old female with a history of colon cancer status post partial colectomy , colostomy with reversal, cervical cancer, CHF, history of small bowel obstruction, including an admission in April of this year for small bowel obstruction which resolved with NG tube. She presents with a 2 day history of nausea, nonbloody emesis, as well as generalized weakness. She went to [facility] on Wednesday, began to feel abdominal distention Wednesday night, which is accompanied by worsening colicky bilateral lower quadrant, nonradiating abdominal pain. Most recent bowel movement on Wednesday, none since. NG tube was placed in the ER, with improvement in nausea and abdominal distention. 800 mL out upon placement. Review of Systems Performed and negative except for history of present illness and past medical history. Past Family Social History Past Medical History colon cancer status post partial colectomy, colostomy and reversal Osteoarthritis Previous small bowel obstruction, including most recently in April of this year Cervical cancer CHF COPD GERD. Past Surgical History Partial colectomy, colostomy and reversal Hysterectomy Lumbar laminectomy Bilateral cataract surgery Bilateral knee arthroscopies Intramedullary nail fixation right hip intertrochanteric fracture Tonsillectomy Reported Medications Reported Meds & Active Scripts Active Phenergan (Promethazine HCl) 25 Mg Tab 25 Mg PO Q6H PRN [place] (Hydrocodone-Acetaminophen) 7.5-325 mg Tab 1 Tab PO Q4H PRN Reported Furosemide 20 Mg Tab 20 Mg PO DAILY Lovastatin 10 Mg Tab 10 Mg PO DAILY Alendronate (Alendronate Sodium) 70 Mg Tab 70 Mg PO Q7D Carvedilol 3.125 Mg Tab 3.125 Mg PO BID Symbicort Inh (Budesonide/Formoterol Fumarate) 80-4.5 Mcg/Act Aero 1 Puff INH Q12HR Allergies: Coded Allergies: Keflex (Verified Allergy, Severe, Itching, 07/21/16) Vancomycin (Verified Allergy, Severe, 07/21/16) REACTION NOT GIVEN Cephalosporins (Verified Allergy, Intermediate, 07/21/16) Itching Vicodin (Verified Allergy, Unknown, 07/21/16) Family History Mother with [place] in her 60s. Father passed way from cancer in his 60s. Social History Patient smoked one pack per day since her 20s, quit 2 years ago Denies any alcohol use or denies any illicit drug use. Lives with and adult grandchildren. Physical Exam Vital Signs Vital Signs Date Time Temp Pulse Resp B/P Pulse Ox O2 Delivery O2 Flow Rate FiO2 07/21/16 15:40 90 16 93/48 96 Nasal Cannula 1 07/21/16 14:30 90 18 96/46 92 Nasal Cannula 2 07/21/16 13:40 86 18 93/53 94 Nasal Cannula 1 07/21/16 12:05 90 18 96/62 92 Nasal Cannula 1 07/21/16 11:12 20 94 Room Air 07/21/16 10:38 97.4 83 16 95/64 94 Physical Exam GENERAL: This is a well-nourished, well-developed patient, appears uncomfortable. Alert and oriented 4. SKIN: No rashes, ecchymoses or lesions. Cool and dry. HEAD: Atraumatic. Normocephalic. No temporal or scalp tenderness. EYES: Pupils equal round and reactive. Extraocular motions intact. No scleral icterus. No injection or drainage. ENT: Nose without bleeding, purulent drainage or septal hematoma. Throat without erythema, tonsillar hypertrophy or exudate. Uvula midline. Airway patent. NECK: Trachea midline. No JVD or lymphadenopathy. Supple, nontender, no meningeal signs. CARDIOVASCULAR: Regular rate and rhythm without murmurs, gallops, or rubs. RESPIRATORY: Clear to auscultation. Breath sounds equal bilaterally. No wheezes , rales, or rhonchi. GASTROINTESTINAL: Abdomen moderate distention. Mild tenderness to palpation bilateral lower quadrants. No rebound or guarding. Hypoactive bowel sounds. MUSCULOSKELETAL: Extremities without clubbing, cyanosis, or edema. No joint tenderness, effusion, or edema noted. No calf tenderness. Negative Homans sign bilaterally. NEUROLOGICAL: Awake and alert. Cranial nerves II through XII intact. Motor and sensory grossly within normal limits. Five out of 5 muscle strength in all muscle groups. Normal speech. Laboratory Laboratory Tests Test 07/21/16 07/21/16 07/21/16 11:55 15:00 16:15 White Blood Count 14.6 Red Blood Count 5.12 Hemoglobin 15.3 Hematocrit 45.7 Mean Corpuscular Volume 89.2 Mean Corpuscular Hemoglobin 29.8 Mean Corpuscular Hemoglobin 33.4 Concent Red Cell Distribution Width 14.8 Platelet Count 255 Mean Platelet Volume 8.8 Neutrophils (%) (Auto) 81.2 Lymphocytes (%) (Auto) 5.8 Monocytes (%) (Auto) 10.4 Eosinophils (%) (Auto) 0.2 Basophils (%) (Auto) 2.4 Neutrophils # (Auto) 12.0 Lymphocytes # (Auto) 0.8 Monocytes # (Auto) 1.5 Eosinophils # (Auto) 0.0 Basophils # (Auto) 0.3 CBC Comment DIFF FINAL Differential Comment Prothrombin Time 9.8 Prothromb Time International 0.9 Ratio Activated Partial 26.4 Thromboplast Time Sodium Level 138 Potassium Level 5.4 Chloride Level 98 Carbon Dioxide Level 32.7 Anion Gap 7 Blood Urea Nitrogen 16 Creatinine 0.90 Estimat Glomerular Filtration 61 Rate Random Glucose 95 Calcium Level 9.5 Total Bilirubin 0.8 Aspartate Amino Transf 26 (AST/SGOT) Alanine Aminotransferase 19 (ALT/SGPT) Alkaline Phosphatase 93 Total Protein 7.5 Albumin 3.7 Lipase 181 Lactic Acid Level 1.3 Urine Collection Type CLEAN CATCH Urine Color YELLOW Urine Turbidity CLEAR Urine pH 5.0 Urine Specific [place] 1.005 Urine Protein TRACE Urine Glucose (UA) NEG Urine Ketones 15 Urine Occult Blood TRACE Urine Nitrite NEG Urine Bilirubin NEG Urine Leukocyte Esterase NEG Urine RBC 0-3 Urine WBC 0-2 Urine Squamous Epithelial 0-5 Cells Microscopic Urinalysis Comment CULT NOT INDICATED Urine Collection Time 16:15 Result Diagram: 07/21/16 1155 07/21/16 1155 Imaging Last Impressions Abdomen/Pelvis CT 07/21/16 1107 Signed Impressions: Service Date/Time: Thursday, July 21, 2016 12:54 - CONCLUSION: 1. Multiple fluid-filled dilated loops of jejunum suggesting distal jejunal or proximal ileal small bowel obstruction. Clinical correlation is recommended. 2. Degenerative changes and scoliosis of the lumbar spine. 3. Diffuse sclerosis involving the left symphysis pubis as well as the anterior portion of the left inferior pubic ramus. 4. Stable 2.1 cm right renal cyst. Maurisio Mcleod MD Chest X-Ray 07/21/16 0000 Signed Impressions: Service Date/Time: Thursday, July 21, 2016 12:18 - CONCLUSION: COPD. No evidence of acute cardiopulmonary process. Rosendo Marquez MD Assessment and Plan Assessment and Plan //Small bowel obstruction //Nausea and vomiting -CT abdomen personally reviewed, with dilated small bowel loops, distended stomach. -NG tube to low intermittent suction with 800 mL bilious fluid. -Antiemetics as necessary -Small bolus on admission. Maintenance IV fluids -Plan for surgery tomorrow. Appreciate surgical assistance //SIRS criteria -Tachycardia could be secondary to beta joya withdrawal. Nausea and vomiting //Hyperkalemia. Potassium 5.4. Slight hemolysis noted. Repeat labs this afternoon. //CHF. //Hyperlipidemia -Chronic low blood pressure in the hospital with systolics 80s to 90s. -Gentle IV fluids with nothing by mouth status -Hold statin while nothing by mouth. -Hold Coreg secondary to low blood pressures. Switched to metoprolol which is cardiac selective. Clamp NG tube 45 minutes after administrations. -Continue to monitor fluid status closely. //COPD. -Duo nebs when necessary. Continue Symbicort. Oxygen as necessary Incentive spirometry and Acapella. //Prophylaxis. SCDs. Anticoagulation As per surgical service Code Status DO NOT RESUSCITATE. Discussed Condition With Patient, nurse, ED physician. Physician Certification 2 Midnight Certification Type: Admission for Inpatient Services Order for Inpatient Services The services are ordered in accordance with Medicare regulations or non- Medicare payer requirements, as applicable. In the case of services not specified as inpatient-only, they are appropriately provided as inpatient services in accordance with the 2-midnight benchmark. Estimated LOS (days): 4 days is the estimated time the patient will need to remain in the hospital, assuming treatment plan goals are met and no additional complications. Post-Hospital Plan: Not yet determined Douglas Aleman MD Jul 21, 2016 17:41
[2016-07-21] MEDS: ONDANSETRON HCL 4 MG/2 ML VIAL IVP PRN (20:30)
[2016-07-21] MEDS: SODIUM CHLORIDE 0.9% FLUSH 10 ML FLUSH IV FLUSH SCH (20:59)
[2016-07-21] MEDS: DOCUSATE SODIUM 50 MG/SENNA 8.6 MG TAB PO SCH (20:59)
[2016-07-21] MEDS: BUDESONIDE-FORMOTEROL 80/4.5 MCG INHALER INH SCH (21:00)
[2016-07-21] MEDS ORDERED: METOPROLOL TARTRATE 25 MG TAB PO SCH (21:00)
[2016-07-21] MEDS ORDERED: PHENOL 1.4% SOLN 180 ML BTL OROPHARYNG PRN (22:00)
[2016-07-21 22:01] LABS: BICARBONATE 27.2 MEQ/L (21.0-32.0); POTASSIUM 4.2 MEQ/L (3.5-5.1)
[2016-07-21] MEDS: MORPHINE SULFATE 4 MG/ML INJ IV PUSH PRN (23:09)
[2016-07-22] VITALS (8 sets, daily range): BP systolic 91–131; BP diastolic 47–60; PULSE 82–100; RESP 15–24; TEMP 97.3–99.1; O2SAT 94–99
[2016-07-22] MEDS: diphenhydrAMINE HCL 50 MG/ML VIAL IV PUSH PRN ×2 (00:44→21:11)
[2016-07-22] MEDS: DEXT 5%-NACL 0.45% 1000 ML INJ 1,000 ML IV SCH (01:43)
[2016-07-22] MEDS: ONDANSETRON HCL 4 MG/2 ML VIAL IVP PRN ×2 (01:53→19:59)
[2016-07-22] MEDS: RESP: ALBUTEROL 2.5 MG/IPRATROPIUM 0.5 MG NEB (PRN) NEB (01:58)
[2016-07-22] MEDS: MORPHINE SULFATE 4 MG/ML INJ IV PUSH PRN ×4 (04:33→19:58)
[2016-07-22 05:10] LABS: HEMATOCRIT 39.1 % (35.0-46.0); MEAN CELL VOLUME 91.5 FL (80.0-100.0); MEAN CORPUSCULAR HEMOGLOBIN 29.1 PG (27.0-34.0); MEAN CORPUSCULAR HGB CONC 31.8 % (32.0-36.0); PLATELET COUNT 159 TH/MM3 (150-450); RED BLOOD COUNT 4.28 MIL/MM3 (4.00-5.30); RED CELL DISTRIBUTION WIDTH 15.1 % (11.6-17.2); REVIEW FLAG FINAL; WHITE BLOOD COUNT 9.3 TH/MM3 (4.0-11.0)
[2016-07-22 05:24] LABS: ANION GAP 10 MEQ/L (5-15); BICARBONATE 28.5 MEQ/L (21.0-32.0); BLOOD UREA NITROGEN 12 MG/DL (7-18); CHLORIDE 98 MEQ/L (98-107); SODIUM (NA) 136 MEQ/L (136-145)
[2016-07-22 05:31] LABS: ALKALINE PHOSPHATASE 67 U/L (45-117); ALT (GPT) 13 U/L (10-53); TOTAL BILIRUBIN ADULT 0.4 MG/DL (0.2-1.0)
[2016-07-22 05:41] LABS: AST (GOT) 16 U/L (15-37); GLOMERULAR FILTRATION RATE 125 ML/MIN (>89)
[2016-07-22] MEDS: SODIUM CHLORIDE 0.9% FLUSH 10 ML FLUSH IV FLUSH SCH ×2 (08:15→19:21)
[2016-07-22] MEDS: DOCUSATE SODIUM 50 MG/SENNA 8.6 MG TAB PO SCH (09:00)
--- NOTE | 2016-07-22 09:21 | HHI.PR ---
Subjective Remarks Follow-up for small bowel obstruction Patient stated that abdominal pain has improved the pain medication. She denies any nausea vomiting or pain at the moment. Patient is scheduled for surgery today at 13:30. She denies any other complaints. She remains afebrile. Objective Vitals Vital Signs Date Time Temp Pulse Resp B/P Pulse Ox O2 Delivery O2 Flow Rate FiO2 07/22/16 04:55 16 07/22/16 04:00 99.1 82 24 100/47 98 07/22/16 02:02 99 Simple Mask 7.00 07/22/16 01:43 96 Simple Mask 8.00 07/22/16 00:00 98.7 86 15 91/60 97 07/21/16 20:00 97.7 100 18 101/50 100 07/21/16 20:00 98 Nasal Cannula 3.00 07/21/16 18:35 90 16 95/52 94 Nasal Cannula 2 07/21/16 15:40 90 16 93/48 96 Nasal Cannula 1 07/21/16 14:30 90 18 96/46 92 Nasal Cannula 2 07/21/16 13:40 86 18 93/53 94 Nasal Cannula 1 07/21/16 12:05 90 18 96/62 92 Nasal Cannula 1 07/21/16 11:12 20 94 Room Air 07/21/16 10:38 97.4 83 16 95/64 94 I/O 07/21/16 07/21/16 07/21/16 07/22/16 07/22/16 07/22/16 07:00 15:00 23:00 07:00 15:00 23:00 Intake Total 666 ml 749 ml Output Total 1200 ml 200 ml Balance -534 ml 549 ml Intake IV Total 666 ml 749 ml Output Urine Total 200 ml 150 ml Gastric Drainage Total 1000 ml 50 ml Result Diagram: 07/22/16 04307/22/16 0430 Objective Remarks GENERAL: in NAD NG in placed CARDIOVASCULAR: Regular rate and rhythm without murmurs, gallops, or rubs. RESPIRATORY: Breath sounds equal bilaterally. No accessory muscle use. GASTROINTESTINAL: Abdomen soft, non-tender, nondistended. MUSCULOSKELETAL: No cyanosis, or edema. BACK: Nontender without obvious deformity. No CVA tenderness. Medications and IVs Current Medications Ondansetron HCl (Zofran Inj) 4 mg ONCE ONCE IVP Last administered on 11:58; Start 07/21/16 at 11:15; Stop 07/21/16 at 11:16; Status DC Sodium Chloride 2 ml 2 ml UNSCH PRN IV FLUSH FLUSH AFTER USING IV ACCESS Last administered on 07/21/16 15:13; Start 07/21/16 at 11:15; Stop 07/21/16 at 15:23 ; Status DC Sodium Chloride (NS 500 ml Inj) 500 ml @ 500 mls/hr BOLUS ONCE IV Last administered on 07/21/16 11:58; Start 07/21/16 at 11:15; Stop 07/21/16 at 12:14 ; Status DC Diatrizoate Meglum/ Diatrizoate Sod ( Gastroview Liq) 18 ml STK-MED ONCE .ROUTE Last administered on 07/21/16 12:01; Start 07/21/16 at 11:41; Stop at 11:42; Status DC Iohexol (Omnipaque 350 Inj) 75 ml STK-MED ONCE IV Last administered on 13:06; Start 07/21/16 at 13:06; Stop 07/21/16 at 13:07; Status DC Lidocaine HCl (Xylocaine 2% Jelly) 1 applic ONCE ONCE TOPICAL Last administered on 07/21/16 15:13; Start 07/21/16 at 14:30; Stop 07/21/16 at 14:31 ; Status DC Lorazepam (Ativan Inj) 0.25 mg ONCE ONCE IV PUSH Last administered on 15:13; Start 07/21/16 at 15:15; Stop 07/21/16 at 15:16; Status DC Sodium Chloride (NS Flush) 2 ml UNSCH PRN IV FLUSH FLUSH AFTER USING IV ACCESS ; Start 07/21/16 at 15:15 Sodium Chloride (NS Flush) 2 ml BID IV FLUSH Last administered on 07/22/16 08: 15; Start 07/21/16 at 21:00 Ondansetron HCl (Zofran Inj) 4 mg Q6H PRN IVP NAUSEA OR VOMITING Last administered on 07/22/16 01:53; Start 07/21/16 at 15:15 Naloxone HCl (Narcan Inj) 0.4 mg UNSCH PRN IV SEE LABEL COMMENTS; Start at 15:15 Senna/Docusate Sodium (Holli-Colace) 1 tab BID PO ; Start 07/21/16 at 21:00 Magnesium Hydroxide (Milk Of Magnsiria Liq) 30 ml Q12H PRN PO MILD - MODERATE CONSTIPATION; Start 07/21/16 at 15:15 Sennosides (Senokot) 17.2 mg Q12H PRN PO MODERATE - SEVERE CONSTIPATION; Start 07/21/16 at 15:15 Bisacodyl (Dulcolax Supp) 10 mg DAILY PRN RECTAL SEVERE CONSITIPATION; Start at 15:15 Lactulose 30 ml 30 ml DAILY PRN PO SEVERE CONSITIPATION; Start 07/21/16 at 15: 15 Dextrose/Sodium Chloride (D5W-1/2 NS 1000 ml Inj) 1,000 ml @ 125 mls/hr Q8H IV Last administered on 07/22/16 01:43; Start 07/21/16 at 15:15 Budesonide/ Formoterol Fumarate (Symbicort 80-4.5 Mcg Inh) 1 puff Q12HR INH ; Start 07/21/16 at 21:00 Albuterol/ Ipratropium (Duoneb Neb) 1 ampule Q4HR NEB PRN NEB SOB/WHEEZING Last administered on 07/22/16 01:58; Start 07/21/16 at 17:30 Metoprolol Tartrate 12.5 mg 12.5 mg Q12HR PO ; Start 07/21/16 at 21:00 Sodium Chloride (NS 250 ml Inj) 250 ml @ 250 mls/hr BOLUS ONCE IV Last administered on 07/21/16 18:30; Start 07/21/16 at 17:30; Stop 07/21/16 at 18:29 ; Status DC Miscellaneous (Pill Splitter) 1 ea UNSCH PRN OTHER SEE LABEL COMMENTS; Start at 17:30 Phenol (Chloraseptic [place]) 2 spray Q2H PRN OROPHARYNG sore throat; Start 07/21 at 22:00 Morphine Sulfate (Morphine Inj) 2 mg Q3H PRN IV PUSH PAIN Last administered on 07/22/16 08:15; Start 07/21/16 at 22:00 Diphenhydramine HCl (Benadryl Inj) 25 mg Q6H PRN IV PUSH itching/rash Last administered on 07/22/16t 00:44; Start 07/21/16 at 22:00 A/P Assessment and Plan //Small bowel obstruction //Nausea and vomiting -CT abdomen showed dilated small bowel loops, distended stomach. -NG tube to low intermittent suction with 800 mL bilious fluid. -Antiemetics as necessary -Patient is scheduled for surgery today. //SIRS criteria -Tachycardia could be secondary to beta joya withdrawal. Nausea and vomiting -Improved with treatment. //Hyperkalemia. Potassium 5.4. Slight hemolysis noted. Repeat showed resolution. //CHF. //Hyperlipidemia -Chronic low blood pressure in the hospital with systolics 80s to 90s. -Gentle IV fluids with nothing by mouth status -Hold statin while nothing by mouth. -Hold Coreg secondary to low blood pressures. Switched to metoprolol which is cardiac selective. Clamp NG tube 45 minutes after administrations. -Continue to monitor fluid status closely. -Blood pressure continued to remain stable with mild improvement with IV fluids. //COPD. -Duo nebs when necessary. Continue Symbicort. Oxygen as necessary Incentive spirometry and Acapella. //Prophylaxis. SCDs. Anticoagulation As per surgical service Discharge Planning Patient is scheduled for surgery today. Génesis Montelongo MD Jul 22, 2016 09:20
[2016-07-22] MEDS ORDERED: NEOSTIGMINE 3 MG/3 ML SYR IV ONE (12:00)
[2016-07-22] MEDS ORDERED: ONDANSETRON HCL 4 MG/2 ML VIAL IV PUSH ONE (12:00)
[2016-07-22] MEDS ORDERED: NORMOSOL R INJ 1,000 ML IV ONE ×2 (12:00)
[2016-07-22] MEDS ORDERED: PHENYLEPH/NS 1000 MCG/10 ML SYR IV ONE (12:00)
[2016-07-22] MEDS ORDERED: PROPOFOL 200 MG/20 ML AMP IV ONE (12:00)
[2016-07-22] MEDS ORDERED: LACTATED RINGER'S 1000 ML INJ 1,000 ML IV ONE (12:00)
[2016-07-22] MEDS ORDERED: ePHEDrine/NS 25 MG/5 ML SYR IV ONE (12:00)
[2016-07-22] MEDS ORDERED: GENTAMICIN SULFATE 80 MG/2 ML VIAL ONE (13:11)
[2016-07-22] MEDS ORDERED: metroNIDAZOLE 500 MG INJ 100 ML IV ONE (13:31)
[2016-07-22] MEDS ORDERED: CIPROFLOXACIN 400 MG PREMIX 200 ML ONE (13:31)
[2016-07-22] MEDS ORDERED: FAMOTIDINE 20 MG/2 ML VIAL ONE (13:32)
[2016-07-22] MEDS ORDERED: MIDAZOLAM HCL 2 MG/2 ML VIAL ONE (13:33)
[2016-07-22] MEDS ORDERED: FAMOTIDINE 20 MG/2 ML VIAL IV PUSH ONE (13:36)
[2016-07-22] MEDS ORDERED: MIDAZOLAM HCL 2 MG/2 ML VIAL IV PUSH ONE (13:36)
--- NOTE | 2016-07-22 14:32 | EKG ---
Date Performed: 07/22/2016 Time Performed: 04:42:24 PTAGE: 75 years EKG: Sinus rhythm with PAC(s) Anterolateral T wave changes are nonspecific Low QRS voltages in precordial leads Border line ECG NO SIGNIFICANT CHANGE FROM PRIOR ELECTROCARDIOGRAM. PREVIOUS TRACING : 04/10/2016 21.37 DOCTOR: Raf Camp Interpretating Date/Time 07/22/2016 14:31:05
[2016-07-22] MEDS ORDERED: SUGAMMADEX SODIUM 200 MG/2 ML VIAL IV PUSH ONE ×2 (17:15)
--- NOTE | 2016-07-22 17:29 | HHI.PR ---
cc: Carlos Galindo MD Immediate Post Op Note Procedure Date: Jul 22, 2016 Pre Op Diagnosis: Small bowel obstruction, recurrent Post Op Diagnosis: Same Surgeon: Carlos Galindo Financial Services Specialist(s): Clarita Kat CFA Procedure: Exploratory Laparotomy Lysis adhesions > 1 hr Small bowel resection with primary anastomosis Findings: Small bowel obstruction secondary to adhesions with stricture Complications: None Specimen(s) removed: Distal jejunum to pathology Estimated blood loss: 200 ml Anesthesia: General Drains: None IVF (3800 ml) Patient to: PACU Patient Condition: Good Date/Time of Procedure: SEE SURGICAL CARE RECORD Carlos Galindo MD Jul 22, 2016 17:29
[2016-07-22] MEDS ORDERED: NEOSTIGMINE METHYLSULFATE 10 MG/10 ML VIAL ONE (17:59)
[2016-07-22] MEDS ORDERED: GLYCOPYRROLATE 0.2 MG/ML VIAL ONE (17:59)
[2016-07-22] MEDS: PANTOPRAZOLE SODIUM 40 MG VIAL IV PUSH SCH (18:00)
[2016-07-22] MEDS ORDERED: DO NOT ADM ANY ANTICOAGULANT DRUGS PRN (18:05)
[2016-07-22] MEDS ORDERED: *morphine SULFATE 8 MG/ML PERIprocedure ONLY ONE (18:10)
[2016-07-22 18:29] LABS: AUTOMATED NEUTROPHIL # 7.6 TH/MM3 (1.8-7.7); BASOPHIL % 0.3 % (0.0-2.0); EOSINOPHIL % 0.3 % (0.0-4.0); HEMATOCRIT 37.7 % (35.0-46.0); HEMO FLAGS DIFF FINAL; LYMPH % 9.9 % (9.0-44.0); LYMPHOCYTE # 0.9 TH/MM3 (1.0-4.8); MEAN CELL VOLUME 92.6 FL (80.0-100.0); MEAN CORPUSCULAR HEMOGLOBIN 28.9 PG (27.0-34.0); MEAN CORPUSCULAR HGB CONC 31.2 % (32.0-36.0); MONO % 9.4 % (0.0-8.0); NEUT % 80.1 % (16.0-70.0); PLATELET COUNT 181 TH/MM3 (150-450); RED BLOOD COUNT 4.08 MIL/MM3 (4.00-5.30); RED CELL DISTRIBUTION WIDTH 15.3 % (11.6-17.2); WHITE BLOOD COUNT 9.5 TH/MM3 (4.0-11.0)
--- NOTE | 2016-07-22 18:34 | RADRPT ---
EXAM DATE/TIME: 07/22/2016 17:58 [facility] COMPARISON: No previous studies available for comparison. INDICATIONS : Evaluate for central line placement. MEDICAL HISTORY : Hypertension. Emphysema. Chronic obstructive pulmonary disease. SURGICAL HISTORY : Hysterectomy. Bowel resection. ENCOUNTER: Subsequent ACUITY: 1 day PAIN SCORE: 0/10 LOCATION: chest FINDINGS: There is a new right internal jugular central venous catheter with tip in the superior vena cava. No pneumothorax. Nasogastric tube courses into the stomach. Mild patchy atelectasis seen in both bases. CONCLUSION: Interim right IJ central venous catheter and nasogastric tube placement. No pneumothorax or other acu te complication demonstrated. Dave Chappell MD on July 22, 2016 at 18:31 Board Certified Radiologist. This report was verified electronically.
[2016-07-22 19:01] LABS: BICARBONATE 29.8 MEQ/L (21.0-32.0); POTASSIUM 3.8 MEQ/L (3.5-5.1)
[2016-07-22] MEDS ORDERED: fentaNYL CITRATE 250 MCG/5 ML AMP ONE (19:05)
[2016-07-22 19:38] LABS: CALCIUM-PROTEIN CORRECTED 8.9 MG/DL (8.5-10.1)
[2016-07-22] MEDS: BUDESONIDE-FORMOTEROL 80/4.5 MCG INHALER INH SCH (20:11)
[2016-07-22] MEDS ORDERED: MORPHINE SULFATE 4 MG/ML INJ IV PUSH ONE (22:30)
[2016-07-23] VITALS (9 sets, daily range): BP systolic 102–115; BP diastolic 49–56; PULSE 90–98; RESP 15–26; TEMP 96.8–97.9; O2SAT 93–100
[2016-07-23] MEDS: MORPHINE SULFATE 4 MG/ML INJ IV PUSH PRN ×3 (01:41→11:33)
[2016-07-23] MEDS: DEXT 5%-NACL 0.45% 1000 ML INJ 1,000 ML IV SCH ×3 (01:43→17:26)
[2016-07-23] MEDS: RESP: ALBUTEROL 2.5 MG/IPRATROPIUM 0.5 MG NEB (PRN) NEB (02:26)
[2016-07-23 03:36] LABS: AUTOMATED NEUTROPHIL # 9.8 TH/MM3 (1.8-7.7); BASOPHIL % 0.1 % (0.0-2.0); HEMO FLAGS DIFF FINAL; LYMPH % 2.7 % (9.0-44.0); LYMPHOCYTE # 0.3 TH/MM3 (1.0-4.8); MEAN CELL VOLUME 90.8 FL (80.0-100.0); MEAN CORPUSCULAR HEMOGLOBIN 29.6 PG (27.0-34.0); MEAN CORPUSCULAR HGB CONC 32.6 % (32.0-36.0); MONO % 9.2 % (0.0-8.0); PLATELET COUNT 172 TH/MM3 (150-450); RED BLOOD COUNT 4.29 MIL/MM3 (4.00-5.30); RED CELL DISTRIBUTION WIDTH 15.1 % (11.6-17.2); WHITE BLOOD COUNT 11.1 TH/MM3 (4.0-11.0)
[2016-07-23] MEDS ORDERED: MORPHINE SULFATE 4 MG/ML INJ IV PUSH ONE (04:00)
[2016-07-23 04:30] LABS: BICARBONATE 31.5 MEQ/L (21.0-32.0); POTASSIUM 4.2 MEQ/L (3.5-5.1)
[2016-07-23 04:42] LABS: CALCIUM-PROTEIN CORRECTED 8.2 MG/DL (8.5-10.1)
[2016-07-23] MEDS: SODIUM CHLORIDE 0.9% FLUSH 10 ML FLUSH IV FLUSH SCH ×2 (08:51→22:49)
[2016-07-23] MEDS: BUDESONIDE-FORMOTEROL 80/4.5 MCG INHALER INH SCH ×2 (08:53→21:00)
--- NOTE | 2016-07-23 09:46 | HHI.PR ---
Subjective Remarks Follow-up for exploratory laparotomy Patient stated that nausea, vomiting has improved. Abdominal pain improved with pain medication. She has no complaints. She remains afebrile. Her nurse is at the bedside she also has no complaints. Objective Vitals Vital Signs Date Time Temp Pulse Resp B/P Pulse Ox O2 Delivery O2 Flow Rate FiO2 07/23/16 09:04 97 Nasal Cannula 4.00 07/23/16 07:00 93 Nasal Cannula 3.00 07/23/16 04:00 97.6 94 18 109/53 100 07/23/16 02:26 93 Nasal Cannula 5.00 07/23/16 00:00 97.9 98 26 102/49 100 07/22/16 20:00 100 07/22/16 20:00 97.9 100 24 131/60 94 07/22/16 19:00 91 Nasal Cannula 4.00 07/22/16 18:30 89 22 122/86 98 Nasal Cannula 4 07/22/16 18:15 85 18 106/49 97 Nasal Cannula 4 07/22/16 18:00 102 22 117/55 98 Nasal Cannula 4 07/22/16 18:00 97.3 93 16 123/55 94 07/22/16 17:57 98.7 102 22 146/86 100 Nasal Cannula 4 07/22/16 12:45 Nasal Cannula 2 07/22/16 12:00 98.3 88 21 96/49 95 I/O 07/22/16 07/22/16 07/22/16 07/23/16 07/23/16 07/23/16 07:00 15:00 23:00 07:00 15:00 23:00 Intake Total 749 ml 866 ml 4739 ml 762 ml Output Total 200 ml 400 ml 975 ml 225 ml Balance 549 ml 466 ml 3764 ml 537 ml Intake Oral 0 ml IV Total 749 ml 866 ml 939 ml 762 ml Other 3800 ml Output Urine Total 150 ml 400 ml 275 ml 225 ml Gastric Drainage Total 50 ml 0 ml Estimated Blood Loss 200 ml Other 500 ml # Bowel Movements 0 Result Diagram: 07/23/167 07/23/16326 Objective Remarks GENERAL: in NAD NG in placed CARDIOVASCULAR: Regular rate and rhythm without murmurs, gallops, or rubs. RESPIRATORY: Breath sounds equal bilaterally. No accessory muscle use. GASTROINTESTINAL: Abdomen soft, positive tenderness palpation at the incision line, nondistended. Incision dry clean and intact. MUSCULOSKELETAL: No cyanosis, or edema. BACK: Nontender without obvious deformity. No CVA tenderness. Medications and IVs Current Medications Ondansetron HCl (Zofran Inj) 4 mg ONCE ONCE IVP Last administered on 11:58; Start 07/21/16 at 11:15; Stop 07/21/16 at 11:16; Status DC Sodium Chloride 2 ml 2 ml UNSCH PRN IV FLUSH FLUSH AFTER USING IV ACCESS Last administered on 07/21/16 15:13; Start 07/21/16 at 11:15; Stop 07/21/16 at 15:23 ; Status DC Sodium Chloride (NS 500 ml Inj) 500 ml @ 500 mls/hr BOLUS ONCE IV Last administered on 07/21/16 11:58; Start 07/21/16 at 11:15; Stop 07/21/16 at 12:14 ; Status DC Diatrizoate Meglum/ Diatrizoate Sod ( Gastroview Liq) 18 ml STK-MED ONCE .ROUTE Last administered on 07/21/16 12:01; Start 07/21/16 at 11:41; Stop at 11:42; Status DC Iohexol (Omnipaque 350 Inj) 75 ml STK-MED ONCE IV Last administered on 13:06; Start 07/21/16 at 13:06; Stop 07/21/16 at 13:07; Status DC Lidocaine HCl (Xylocaine 2% Jelly) 1 applic ONCE ONCE TOPICAL Last administered on 07/21/16 15:13; Start 07/21/16 at 14:30; Stop 07/21/16 at 14:31 ; Status DC Lorazepam (Ativan Inj) 0.25 mg ONCE ONCE IV PUSH Last administered on 15:13; Start 07/21/16 at 15:15; Stop 07/21/16 at 15:16; Status DC Sodium Chloride (NS Flush) 2 ml UNSCH PRN IV FLUSH FLUSH AFTER USING IV ACCESS ; Start 07/21/16 at 15:15 Sodium Chloride (NS Flush) 2 ml BID IV FLUSH Last administered on 07/23/16 08: 51; Start 07/21/16 at 21:00 Ondansetron HCl (Zofran Inj) 4 mg Q6H PRN IVP NAUSEA OR VOMITING Last administered on 07/22/16 19:59; Start 07/21/16 at 15:15 Naloxone HCl (Narcan Inj) 0.4 mg UNSCH PRN IV SEE LABEL COMMENTS; Start at 15:15 Senna/Docusate Sodium (Holli-Colace) 1 tab BID PO ; Start 07/21/16 at 21:00; Status Hold Magnesium Hydroxide (Milk Of Magnesia Liq) 30 ml Q12H PRN PO MILD - MODERATE CONSTIPATION; Start 07/21/16 at 15:15; Status Hold Sennosides (Senokot) 17.2 mg Q12H PRN PO MODERATE - SEVERE CONSTIPATION; Start 07/21/16 at 15:15; Status Hold Bisacodyl (Dulcolax Supp) 10 mg DAILY PRN RECTAL SEVERE CONSITIPATION; Start at 15:15 Lactulose 30 ml 30 ml DAILY PRN PO SEVERE CONSITIPATION; Start 07/21/16 at 15: 15; Status Hold Dextrose/Sodium Chloride (D5W-1/2 NS 1000 ml Inj) 1,000 ml @ 125 mls/hr Q8H IV Last administered on 07/23/16 08:51; Start 07/21/16 at 15:15 Budesonide/ Formoterol Fumarate (Symbicort 80-4.5 Mcg Inh) 1 puff Q12HR INH Last administered on 07/23/16 08:53; Start 07/21/16 at 21:00 Albuterol/ Ipratropium (Duoneb Neb) 1 ampule Q4HR NEB PRN NEB SOB/WHEEZING Last administered on 07/23/16 02:26; Start 07/21/16 at 17:30 Metoprolol Tartrate 12.5 mg 12.5 mg Q12HR PO ; Start 07/21/16 at 21:00; Status Hold Sodium Chloride (NS 250 ml Inj) 250 ml @ 250 mls/hr BOLUS ONCE IV Last administered on 07/21/16 18:30; Start 07/21/16 at 17:30; Stop 07/21/16 at 18:29 ; Status DC Miscellaneous (Pill Splitter) 1 ea UNSCH PRN OTHER SEE LABEL COMMENTS; Start at 17:30 Phenol (Chloraseptic [place]) 2 spray Q2H PRN OROPHARYNG sore throat; Start 07/21 at 22:00 Morphine Sulfate (Morphine Inj) 2 mg Q3H PRN IV PUSH PAIN Last administered on 07/23/16 08:52; Start 07/21/16 at 22:00 Diphenhydramine HCl (Benadryl Inj) 25 mg Q6H PRN IV PUSH itching/rash Last administered on 07/22/16 21:11; Start 07/21/16 at 22:00 Gentamicin Sulfate 240 mg 240 mg STK-MED ONCE .ROUTE ; Start 07/22/16 at 13:11; Stop 07/22/16 at 13:12; Status DC Ciprofloxacin/ Dextrose 200 ml @ As Directed STK-MED ONCE .ROUTE Last administered on 07/22/16 14:07; Start 07/22/16 at 13:31; Stop 07/22/16 at 13:32 ; Status DC Metronidazole (Flagyl 500 Mg Inj) 100 ml @ As Directed STK-MED ONCE IV Last administered on 07/22/16 14:08; Start 07/22/16 at 13:31; Stop 07/22/16 at 13:32 ; Status DC Famotidine (Pepcid Inj) 20 mg STK-MED ONCE .ROUTE ; Start 07/22/16 at 13:32; Stop 07/22/16 at 13:33; Status DC Midazolam HCl (Versed Inj) 2 mg STK-MED ONCE .ROUTE ; Start 07/22/16 at 13:33; Stop 07/22/16 at 13:34; Status DC Famotidine (Pepcid Inj) 20 mg STK-MED ONCE IV PUSH Last administered on 13:36; Start 07/22/16 at 13:36; Stop 07/22/16 at 14:00; Status DC Midazolam HCl (Versed Inj) 2 mg STK-MED ONCE IV PUSH Last administered on 13:36; Start 07/22/16 at 13:36; Stop 07/22/16 at 14:00; Status DC Sugammadex Sodium (Bridion Inj) 200 mg STK-MED ONCE IV PUSH ; Start 07/22/16 at 17:15; Stop 07/22/16 at 17:16; Status DC Pantoprazole Sodium (Protonix Inj) 40 mg Q24H IV PUSH Last administered on 07/22 18:00; Start 07/22/16 at 18:00 Neostigmine Methylsulfate (Prostigmin Inj) 10 mg STK-MED ONCE .ROUTE ; Start at 17:59; Stop 07/22/16 at 18:00; Status DC Glycopyrrolate (Robinul Inj) 0.2 mg STK-MED ONCE .ROUTE ; Start 07/22/16 at 17: 59; Stop 07/22/16 at 18:00; Status DC Morphine Sulfate (*morphine INJ PERIprocedure ONLY) 8 mg STK-MED ONCE .ROUTE Last administered on 07/22/16 18:10; Start 07/22/16 at 18:10; Stop 07/22/16 at 18:11; Status DC Miscellaneous Information ALL NURSING DEPARTME... UNSCH PRN .XX SEE LABEL COMMENTS; Start 07/22/16 at 18:05; Stop 07/23/16 at 18:04 Fentanyl Citrate (fentaNYL INJ) 250 mcg STK-MED ONCE .ROUTE ; Start 07/22/16 at 19:05; Stop 07/22/16 at 19:06; Status DC Morphine Sulfate (Morphine Inj) 4 mg ONCE ONCE IV PUSH Last administered on 22:31; Start 07/22/16 at 22:30; Stop 07/22/16 at 22:31; Status DC Morphine Sulfate 4 mg 4 mg ONCE ONCE IV PUSH Last administered on 07/23/16 04 :26; Start 07/23/16 at 04:00; Stop 07/23/16 at 04:09; Status DC Calcium Gluconate/ Sodium Chloride (Calcium Gluconate Inj/NS Inj) 110 ml @ 110 mls/hr ONCE ONCE IV ; Start 07/23/16 at 10:00; Stop 07/23/16 at 10:59 A/P Assessment and Plan //Small bowel obstruction //Nausea and vomiting -CT abdomen showed dilated small bowel loops, distended stomach. -NG tube to low intermittent suction. -Antiemetics as necessary -Status post exploratory laparotomy with lysis of adhesions on 07/22/[address] Galindo. -Clinically improved drastically. Continue current management per general surgery. //SIRS criteria -Tachycardia could be secondary to beta joya withdrawal. -Improved with treatment. //Hyperkalemia. Potassium 5.4. Slight hemolysis noted. Repeat showed resolution. //CHF. //Hyperlipidemia -Chronic low blood pressure in the hospital with systolics 80s to 90s. -Gentle IV fluids with improvement of blood pressure. This is most likely patient's baseline. -Will restart home medication. //COPD. -Duo nebs when necessary. Continue Symbicort. Oxygen as necessary Incentive spirometry and Acapella. //Prophylaxis. SCDs. Anticoagulation As per surgical service Discharge Planning Patient is medically stable can be transferred out of the [facility] to the surgical floor. Génesis Montelongo MD Jul 23, 2016 09:46
[2016-07-23] MEDS ORDERED: CALCIUM GLUCONATE INJ 1 GM in SODIUM CHLORIDE 0.9% INJ 100 ML IV ONE (10:00)
[2016-07-23] MEDS ORDERED: PADIMATE (CHAPSTICK) 4.5 GM TUBE TOPICAL PRN (11:30)
--- NOTE | 2016-07-23 11:51 | HHI.PR ---
Subjective Subjective Notes Painful; crying Abdominal binder uncomfortable---myself and Jean fixed binder Objective Vitals/I&O Vital Signs Date Time Temp Pulse Resp B/P Pulse Ox O2 Delivery O2 Flow Rate FiO2 07/23/16 09:04 97 Nasal Cannula 4.00 07/23/16 04:00 97.6 94 18 109/53 Labs Laboratory Tests Test 07/22/16 07/23/16 17:58 03:27 White Blood Count 9.5 11.1 Red Blood Count 4.08 4.29 Hemoglobin 11.8 12.7 Hematocrit 37.7 39.0 Mean Corpuscular Volume 92.6 90.8 Mean Corpuscular Hemoglobin 28.9 29.6 Mean Corpuscular Hemoglobin 31.2 32.6 Concent Red Cell Distribution Width 15.3 15.1 Platelet Count 181 172 Mean Platelet Volume 8.9 8.7 Neutrophils (%) (Auto) 80.1 88.0 Lymphocytes (%) (Auto) 9.9 2.7 Monocytes (%) (Auto) 9.4 9.2 Eosinophils (%) (Auto) 0.3 0.0 Basophils (%) (Auto) 0.3 0.1 Neutrophils # (Auto) 7.6 9.8 Lymphocytes # (Auto) 0.9 0.3 Monocytes # (Auto) 0.9 1.0 Eosinophils # (Auto) 0.0 0.0 Basophils # (Auto) 0.0 0.0 CBC Comment DIFF FINAL DIFF FINAL Differential Comment Sodium Level 136 135 Potassium Level 3.8 4.2 Chloride Level 99 98 Carbon Dioxide Level 29.8 31.5 Anion Gap 7 6 Blood Urea Nitrogen 6 5 Creatinine 0.31 0.56 Estimat Glomerular Filtration 208 105 Rate Random Glucose 134 81 Calcium Level 7.4 7.1 Protein Corrected Calcium 8.9 8.2 Total Protein 4.5 5.1 Radiology Last 48 hours Impressions Abdomen/Pelvis CT 07/21/16 1107 Signed Impressions: Service Date/Time: Thursday, July 21, 2016 12:54 - CONCLUSION: 1. Multiple fluid-filled dilated loops of jejunum suggesting distal jejunal or proximal ileal small bowel obstruction. Clinical correlation is recommended. 2. Degenerative changes and scoliosis of the lumbar spine. 3. Diffuse sclerosis involving the left symphysis pubis as well as the anterior portion of the left inferior pubic ramus. 4. Stable 2.1 cm right renal cyst. Maurisio Mcleod MD Chest X-Ray 07/21/16 0000 Signed Impressions: Service Date/Time: Thursday, July 21, 2016 12:18 - CONCLUSION: COPD. No evidence of acute cardiopulmonary process. 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 Galindo Abdominal dressing with some bloody drainage, old Labs noted Stable Await return of bowel function The exam, history, and the medical decision-making described in the above note were completed with the assistance of the mid-level provider. I reviewed and agree with the findings presented. I attest that I had a [id number] encounter with the patient on the same day, and personally performed and documented my assessment and findings in the medical record. Evelyn Hill Jul 23, 2016 11:51 Carlos Galindo MD Jul 24, 2016 11:49
[2016-07-23] MEDS ORDERED: NALOXONE HCL 0.4 MG/ML AMP IV PRN (12:15)
[2016-07-23] MEDS: diphenhydrAMINE HCL 50 MG/ML VIAL IV PUSH PRN (12:25)
[2016-07-23] MEDS ORDERED: MORPHINE SULFATE 30 MG/30 ML PCA IV SCH (12:30)
[2016-07-23] MEDS: PCA - TOTAL MG MORPHINE DELIVERED PER SHIFT SCH ×2 (14:00→22:00)
[2016-07-23] MEDS: PANTOPRAZOLE SODIUM 40 MG VIAL IV PUSH SCH (18:17)
[2016-07-23] MEDS: CARVEDILOL 3.125 MG TAB PO SCH (21:00)
[2016-07-23] MEDS: ONDANSETRON HCL 4 MG/2 ML VIAL IVP PRN (22:49)
[2016-07-23] MEDS ORDERED: PROMETHAZINE 25 MG/ML IM PRN (23:30)
[2016-07-24] VITALS (7 sets, daily range): BP systolic 107–120; BP diastolic 52–67; PULSE 83–101; RESP 18–20; TEMP 97–98.1; O2SAT 92–98
[2016-07-24] MEDS: DEXT 5%-NACL 0.45% 1000 ML INJ 1,000 ML IV SCH ×4 (01:28→23:02)
[2016-07-24] MEDS: MORPHINE SULFATE 4 MG/ML INJ IV PUSH PRN (03:22)
[2016-07-24] MEDS: PCA - TOTAL MG MORPHINE DELIVERED PER SHIFT SCH ×3 (05:06→21:27)
[2016-07-24] MEDS: SODIUM CHLORIDE 0.9% FLUSH 10 ML FLUSH IV FLUSH SCH ×2 (08:55→21:00)
[2016-07-24] MEDS: BUDESONIDE-FORMOTEROL 80/4.5 MCG INHALER INH SCH ×2 (08:56→09:02)
[2016-07-24] MEDS: CARVEDILOL 3.125 MG TAB PO SCH ×2 (08:57→21:23)
[2016-07-24] MEDS ORDERED: CALCIUM GLUCONATE INJ 1 GM in SODIUM CHLORIDE 0.9% INJ 100 ML IV ONE (09:00)
[2016-07-24] MEDS: RESP: ALBUTEROL 2.5 MG/IPRATROPIUM 0.5 MG NEB (PRN) NEB ×3 (09:02→19:15)
--- NOTE | 2016-07-24 09:23 | HHI.PR ---
Subjective Remarks Follow-up for small bowel obstruction Patient stated that pain is better controlled. She denies any nausea/vomiting. She remained afebrile. Patient also denies any shortness of breathing. She has no complaints. Patient was found to have wrist restraints on her left arm. Patient stated that she does not remember why. Patient is AAO 3. She answers questions appropriately and behaves appropriately. respiratory at her bedside during encounter. Objective Vitals Vital Signs Date Time Temp Pulse Resp B/P Pulse Ox O2 Delivery O2 Flow Rate FiO2 07/24/16 09:02 96 Nasal Cannula 3.00 07/24/16 08:00 97.0 101 18 120/58 95 07/24/16 03:40 18 07/24/16 00:00 97.3 86 18 115/67 92 07/23/16 22:50 Nasal Cannula 3.00 07/23/16 20:00 97.7 97 16 111/56 94 07/23/16 19:55 95 Nasal Cannula 4.00 07/23/16 16:00 96.8 92 16 115/54 95 07/23/16 15:00 3 Nasal Cannula 07/23/16 14:40 16 07/23/16 14:00 16 07/23/16 12:00 97.8 90 15 106/53 97 I/O 07/23/16 07/23/16 07/23/16 07/24/16 07/24/16 07/24/16 07:00 15:00 23:00 07:00 15:00 23:00 Intake Total 762 ml 1098 ml 645 ml 794 ml 0 ml Output Total 225 ml 425 ml 300 ml 650 ml Balance 537 ml 673 ml 345 ml 144 ml 0 ml Intake Oral 0 ml IV Total 762 ml 1098 ml 645 ml 794 ml Output Urine Total 225 ml 375 ml 300 ml 650 ml Gastric Drainage Total 50 ml 0 ml 0 ml # Bowel Movements 0 0 Result Diagram: 07/23/16 0327 07/23/16 0327 Objective Remarks GENERAL: in NAD NG in placed CARDIOVASCULAR: Regular rate and rhythm without murmurs, gallops, or rubs. RESPIRATORY: Breath sounds equal bilaterally. No accessory muscle use. GASTROINTESTINAL: Abdomen soft, mild tenderness palpation at the incision line, nondistended. Incision dry clean and intact. binder in place MUSCULOSKELETAL: No cyanosis, or edema. BACK: Nontender without obvious deformity. No CVA tenderness. Medications and IVs Current Medications Ondansetron HCl (Zofran Inj) 4 mg ONCE ONCE IVP Last administered on 11:58; Start 07/21/16 at 11:15; Stop 07/21/16 at 11:16; Status DC Sodium Chloride 2 ml 2 ml UNSCH PRN IV FLUSH FLUSH AFTER USING IV ACCESS Last administered on 07/21/16 15:13; Start 07/21/16 at 11:15; Stop 07/21/16 at 15:23 ; Status DC Sodium Chloride (NS 500 ml Inj) 500 ml @ 500 mls/hr BOLUS ONCE IV Last administered on 07/21/16 11:58; Start 07/21/16 at 11:15; Stop 07/21/16 at 12:14 ; Status DC Diatrizoate Meglum/ Diatrizoate Sod ( Gastroview Liq) 18 ml STK-MED ONCE .ROUTE Last administered on 07/21/16 12:01; Start 07/21/16 at 11:41; Stop at 11:42; Status DC Iohexol (Omnipaque 350 Inj) 75 ml STK-MED ONCE IV Last administered on 13:06; Start 07/21/16 at 13:06; Stop 07/21/16 at 13:07; Status DC Lidocaine HCl (Xylocaine 2% Jelly) 1 applic ONCE ONCE TOPICAL Last administered on 07/21/16 15:13; Start 07/21/16 at 14:30; Stop 07/21/16 at 14:31 ; Status DC Lorazepam (Ativan Inj) 0.25 mg ONCE ONCE IV PUSH Last administered on 15:13; Start 07/21/16 at 15:15; Stop 07/21/16 at 15:16; Status DC Sodium Chloride (NS Flush) 2 ml UNSCH PRN IV FLUSH FLUSH AFTER USING IV ACCESS ; Start 07/21/16 at 15:15 Sodium Chloride (NS Flush) 2 ml BID IV FLUSH Last administered on 07/23/16 22: 49; Start 07/21/16 at 21:00 Ondansetron HCl (Zofran Inj) 4 mg Q6H PRN IVP NAUSEA OR VOMITING Last administered on 07/23/16 22:49; Start 07/21/16 at 15:15 Naloxone HCl (Narcan Inj) 0.4 mg UNSCH PRN IV SEE LABEL COMMENTS; Start at 15:15; Stop 07/23/16 at 12:30; Status DC Senna/Docusate Sodium (Holli-Colace) 1 tab BID PO ; Start 07/21/16 at 21:00; Status Hold Magnesium Hydroxide (Milk Of Magnesia Liq) 30 ml Q12H PRN PO MILD - MODERATE CONSTIPATION; Start 07/21/16 at 15:15; Status Hold Sennosides (Senokot) 17.2 mg Q12H PRN PO MODERATE - SEVERE CONSTIPATION; Start 07/21/16 at 15:15; Status Hold Bisacodyl (Dulcolax Supp) 10 mg DAILY PRN RECTAL SEVERE CONSITIPATION; Start at 15:15 Lactulose 30 ml 30 ml DAILY PRN PO SEVERE CONSITIPATION; Start 07/21/16 at 15: 15; Status Hold Dextrose/Sodium Chloride (D5W-1/2 NS 1000 ml Inj) 1,000 ml @ 125 mls/hr Q8H IV Last administered on 07/24/16 01:28; Start 07/21/16 at 15:15 Budesonide/ Formoterol Fumarate (Symbicort 80-4.5 Mcg Inh) 1 puff Q12HR INH Last administered on 07/24/16 09:02; Start 07/21/16 at 21:00 Albuterol/ Ipratropium (Duoneb Neb) 1 ampule Q4HR NEB PRN NEB SOB/WHEEZING Last administered on 07/24/16 09:02; Start 07/21/16 at 17:30 Metoprolol Tartrate 12.5 mg 12.5 mg Q12HR PO ; Start 07/21/16 at 21:00; Stop at 11:01; Status DC Sodium Chloride (NS 250 ml Inj) 250 ml @ 250 mls/hr BOLUS ONCE IV Last administered on 07/21/16 18:30; Start 07/21/16 at 17:30; Stop 07/21/16 at 18:29 ; Status DC Miscellaneous (Pill Splitter) 1 ea UNSCH PRN OTHER SEE LABEL COMMENTS; Start at 17:30 Phenol (Chloraseptic [place]) 2 spray Q2H PRN OROPHARYNG sore throat; Start 07/21 at 22:00 Morphine Sulfate (Morphine Inj) 2 mg Q3H PRN IV PUSH PAIN Last administered on 07/24/16 03:22; Start 07/21/16 at 22:00 Diphenhydramine HCl (Benadryl Inj) 25 mg Q6H PRN IV PUSH itching/rash Last administered on 07/23/16 12:25; Start 07/21/16 at 22:00 Gentamicin Sulfate 240 mg 240 mg STK-MED ONCE .ROUTE ; Start 07/22/16 at 13:11; Stop 07/22/16 at 13:12; Status DC Ciprofloxacin/ Dextrose 200 ml @ As Directed STK-MED ONCE .ROUTE Last administered on 07/22/16 14:07; Start 07/22/16 at 13:31; Stop 07/22/16 at 13:32 ; Status DC Metronidazole (Flagyl 500 Mg Inj) 100 ml @ As Directed STK-MED ONCE IV Last administered on 07/22/16 14:08; Start 07/22/16 at 13:31; Stop 07/22/16 at 13:32 ; Status DC Famotidine (Pepcid Inj) 20 mg STK-MED ONCE .ROUTE ; Start 07/22/16 at 13:32; Stop 07/22/16 at 13:33; Status DC Midazolam HCl (Versed Inj) 2 mg STK-MED ONCE .ROUTE ; Start 07/22/16 at 13:33; Stop 07/22/16 at 13:34; Status DC Famotidine (Pepcid Inj) 20 mg STK-MED ONCE IV PUSH Last administered on 13:36; Start 07/22/16 at 13:36; Stop 07/22/16 at 14:00; Status DC Midazolam HCl (Versed Inj) 2 mg STK-MED ONCE IV PUSH Last administered on 13:36; Start 07/22/16 at 13:36; Stop 07/22/16 at 14:00; Status DC Sugammadex Sodium (Bridion Inj) 200 mg STK-MED ONCE IV PUSH ; Start 07/22/16 at 17:15; Stop 07/22/16 at 17:16; Status DC Pantoprazole Sodium (Protonix Inj) 40 mg Q24H IV PUSH Last administered on 07/23 18:17; Start 07/22/16 at 18:00 Neostigmine Methylsulfate (Prostigmin Inj) 10 mg STK-MED ONCE .ROUTE ; Start at 17:59; Stop 07/22/16 at 18:00; Status DC Glycopyrrolate (Robinul Inj) 0.2 mg STK-MED ONCE .ROUTE ; Start 07/22/16 at 17: 59; Stop 07/22/16 at 18:00; Status DC Morphine Sulfate (*morphine INJ PERIprocedure ONLY) 8 mg STK-MED ONCE .ROUTE Last administered on 07/22/16 18:10; Start 07/22/16 at 18:10; Stop 07/22/16 at 18:11; Status DC Miscellaneous Information ALL NURSING DEPARTME... UNSCH PRN .XX SEE LABEL COMMENTS; Start 07/22/16 at 18:05; Stop 07/23/16 at 18:04; Status DC Fentanyl Citrate (fentaNYL INJ) 250 mcg STK-MED ONCE .ROUTE ; Start 07/22/16 at 19:05; Stop 07/22/16 at 19:06; Status DC Morphine Sulfate (Morphine Inj) 4 mg ONCE ONCE IV PUSH Last administered on 22:31; Start 07/22/16 at 22:30; Stop 07/22/16 at 22:31; Status DC Morphine Sulfate 4 mg 4 mg ONCE ONCE IV PUSH Last administered on 07/23/16 04 :26; Start 07/23/16 at 04:00; Stop 07/23/16 at 04:09; Status DC Calcium Gluconate/ Sodium Chloride (Calcium Gluconate Inj/NS Inj) 110 ml @ 110 mls/hr ONCE ONCE IV Last administered on 07/23/16 11:11; Start 07/23/16 at 10 :00; Stop 07/23/16 at 10:59; Status DC Carvedilol (Coreg) 3.125 mg BID PO Last administered on 07/24/16 08:57; Start 07/23/16 at 21:00 Pravastatin Sodium (Pravachol) 10 mg DAILY PO ; Start 07/24/16 at 11:00 Padimate O (Chapstick) 1 applic UNSCH PRN TOPICAL dry lips; Start 07/23/16 at 11:30 Naloxone HCl (Narcan Inj) 0.4 mg UNSCH PRN IV RESPIRATORY RATE LESS THAN 10; Start 07/23/16 at 12:15 Morphine Sulfate (Morphine 1 Mg/ ml TORTS LAW PROFESSOR) 30 mg UNSCH IV Last administered on 14:40; Start 07/23/16 at 12:30; Stop 07/23/16 at 16:36; Status DC TORTS LAW PROFESSOR Dosage Infused (Pha) 1 Q8HR .XX Last administered on 07/23/16 14:00; Start 07/23/16 at 14:00 Non-Formulary Medication INJECT 12.5MG IM ... Q6H PRN IM NAUSEA; Start at 23:30 Calcium Gluconate/ Sodium Chloride (Calcium Gluconate Inj/NS Inj) 110 ml @ 110 mls/hr ONCE ONCE IV ; Start 07/24/16 at 09:00; Stop 07/24/16 at 09:59 A/P Assessment and Plan //Small bowel obstruction -CT abdomen showed dilated small bowel loops, distended stomach. -NG tube to low intermittent suction. -Antiemetics as necessary -Status post exploratory laparotomy with lysis of adhesions on 07/22/[address] Galindo. -Clinically improved drastically. Continue current management per general surgery. //SIRS criteria -Tachycardia could be secondary to beta joya withdrawal. -Improved with treatment. //Hyperkalemia. Potassium 5.4. Slight hemolysis noted. Repeat showed resolution. //CHF. //Hyperlipidemia -Chronic low blood pressure in the hospital with systolics 80s to 90s. -Gentle IV fluids with improvement of blood pressure. This is most likely patient's baseline. -Continue home medication. //COPD. -Duo nebs when necessary. Continue Symbicort. Oxygen as necessary Incentive spirometry and Acapella. //Prophylaxis. SCDs. Anticoagulation As per surgical service Discharge Planning Continue management per general surgery. Génesis Montelongo MD Jul 24, 2016 09:23
[2016-07-24] MEDS: PRAVASTATIN SOD 10 MG TAB PO SCH (12:18)
[2016-07-24] MEDS: HYDROmorphone HCL PF 1 MG/ML VIAL IV PUSH PRN ×2 (12:20→23:05)
--- NOTE | 2016-07-24 14:28 | HHI.PR ---
Subjective Subjective Notes Up to chair; painful when moving at bedside Objective Vitals/I&O Vital Signs Date Time Temp Pulse Resp B/P Pulse Ox O2 Delivery O2 Flow Rate FiO2 07/24/16 12:00 97.9 83 18 120/53 98 07/24/16 09:21 Nasal Cannula 3.00 Radiology Last 48 hours Impressions Abdomen/Pelvis CT 07/21/16 1107 Signed Impressions: Service Date/Time: Thursday, July 21, 2016 12:54 - CONCLUSION: 1. Multiple fluid-filled dilated loops of jejunum suggesting distal jejunal or proximal ileal small bowel obstruction. Clinical correlation is recommended. 2. Degenerative changes and scoliosis of the lumbar spine. 3. Diffuse sclerosis involving the left symphysis pubis as well as the anterior portion of the left inferior pubic ramus. 4. Stable 2.1 cm right renal cyst. Maurisio Mcleod MD Chest X-Ray 07/21/16 0000 Signed Impressions: Service Date/Time: Thursday, July 21, 2016 12:18 - CONCLUSION: COPD. No evidence of acute cardiopulmonary process. Rosendo Marquez MD Cardiovascular: Regular Lungs: Clear Abdomen: Other (midline incision with gregory---dressing removed; abdomen soft ; tender at incision site ) Extremities: No edema Narrative Exam NGT to LIWS A/P Assessment and Plan 75 year old female POD2 ex lap; SOFÍA; SBR with primary anastomosis -NPO; okay for swabs -Await bowel function to start PO intake -NGT to LIWS -DC [place] -IVF -Pain control - at bedside updated Attending Note - Dr. Galindo Abdomen soft, tender; incision clean and dry; gregory intact Await return of bowel function to D/C NG and start diet The exam, history, and the medical decision-making described in the above note were completed with the assistance of the mid-level provider. I reviewed and agree with the findings presented. I attest that I had a [id number] encounter with the patient on the same day, and personally performed and documented my assessment and findings in the medical record. Evelyn Hill Jul 24, 2016 14:28 Carlos Galindo MD Jul 25, 2016 06:27
[2016-07-24] MEDS: PANTOPRAZOLE SODIUM 40 MG VIAL IV PUSH SCH (18:16)
[2016-07-25] MEDS: RESP: ALBUTEROL 2.5 MG/IPRATROPIUM 0.5 MG NEB (PRN) NEB (02:43)
[2016-07-25 02:45] VITALS: O2SAT 95
[2016-07-25 05:22] LABS: HEMATOCRIT 32.3 % (35.0-46.0); MEAN CELL VOLUME 90.3 FL (80.0-100.0); MEAN CORPUSCULAR HEMOGLOBIN 29.9 PG (27.0-34.0); MEAN CORPUSCULAR HGB CONC 33.1 % (32.0-36.0); PLATELET COUNT 172 TH/MM3 (150-450); RED BLOOD COUNT 3.58 MIL/MM3 (4.00-5.30); RED CELL DISTRIBUTION WIDTH 14.4 % (11.6-17.2); REVIEW FLAG FINAL; WHITE BLOOD COUNT 10.3 TH/MM3 (4.0-11.0)
[2016-07-25] MEDS: PCA - TOTAL MG MORPHINE DELIVERED PER SHIFT SCH ×3 (05:51→21:11)
[2016-07-25 05:53] LABS: BICARBONATE 34.4 MEQ/L (21.0-32.0); POTASSIUM 3.6 MEQ/L (3.5-5.1)
[2016-07-25] MEDS: DEXT 5%-NACL 0.45% 1000 ML INJ 1,000 ML IV SCH ×2 (07:30→16:46)
[2016-07-25 08:00] VITALS: BP 97/54; PULSE 80; RESP 16; TEMP 96.3; O2SAT 98
[2016-07-25] MEDS: HYDROmorphone HCL PF 1 MG/ML VIAL IV PUSH PRN ×2 (08:03→11:40)
[2016-07-25] MEDS: CARVEDILOL 3.125 MG TAB PO SCH ×2 (08:03→21:01)
[2016-07-25] MEDS: PRAVASTATIN SOD 10 MG TAB PO SCH ×2 (08:03→08:21)
[2016-07-25] MEDS: SODIUM CHLORIDE 0.9% FLUSH 10 ML FLUSH IV FLUSH SCH ×2 (08:05→21:02)
[2016-07-25] MEDS: BUDESONIDE-FORMOTEROL 80/4.5 MCG INHALER INH SCH ×2 (08:05→21:11)
[2016-07-25 08:38] VITALS: O2SAT 90
[2016-07-25] MEDS ORDERED: CALCIUM GLUCONATE INJ 1 GM in SODIUM CHLORIDE 0.9% INJ 100 ML IV ONE (09:00)
--- NOTE | 2016-07-25 09:24 | HHI.PR ---
Subjective Remarks f/u for SBO patient c/o of sore throat due to NGT she stated that she has not had BM or gas yet. pain controlled with medication. denied any N/V. Objective Vitals Vital Signs Date Time Temp Pulse Resp B/P Pulse Ox O2 Delivery O2 Flow Rate FiO2 07/25/16 08:38 90 Nasal Cannula 2.00 07/25/16 08:08 Nasal Cannula 3.00 07/25/16 08:00 96.3 80 16 97/54 98 07/25/16 02:45 95 Nasal Cannula 3.00 07/24/16 21:00 Humidified 3.00 07/24/16 20:00 98.1 90 18 107/52 92 07/24/16 19:15 96 Nasal Cannula 3.00 07/24/16 16:00 97.2 99 20 114/54 97 07/24/16 12:00 97.9 83 18 120/53 98 I/O 07/24/16 07/24/16 07/24/16 07/25/16 07/25/16 07/25/16 07:00 15:00 23:00 07:00 15:00 23:00 Intake Total 794 ml 0 ml 1173 ml 992 ml Output Total 650 ml 550 ml 250 ml 0 ml Balance 144 ml -550 ml 923 ml 992 ml Intake Oral 0 ml IV Total 794 ml 1173 ml 992 ml Output Urine Total 650 ml 500 ml 200 ml Gastric Drainage Total 0 ml 50 ml 50 ml 0 ml # Voids 3 # Bowel Movements 0 0 0 Result Diagram: 07/25/16 0456 07/25/16 045 Objective Remarks GENERAL: in NAD NG in placed CARDIOVASCULAR: Regular rate and rhythm without murmurs, gallops, or rubs. RESPIRATORY: Breath sounds equal bilaterally. No accessory muscle use. GASTROINTESTINAL: Abdomen soft, mild tenderness palpation at the incision line, nondistended. Incision dry clean and intact. binder in place MUSCULOSKELETAL: No cyanosis, or edema. BACK: Nontender without obvious deformity. No CVA tenderness. Medications and IVs Current Medications Ondansetron HCl (Zofran Inj) 4 mg ONCE ONCE IVP Last administered on t 11:58; Start 07/21/16 at 11:15; Stop 07/21/16 at 11:16; Status DC Sodium Chloride 2 ml 2 ml UNSCH PRN IV FLUSH FLUSH AFTER USING IV ACCESS Last administered on 07/21/16 15:13; Start 07/21/16 at 11:15; Stop 07/21/16 at 15:23 ; Status DC Sodium Chloride (NS 500 ml Inj) 500 ml @ 500 mls/hr BOLUS ONCE IV Last administered on 07/21/16 11:58; Start 07/21/16 at 11:15; Stop 07/21/16 at 12:14 ; Status DC Diatrizoate Meglum/ Diatrizoate Sod ( Gastroview Liq) 18 ml STK-MED ONCE .ROUTE Last administered on 07/21/16 12:01; Start 07/21/16 at 11:41; Stop at 11:42; Status DC Iohexol (Omnipaque 350 Inj) 75 ml STK-MED ONCE IV Last administered on 13:06; Start 07/21/16 at 13:06; Stop 07/21/16 at 13:07; Status DC Lidocaine HCl (Xylocaine 2% Jelly) 1 applic ONCE ONCE TOPICAL Last administered on 07/21/16 15:13; Start 07/21/16 at 14:30; Stop 07/21/16 at 14:31 ; Status DC Lorazepam (Ativan Inj) 0.25 mg ONCE ONCE IV PUSH Last administered on 15:13; Start 07/21/16 at 15:15; Stop 07/21/16 at 15:16; Status DC Sodium Chloride (NS Flush) 2 ml UNSCH PRN IV FLUSH FLUSH AFTER USING IV ACCESS ; Start 07/21/16 at 15:15 Sodium Chloride (NS Flush) 2 ml BID IV FLUSH Last administered on 07/23/16 22: 49; Start 07/21/16 at 21:00 Ondansetron HCl (Zofran Inj) 4 mg Q6H PRN IVP NAUSEA OR VOMITING Last administered on 07/23/16 22:49; Start 07/21/16 at 15:15 Naloxone HCl (Narcan Inj) 0.4 mg UNSCH PRN IV SEE LABEL COMMENTS; Start at 15:15; Stop 07/23/16 at 12:30; Status DC Senna/Docusate Sodium (Holli-Colace) 1 tab BID PO ; Start 07/21/16 at 21:00; Status Hold Magnesium Hydroxide (Milk Of Magnesia Liq) 30 ml Q12H PRN PO MILD - MODERATE CONSTIPATION; Start 07/21/16 at 15:15; Status Hold Sennosides (Senokot) 17.2 mg Q12H PRN PO MODERATE - SEVERE CONSTIPATION; Start 07/21/16 at 15:15; Status Hold Bisacodyl (Dulcolax Supp) 10 mg DAILY PRN RECTAL SEVERE CONSITIPATION; Start at 15:15 Lactulose 30 ml 30 ml DAILY PRN PO SEVERE CONSITIPATION; Start 07/21/16 at 15: 15; Status Hold Dextrose/Sodium Chloride (D5W-1/2 NS 1000 ml Inj) 1,000 ml @ 125 mls/hr Q8H IV Last administered on 07/25/16 07:30; Start 07/21/16 at 15:15 Budesonide/ Formoterol Fumarate (Symbicort 80-4.5 Mcg Inh) 1 puff Q12HR INH Last administered on 07/25/16 08:05; Start 07/21/16 at 21:00 Albuterol/ Ipratropium (Duoneb Neb) 1 ampule Q4HR NEB PRN NEB SOB/WHEEZING Last administered on 07/25/16 02:43; Start 07/21/16 at 17:30 Metoprolol Tartrate 12.5 mg 12.5 mg Q12HR PO ; Start 07/21/16 at 21:00; Stop at 11:01; Status DC Sodium Chloride (NS 250 ml Inj) 250 ml @ 250 mls/hr BOLUS ONCE IV Last administered on 07/21/16 18:30; Start 07/21/16 at 17:30; Stop 07/21/16 at 18:29 ; Status DC Miscellaneous (Pill Splitter) 1 ea UNSCH PRN OTHER SEE LABEL COMMENTS; Start at 17:30 Phenol (Chloraseptic Warner) 2 spray Q2H PRN OROPHARYNG sore throat; Start 07/21 at 22:00 Morphine Sulfate (Morphine Inj) 2 mg Q3H PRN IV PUSH PAIN Last administered on 07/24/16 03:22; Start 07/21/16 at 22:00; Stop 07/24/16 at 11:25; Status DC Diphenhydramine HCl (Benadryl Inj) 25 mg Q6H PRN IV PUSH itching/rash Last administered on 07/23/16 12:25; Start 07/21/16 at 22:00 Gentamicin Sulfate 240 mg 240 mg STK-MED ONCE .ROUTE ; Start 07/22/16 at 13:11; Stop 07/22/16 at 13:12; Status DC Ciprofloxacin/ Dextrose 200 ml @ As Directed STK-MED ONCE .ROUTE Last administered on 07/22/16 14:07; Start 07/22/16 at 13:31; Stop 07/22/16 at 13:32 ; Status DC Metronidazole (Flagyl 500 Mg Inj) 100 ml @ As Directed STK-MED ONCE IV Last administered on 07/22/16 14:08; Start 07/22/16 at 13:31; Stop 07/22/16 at 13:32 ; Status DC Famotidine (Pepcid Inj) 20 mg STK-MED ONCE .ROUTE ; Start 07/22/16 at 13:32; Stop 07/22/16 at 13:33; Status DC Midazolam HCl (Versed Inj) 2 mg STK-MED ONCE .ROUTE ; Start 07/22/16 at 13:33; Stop 07/22/16 at 13:34; Status DC Famotidine (Pepcid Inj) 20 mg STK-MED ONCE IV PUSH Last administered on 13:36; Start 07/22/16 at 13:36; Stop 07/22/16 at 14:00; Status DC Midazolam HCl (Versed Inj) 2 mg STK-MED ONCE IV PUSH Last administered on 13:36; Start 07/22/16 at 13:36; Stop 07/22/16 at 14:00; Status DC Sugammadex Sodium (Bridion Inj) 200 mg STK-MED ONCE IV PUSH ; Start 07/22/16 at 17:15; Stop 07/22/16 at 17:16; Status DC Pantoprazole Sodium (Protonix Inj) 40 mg Q24H IV PUSH Last administered on 07/24 18:16; Start 07/22/16 at 18:00 Neostigmine Methylsulfate (Prostigmin Inj) 10 mg STK-MED ONCE .ROUTE ; Start at 17:59; Stop 07/22/16 at 18:00; Status DC Glycopyrrolate (Robinul Inj) 0.2 mg STK-MED ONCE .ROUTE ; Start 07/22/16 at 17: 59; Stop 07/22/16 at 18:00; Status DC Morphine Sulfate (*morphine INJ PERIprocedure ONLY) 8 mg STK-MED ONCE .ROUTE Last administered on 07/22/16 18:10; Start 07/22/16 at 18:10; Stop 07/22/16 at 18:11; Status DC Miscellaneous Information ALL NURSING DEPARTME... UNSCH PRN .XX SEE LABEL COMMENTS; Start 07/22/16 at 18:05; Stop 07/23/16 at 18:04; Status DC Fentanyl Citrate (fentaNYL INJ) 250 mcg STK-MED ONCE .ROUTE ; Start 07/22/16 at 19:05; Stop 07/22/16 at 19:06; Status DC Morphine Sulfate (Morphine Inj) 4 mg ONCE ONCE IV PUSH Last administered on 22:31; Start 07/22/16 at 22:30; Stop 07/22/16 at 22:31; Status DC Morphine Sulfate 4 mg 4 mg ONCE ONCE IV PUSH Last administered on 07/23/16 04 :26; Start 07/23/16 at 04:00; Stop 07/23/16 at 04:09; Status DC Calcium Gluconate/ Sodium Chloride (Calcium Gluconate Inj/NS Inj) 110 ml @ 110 mls/hr ONCE ONCE IV Last administered on 07/23/16 11:11; Start 07/23/16 at 10 :00; Stop 07/23/16 at 10:59; Status DC Carvedilol (Coreg) 3.125 mg BID PO Last administered on 07/24/16 21:23; Start 07/23/16 at 21:00 Pravastatin Sodium (Pravachol) 10 mg DAILY PO Last administered on 07/24/16 12 :18; Start 07/24/16 at 11:00 Padimate O (Chapstick) 1 applic UNSCH PRN TOPICAL dry lips; Start 07/23/16 at 11:30 Naloxone HCl (Narcan Inj) 0.4 mg UNSCH PRN IV RESPIRATORY RATE LESS THAN 10; Start 07/23/16 at 12:15 Morphine Sulfate (Morphine 1 Mg/ ml [employer]ET PROFESSIONAL) 30 mg UNSCH IV Last administered on 14:40; Start 07/23/16 at 12:30; Stop 07/23/16 at 16:36; Status DC [employer] Dosage Infused (Pha) 1 Q8HR .XX Last administered on 07/23/16 14:00; Start 07/23/16 at 14:00 Non-Formulary Medication INJECT 12.5MG IM ... Q6H PRN IM NAUSEA; Start at 23:30 Calcium Gluconate/ Sodium Chloride (Calcium Gluconate Inj/NS Inj) 110 ml @ 110 mls/hr ONCE ONCE IV Last administered on 07/24/16 10:13; Start 07/24/16 at 09 :00; Stop 07/24/16 at 09:59; Status DC Hydromorphone HCl 0.5 mg 0.5 mg Q4H PRN IV PUSH severe pain Last administered on 07/25/16 08:03; Start 07/24/16 at 12:00 Calcium Gluconate/ Sodium Chloride (Calcium Gluconate Inj/NS Inj) 110 ml @ 110 mls/hr ONCE ONCE IV ; Start 07/25/16 at 09:00; Stop 07/25/16 at 09:59 A/P Assessment and Plan //Small bowel obstruction -CT abdomen showed dilated small bowel loops, distended stomach. -NG tube to low intermittent suction. -Antiemetics as necessary -Status post exploratory laparotomy with lysis of adhesions on 07/22/[address] Galindo. -Per GS awaiting bowel movement before NG can be removed. -will see if chloraspetic helps with sore throat. //SIRS criteria -Tachycardia could be secondary to beta joya withdrawal. -Improved with treatment. //Hyperkalemia. Potassium 5.4. Slight hemolysis noted. Repeat showed resolution. //CHF. //Hyperlipidemia -Chronic low blood pressure in the hospital with systolics 80s to 90s. -Gentle IV fluids with improvement of blood pressure. This is most likely patient's baseline. -Continue home medication. //COPD. -Duo nebs when necessary. Continue Symbicort. Oxygen as necessary Incentive spirometry and Acapella. //Prophylaxis. SCDs. Anticoagulation As per surgical service Discharge Planning awaiting bowels to wake up before removing NG and allowing PO intake. Génesis Montelongo MD Jul 25, 2016 09:24
--- NOTE | 2016-07-25 09:52 | HHI.PR ---
Subjective Subjective Notes Sitting up on bedside commode, no flatus or Bm yet. Miserable with NG in, minimal output, makes it hard to swallow, very uncomfortable. Objective Vitals/I&O Vital Signs Date Time Temp Pulse Resp B/P Pulse Ox O2 Delivery O2 Flow Rate FiO2 07/25/16 08:38 90 Nasal Cannula 2.00 07/25/16 08:00 96.3 80 16 97/54 Labs Laboratory Tests Test 07/25/16 04:56 White Blood Count 10.3 Red Blood Count 3.58 Hemoglobin 10.7 Hematocrit 32.3 Mean Corpuscular Volume 90.3 Mean Corpuscular Hemoglobin 29.9 Mean Corpuscular Hemoglobin 33.1 Concent Red Cell Distribution Width 14.4 Platelet Count 172 Mean Platelet Volume 8.5 Sodium Level 137 Potassium Level 3.6 Chloride Level 99 Carbon Dioxide Level 34.4 Anion Gap 4 Blood Urea Nitrogen 3 Creatinine 0.34 Estimat Glomerular Filtration 187 Rate Random Glucose 131 Calcium Level 8.2 Radiology Last 48 hours Impressions Abdomen/Pelvis CT 07/21/16 1107 Signed Impressions: Service Date/Time: Thursday, July 21, 2016 12:54 - CONCLUSION: 1. Multiple fluid-filled dilated loops of jejunum suggesting distal jejunal or proximal ileal small bowel obstruction. Clinical correlation is recommended. 2. Degenerative changes and scoliosis of the lumbar spine. 3. Diffuse sclerosis involving the left symphysis pubis as well as the anterior portion of the left inferior pubic ramus. 4. Stable 2.1 cm right renal cyst. Maurisio Mcleod MD Chest X-Ray 07/21/16 0000 Signed Impressions: Service Date/Time: Thursday, July 21, 2016 12:18 - CONCLUSION: COPD. No evidence of acute cardiopulmonary process. Rosendo Marquez MD Abdomen: Non-distended, Non-tender, Other (BS active, not high pitched. No erythema or drainage, gregory intact.) A/P Assessment and Plan POD 3 ex lap adhesiolysis, SBR for SB resection. Plan try suppository or enema, if results, DC NG, begin clears. Clint Flaherty MD Jul 25, 2016 09:51
[2016-07-25 12:00] VITALS: BP 92/46; PULSE 80; RESP 16; TEMP 95.5; O2SAT 92
[2016-07-25] MEDS ORDERED: BISACODYL 10 MG SUPP RECTAL ONE (12:00)
[2016-07-25 15:00] VITALS: BP 105/55; PULSE 82; RESP 16; TEMP 97; O2SAT 95
[2016-07-25] MEDS: PANTOPRAZOLE SODIUM 40 MG VIAL IV PUSH SCH (17:12)
[2016-07-25] MEDS: PHENOL 1.4% SOLN 180 ML BTL OROPHARYNG PRN ×2 (17:15→18:52)
--- NOTE | 2016-07-25 19:37 | MP ---
cc: CARLOS GALINDO M.D. DATE OF SURGERY: 07/22/2016 PREOPERATIVE DIAGNOSIS: Persistent recurrent small-bowel obstruction. POSTOPERATIVE DIAGNOSIS: Persistent recurrent small bowel obstruction secondary to adhesions with stenotic small bowel in the distal jejunum. OPERATIVE PROCEDURE PERFORMED: 1. Exploratory laparotomy. 2. Lysis of adhesions greater than one hour. 3. Small bowel resection. SURGEON: Carlos Galindo MD. PLATE STACKER HAND: Prabha Xiao. ANESTHESIA: General endotracheal anesthesia. ESTIMATED BLOOD LOSS: 200 mL. FLUIDS: 3800 mL crystalloid. DESCRIPTION OF THE PROCEDURE IN DETAIL: The patient was taken to the operating room and placed on the operating table in the supine position. After an adequate level of general endotracheal anesthesia was achieved, the patient had placement of a central line in the abdomen and was then prepped and draped. A time-out was taken confirming the correct patient site and procedure to be performed. Incision was made through the patient's previous midline incision and dissection carried down through the fascia. The peritoneal cavity was entered uneventfully. Omentum was taken down off the anterior abdominal wall and careful sharp dissection was utilized to take the loops of bowel down off of the abdominal wall as well. A dilated small bowel was noted proximally and attempt was made to further dissect this away. There was a tightened loop of small bowel that was stenotic and after careful meticulous sharp dissection of this area, there was seen to be an area of stenosis with dilated loop proximal to this and collapsed small bowel distal to this. Continued careful dissection with sharp dissection and minimal use of blunt dissection was utilized to lyse adhesions from the ligament of Treitz to the ileocecal valve. This took a total of approximately two (2) hours for total mobilization of the small bowel. A fair amount of adhesions were noted in the pelvis and these were taken down with sharp dissection. The loops of small bowel were brought out of the pelvis and freed up. With this accomplished, the small bowel, which had a very thin wall, was divided proximally with a LIZTY stapler and then distally with a LITZY stapler. The investing fascia in-between was ligated and divided with silk sutures. At one point, the small bowel that was being resected opened up and the small bowel contents were quickly aspirated and cleaned away. The specimen was submitted and at this point, a jejunojejunostomy was fashioned in a [id number] fashion. A LITZY stapler was fired across this and a 3-0 silk suture was placed at the toe of the staple line. A DX 60 type stapler was used to close the jejunojejunostomy and the mesenteric defect was closed with 3-0 silk suture ligature. With this accomplished, fluid was able to be milked across a very wide anastomosis with no evidence of stricture or obstruction. Copious irrigation then ensued and 3 grams of Junie powder was placed into the pelvis. With this completed, the small bowel was allowed to drop back into an anatomic position and the omentum placed over the small bowel. The abdomen was closed with #1 PDS in a running fashion. The wound was closed loosely with gregory. A sterile dressing was applied. Sponge, needle and instrument counts were reported to be correct. The patient tolerated the procedure well. MD ANDREI Arreola/JCJarocho /3:11 PM /7:29 PM
[2016-07-25 20:00] VITALS: BP 125/58; PULSE 83; RESP 21; TEMP 96.8; O2SAT 95
[2016-07-26 00:03] VITALS: BP 131/60; PULSE 97; RESP 21; TEMP 96; O2SAT 91
[2016-07-26] MEDS: DEXT 5%-NACL 0.45% 1000 ML INJ 1,000 ML IV SCH ×3 (02:01→16:54)
[2016-07-26] MEDS: HYDROmorphone HCL PF 1 MG/ML VIAL IV PUSH PRN ×2 (02:18→04:05)
[2016-07-26] MEDS: PCA - TOTAL MG MORPHINE DELIVERED PER SHIFT SCH ×2 (06:00→09:30)
[2016-07-26 07:16] LABS: HEMATOCRIT 31.6 % (35.0-46.0); MEAN CORPUSCULAR HEMOGLOBIN 29.3 PG (27.0-34.0); MEAN CORPUSCULAR HGB CONC 32.9 % (32.0-36.0); PLATELET COUNT 238 TH/MM3 (150-450); RED BLOOD COUNT 3.55 MIL/MM3 (4.00-5.30); RED CELL DISTRIBUTION WIDTH 14.2 % (11.6-17.2); REVIEW FLAG FINAL; WHITE BLOOD COUNT 10.5 TH/MM3 (4.0-11.0)
[2016-07-26 07:42] LABS: BICARBONATE 33.7 MEQ/L (21.0-32.0); POTASSIUM 3.2 MEQ/L (3.5-5.1)
[2016-07-26 08:00] VITALS: BP 110/57; PULSE 104; RESP 16; TEMP 98.1; O2SAT 93
[2016-07-26] MEDS: BUDESONIDE-FORMOTEROL 80/4.5 MCG INHALER INH SCH ×2 (08:36→20:15)
[2016-07-26] MEDS: SODIUM CHLORIDE 0.9% FLUSH 10 ML FLUSH IV FLUSH SCH ×2 (08:36→20:14)
[2016-07-26] MEDS: CARVEDILOL 3.125 MG TAB PO SCH ×2 (08:36→20:14)
[2016-07-26] MEDS: PRAVASTATIN SOD 10 MG TAB PO SCH (08:37)
[2016-07-26] MEDS ORDERED: LORazepam 1 MG TAB PO ONE (09:00)
--- NOTE | 2016-07-26 09:15 | HHI.PR ---
Subjective Remarks Follow-up for small bowel obstruction Patient is very anxious today. She stated that she supposed to be on the mirtazapine but she has not been taking the medication. Patient is concerned that she has not been on medication. She denies any shortness of breathing or cough. Patient does not like the NG tube and. Abdominal pain is controlled. Otherwise no other complaints. Patient remains afebrile. Objective Vitals Vital Signs Date Time Temp Pulse Resp B/P Pulse Ox O2 Delivery O2 Flow Rate FiO2 07/26/16 08:37 Nasal Cannula 2.00 07/26/16 08:00 98.1 104 16 110/57 93 07/26/16 00:03 96.0 97 21 131/60 91 07/25/16 21:26 Nasal Cannula 2.00 07/25/16 20:50 96 Nasal Cannula 3.00 07/25/16 20:00 96.8 83 21 125/58 95 07/25/16 15:00 97.0 82 16 105/55 95 07/25/16 12:00 95.5 80 16 92/46 92 I/O 07/25/16 07/25/16 07/25/16 07/26/16 07/26/16 07/26/16 07:00 15:00 23:00 07:00 15:00 23:00 Intake Total 992 ml 1074 ml 0 ml 0 ml Output Total 0 ml 0 ml 200 ml Balance 992 ml 1074 ml -200 ml 0 ml Intake Oral 0 ml 0 ml 0 ml IV Total 992 ml 1074 ml Output Urine Total 200 ml Gastric Drainage Total 0 ml 0 ml # Voids 3 3 1 3 # Bowel Movements 0 0 0 0 Result Diagram: 07/26/16 0645 07/26/16 0645 Objective Remarks GENERAL: in NAD NG in placed but very anxious CARDIOVASCULAR: Regular rate and rhythm without murmurs, gallops, or rubs. RESPIRATORY: Breath sounds equal bilaterally. No accessory muscle use. GASTROINTESTINAL: Abdomen soft, mild tenderness palpation at the incision line, nondistended. Incision dry clean and intact. binder in place MUSCULOSKELETAL: No cyanosis, or edema. BACK: Nontender without obvious deformity. No CVA tenderness. Medications and IVs Current Medications Ondansetron HCl (Zofran Inj) 4 mg ONCE ONCE IVP Last administered on t 11:58; Start 07/21/16 at 11:15; Stop 07/21/16 at 11:16; Status DC Sodium Chloride 2 ml 2 ml UNSCH PRN IV FLUSH FLUSH AFTER USING IV ACCESS Last administered on 07/21/16 15:13; Start 07/21/16 at 11:15; Stop 07/21/16 at 15:23 ; Status DC Sodium Chloride (NS 500 ml Inj) 500 ml @ 500 mls/hr BOLUS ONCE IV Last administered on 07/21/16 11:58; Start 07/21/16 at 11:15; Stop 07/21/16 at 12:14 ; Status DC Diatrizoate Meglum/ Diatrizoate Sod ( Gastroview Liq) 18 ml STK-MED ONCE .ROUTE Last administered on 07/21/16 12:01; Start 07/21/16 at 11:41; Stop at 11:42; Status DC Iohexol (Omnipaque 350 Inj) 75 ml STK-MED ONCE IV Last administered on 13:06; Start 07/21/16 at 13:06; Stop 07/21/16 at 13:07; Status DC Lidocaine HCl (Xylocaine 2% Jelly) 1 applic ONCE ONCE TOPICAL Last administered on 07/21/16 15:13; Start 07/21/16 at 14:30; Stop 07/21/16 at 14:31 ; Status DC Lorazepam (Ativan Inj) 0.25 mg ONCE ONCE IV PUSH Last administered on 15:13; Start 07/21/16 at 15:15; Stop 07/21/16 at 15:16; Status DC Sodium Chloride (NS Flush) 2 ml UNSCH PRN IV FLUSH FLUSH AFTER USING IV ACCESS ; Start 07/21/16 at 15:15 Sodium Chloride (NS Flush) 2 ml BID IV FLUSH Last administered on 07/25/16 21: 02; Start 07/21/16 at 21:00 Ondansetron HCl (Zofran Inj) 4 mg Q6H PRN IVP NAUSEA OR VOMITING Last administered on 07/23/16 22:49; Start 07/21/16 at 15:15 Naloxone HCl (Narcan Inj) 0.4 mg UNSCH PRN IV SEE LABEL COMMENTS; Start at 15:15; Stop 07/23/16 at 12:30; Status DC Senna/Docusate Sodium (Holli-Colace) 1 tab BID PO ; Start 07/21/16 at 21:00; Status Hold Magnesium Hydroxide (Milk Of Magnsiria Liq) 30 ml Q12H PRN PO MILD - MODERATE CONSTIPATION; Start 07/21/16 at 15:15; Status Hold Sennosides (Senokot) 17.2 mg Q12H PRN PO MODERATE - SEVERE CONSTIPATION; Start 07/21/16 at 15:15; Status Hold Bisacodyl (Dulcolax Supp) 10 mg DAILY PRN RECTAL SEVERE CONSITIPATION Last administered on 07/26/16 08:36; Start 07/21/16 at 15:15 Lactulose 30 ml 30 ml DAILY PRN PO SEVERE CONSITIPATION; Start 07/21/16 at 15: 15; Status Hold Dextrose/Sodium Chloride (D5W-1/2 NS 1000 ml Inj) 1,000 ml @ 125 mls/hr Q8H IV Last administered on 07/26/16 02:01; Start 07/21/16 at 15:15 Budesonide/ Formoterol Fumarate (Symbicort 80-4.5 Mcg Inh) 1 puff Q12HR INH Last administered on 07/26/16 08:36; Start 07/21/16 at 21:00 Albuterol/ Ipratropium (Duoneb Neb) 1 ampule Q4HR NEB PRN NEB SOB/WHEEZING Last administered on 07/25/16 02:43; Start 07/21/16 at 17:30 Metoprolol Tartrate 12.5 mg 12.5 mg Q12HR PO ; Start 07/21/16 at 21:00; Stop at 11:01; Status DC Sodium Chloride (NS 250 ml Inj) 250 ml @ 250 mls/hr BOLUS ONCE IV Last administered on 07/21/16 18:30; Start 07/21/16 at 17:30; Stop 07/21/16 at 18:29 ; Status DC Miscellaneous (Pill Splitter) 1 ea UNSCH PRN OTHER SEE LABEL COMMENTS; Start at 17:30 Phenol (Chloraseptic [place]) 2 spray Q2H PRN OROPHARYNG sore throat; Start 07/21 at 22:00; Stop 07/25/16 at 11:31; Status DC Morphine Sulfate (Morphine Inj) 2 mg Q3H PRN IV PUSH PAIN Last administered on 07/24/16 03:22; Start 07/21/16 at 22:00; Stop 07/24/16 at 11:25; Status DC Diphenhydramine HCl (Benadryl Inj) 25 mg Q6H PRN IV PUSH itching/rash Last administered on 07/23/16 12:25; Start 07/21/16 at 22:00 Gentamicin Sulfate 240 mg 240 mg STK-MED ONCE .ROUTE ; Start 07/22/16 at 13:11; Stop 07/22/16 at 13:12; Status DC Ciprofloxacin/ Dextrose 200 ml @ As Directed STK-MED ONCE .ROUTE Last administered on 07/22/16 14:07; Start 07/22/16 at 13:31; Stop 07/22/16 at 13:32 ; Status DC Metronidazole (Flagyl 500 Mg Inj) 100 ml @ As Directed STK-MED ONCE IV Last administered on 07/22/16 14:08; Start 07/22/16 at 13:31; Stop 07/22/16 at 13:32 ; Status DC Famotidine (Pepcid Inj) 20 mg STK-MED ONCE .ROUTE ; Start 07/22/16 at 13:32; Stop 07/22/16 at 13:33; Status DC Midazolam HCl (Versed Inj) 2 mg STK-MED ONCE .ROUTE ; Start 07/22/16 at 13:33; Stop 07/22/16 at 13:34; Status DC Famotidine (Pepcid Inj) 20 mg STK-MED ONCE IV PUSH Last administered on 13:36; Start 07/22/16 at 13:36; Stop 07/22/16 at 14:00; Status DC Midazolam HCl (Versed Inj) 2 mg STK-MED ONCE IV PUSH Last administered on 13:36; Start 07/22/16 at 13:36; Stop 07/22/16 at 14:00; Status DC Sugammadex Sodium (Bridion Inj) 200 mg STK-MED ONCE IV PUSH ; Start 07/22/16 at 17:15; Stop 07/22/16 at 17:16; Status DC Pantoprazole Sodium (Protonix Inj) 40 mg Q24H IV PUSH Last administered on 07/25 17:12; Start 07/22/16 at 18:00 Neostigmine Methylsulfate (Prostigmin Inj) 10 mg STK-MED ONCE .ROUTE ; Start at 17:59; Stop 07/22/16 at 18:00; Status DC Glycopyrrolate (Robinul Inj) 0.2 mg STK-MED ONCE .ROUTE ; Start 07/22/16 at 17: 59; Stop 07/22/16 at 18:00; Status DC Morphine Sulfate (*morphine INJ PERIprocedure ONLY) 8 mg STK-MED ONCE .ROUTE Last administered on 07/22/16 18:10; Start 07/22/16 at 18:10; Stop 07/22/16 at 18:11; Status DC Miscellaneous Information ALL NURSING DEPARTME... UNSCH PRN .XX SEE LABEL COMMENTS; Start 07/22/16 at 18:05; Stop 07/23/16 at 18:04; Status DC Fentanyl Citrate (fentaNYL INJ) 250 mcg STK-MED ONCE .ROUTE ; Start 07/22/16 at 19:05; Stop 07/22/16 at 19:06; Status DC Morphine Sulfate (Morphine Inj) 4 mg ONCE ONCE IV PUSH Last administered on 22:31; Start 07/22/16 at 22:30; Stop 07/22/16 at 22:31; Status DC Morphine Sulfate 4 mg 4 mg ONCE ONCE IV PUSH Last administered on 07/23/16 04 :26; Start 07/23/16 at 04:00; Stop 07/23/16 at 04:09; Status DC Calcium Gluconate/ Sodium Chloride (Calcium Gluconate Inj/NS Inj) 110 ml @ 110 mls/hr ONCE ONCE IV Last administered on 07/23/16 11:11; Start 07/23/16 at 10 :00; Stop 07/23/16 at 10:59; Status DC Carvedilol (Coreg) 3.125 mg BID PO Last administered on 07/25/16 21:01; Start 07/23/16 at 21:00 Pravastatin Sodium (Pravachol) 10 mg DAILY PO Last administered on 07/26/16 08 :37; Start 07/24/16 at 11:00 Padimate O (Chapstick) 1 applic UNSCH PRN TOPICAL dry lips; Start 07/23/16 at 11:30 Naloxone HCl (Narcan Inj) 0.4 mg UNSCH PRN IV RESPIRATORY RATE LESS THAN 10; Start 07/23/16 at 12:15 Morphine Sulfate (Morphine 1 Mg/ ml FNP) 30 mg UNSCH IV Last administered on 14:40; Start 07/23/16 at 12:30; Stop 07/23/16 at 16:36; Status DC FNP Dosage Infused (Pha) 1 Q8HR .XX Last administered on 07/23/16 14:00; Start 07/23/16 at 14:00 Non-Formulary Medication INJECT 12.5MG IM ... Q6H PRN IM NAUSEA; Start at 23:30 Calcium Gluconate/ Sodium Chloride (Calcium Gluconate Inj/NS Inj) 110 ml @ 110 mls/hr ONCE ONCE IV Last administered on 07/24/16 10:13; Start 07/24/16 at 09 :00; Stop 07/24/16 at 09:59; Status DC Hydromorphone HCl 0.5 mg 0.5 mg Q4H PRN IV PUSH severe pain Last administered on 07/26/16 04:05; Start 07/24/16 at 12:00 Calcium Gluconate/ Sodium Chloride (Calcium Gluconate Inj/NS Inj) 110 ml @ 110 mls/hr ONCE ONCE IV Last administered on 07/25/16 11:41; Start 07/25/16 at 09 :00; Stop 07/25/16 at 09:59; Status DC Phenol (Chloraseptic [place]) 2 spray Q2H PRN OROPHARYNG sore throat Last administered on 07/25/16 18:52; Start 07/25/16 at 09:30 Bisacodyl (Dulcolax Supp) 10 mg ONCE ONCE RECTAL Last administered on 11:41; Start 07/25/16 at 12:00; Stop 07/25/16 at 12:01; Status DC Lorazepam (Ativan) 1 mg ONCE ONCE PO ; Start 07/26/16 at 09:00; Stop 07/26/16 at 09:01; Status DC Lorazepam (Ativan) 0.5 mg Q8H PRN PO anxiety; Start 07/26/16 at 08:45 Mirtazapine (Remeron) 15 mg HS PO ; Start 07/26/16 at 21:00 A/P Assessment and Plan //Small bowel obstruction -CT abdomen showed dilated small bowel loops, distended stomach. -NG tube to low intermittent suction. -Antiemetics as necessary -Status post exploratory laparotomy with lysis of adhesions on 07/22/[address] Galindo. -Per GS awaiting bowel movement before NG can be removed. -Gen. surgery recommended a suppository and if there is a bowel movement can remove NG. Patient did not have a bowel movement. Will try another suppository. //SIRS criteria -Tachycardia could be secondary to beta joya withdrawal. -Improved with treatment. //Hyperkalemia. Potassium 5.4. Slight hemolysis noted. Repeat showed resolution. //CHF. //Hyperlipidemia -Chronic low blood pressure in the hospital with systolics 80s to 90s. -Gentle IV fluids with improvement of blood pressure. This is most likely patient's baseline. -Continue home medication. //COPD. -Duo nebs when necessary. Continue Symbicort. Oxygen as necessary Incentive spirometry and Acapella. //Anxiety -Patient is usually on mirtazapine which was not started. Will restart her home medication. We'll give Ativan when necessary. //Prophylaxis. SCDs. Anticoagulation As per surgical service d/w patient's nurse. Discharge Planning awaiting bowels to wake up before removing NG and allowing PO intake. Génseis Montelongo MD Jul 26, 2016 09:15
--- NOTE | 2016-07-26 11:34 | HHI.PR ---
Subjective Subjective Notes Reports some flatus NG bothers her Anxious this morning Objective Vitals/I&O Vital Signs Date Time Temp Pulse Resp B/P Pulse Ox O2 Delivery O2 Flow Rate FiO2 07/26/16 08:37 Nasal Cannula 2.00 07/26/16 08:00 98.1 104 16 110/57 93 Labs Laboratory Tests Test 07/26/16 06:45 White Blood Count 10.5 Red Blood Count 3.55 Hemoglobin 10.4 Hematocrit 31.6 Mean Corpuscular Volume 89.0 Mean Corpuscular Hemoglobin 29.3 Mean Corpuscular Hemoglobin 32.9 Concent Red Cell Distribution Width 14.2 Platelet Count 238 Mean Platelet Volume 8.0 Sodium Level 137 Potassium Level 3.2 Chloride Level 98 Carbon Dioxide Level 33.7 Anion Gap 5 Blood Urea Nitrogen 2 Creatinine 0.32 Estimat Glomerular Filtration 200 Rate Random Glucose 122 Calcium Level 8.3 Radiology Last 48 hours Impressions Abdomen/Pelvis CT 07/21/16 1107 Signed Impressions: Service Date/Time: Thursday, July 21, 2016 12:54 - CONCLUSION: 1. Multiple fluid-filled dilated loops of jejunum suggesting distal jejunal or proximal ileal small bowel obstruction. Clinical correlation is recommended. 2. Degenerative changes and scoliosis of the lumbar spine. 3. Diffuse sclerosis involving the left symphysis pubis as well as the anterior portion of the left inferior pubic ramus. 4. Stable 2.1 cm right renal cyst. Maurisio Mcleod MD Chest X-Ray 07/21/16 0000 Signed Impressions: Service Date/Time: Thursday, July 21, 2016 12:18 - CONCLUSION: COPD. No evidence of acute cardiopulmonary process. Rosendo Marquez MD Lungs: Clear Abdomen: Non-distended, Other ([place] dry and intact; no erythema), Post-op tenderness A/P Assessment and Plan 75 year old female PO ex lap; SOFÍA; SBR with primary anastomosis -NPO; okay for swabs -Await bowel function to start PO intake -NGT d/c'd -IVF -Pain control Carlos Galindo MD Jul 26, 2016 11:34
[2016-07-26 12:00] VITALS: BP 146/79; PULSE 91; RESP 17; TEMP 95.8; O2SAT 93
[2016-07-26] MEDS: POTASSIUM CHLOR 20 MEQ PREMIX 100 ML IV SCH ×2 (12:00→14:00)
[2016-07-26 16:00] VITALS: BP 127/64; PULSE 96; RESP 16; TEMP 96.4; O2SAT 93
[2016-07-26] MEDS: PANTOPRAZOLE SODIUM 40 MG VIAL IV PUSH SCH (16:54)
[2016-07-26 20:00] VITALS: BP 103/59; PULSE 82; RESP 18; TEMP 96.6; O2SAT 92
[2016-07-26] MEDS: MIRTAZAPINE 15 MG TAB PO SCH (20:14)
[2016-07-26 21:39] VITALS: O2SAT 96
[2016-07-27] VITALS (10 sets, daily range): BP systolic 109–155; BP diastolic 55–70; PULSE 79–106; RESP 18–24; TEMP 95.3–98.7; O2SAT 90–95
[2016-07-27 04:08] LABS: HEMATOCRIT 32.9 % (35.0-46.0); MEAN CELL VOLUME 91.2 FL (80.0-100.0); MEAN CORPUSCULAR HEMOGLOBIN 29.4 PG (27.0-34.0); MEAN CORPUSCULAR HGB CONC 32.2 % (32.0-36.0); PLATELET COUNT 189 TH/MM3 (150-450); RED BLOOD COUNT 3.61 MIL/MM3 (4.00-5.30); RED CELL DISTRIBUTION WIDTH 14.8 % (11.6-17.2); REVIEW FLAG FINAL; WHITE BLOOD COUNT 8.5 TH/MM3 (4.0-11.0)
[2016-07-27 04:26] LABS: ANION GAP 5 MEQ/L (5-15); BICARBONATE 35.1 MEQ/L (21.0-32.0); BLOOD UREA NITROGEN LESS THAN 1 MG/DL (7-18); CHLORIDE 97 MEQ/L (98-107); GLOMERULAR FILTRATION RATE 389 ML/MIN (>89); POTASSIUM 3.4 MEQ/L (3.5-5.1); SODIUM (NA) 137 MEQ/L (136-145)
[2016-07-27] MEDS: DEXT 5%-NACL 0.45% 1000 ML INJ 1,000 ML IV SCH (04:53)
[2016-07-27] MEDS: PCA - TOTAL MG MORPHINE DELIVERED PER SHIFT SCH ×3 (06:00→21:34)
[2016-07-27] MEDS: CARVEDILOL 3.125 MG TAB PO SCH ×2 (09:00→21:45)
[2016-07-27] MEDS: PRAVASTATIN SOD 10 MG TAB PO SCH (09:00)
[2016-07-27] MEDS: CALCIUM CARBONATE 500 MG CHEWABLE TAB CHEW SCH ×2 (09:00→21:45)
--- NOTE | 2016-07-27 09:17 | HHI.PR ---
Subjective Remarks Follow-up for small bowel obstruction Patient has increased shortness of breathing with increased use of oxygen. Patient unable to speak much due to shortness of breathing. Nurses at the bedside. She stated that patient started to have increased shortness of breathing at night. Positive for feeling nauseous. Denying abdominal pain. Patient shook her head when I asked if she had a bowel movement. Objective Vitals Vital Signs Date Time Temp Pulse Resp B/P Pulse Ox O2 Delivery O2 Flow Rate FiO2 07/27/16 08:00 98.1 90 23 109/65 90 07/27/16 04:00 95.7 106 20 131/70 92 07/27/16 02:49 97.0 82 20 112/68 92 07/27/16 01:49 97.5 84 20 113/55 94 07/27/16 00:40 97.3 81 20 120/59 94 07/27/16 00:00 95.3 79 20 136/64 93 07/26/16 21:39 96 Nasal Cannula 2.00 07/26/16 20:00 96 Nasal Cannula 2.00 07/26/16 20:00 96.6 82 18 103/59 92 07/26/16 16:00 96.4 96 16 127/64 93 07/26/16 13:00 Nasal Cannula 2.00 07/26/16 12:00 95.8 91 17 146/79 93 I/O 07/26/16 07/26/16 07/26/16 07/27/16 07/27/16 07/27/16 07:00 15:00 23:00 07:00 15:00 23:00 Intake Total 0 ml 2701 ml 0 ml 0 ml Output Total 600 ml 600 ml Balance 0 ml 2101 ml 0 ml -600 ml Intake Oral 0 ml 0 ml 0 ml 0 ml IV Total 2701 ml Output Urine Total 600 ml 600 ml # Voids 3 2 # Bowel Movements 0 0 0 0 Result Diagram: 07/27/16 0335 07/27/16334 Objective Remarks GENERAL: in respiratory distressed. CARDIOVASCULAR: Regular rate and rhythm without murmurs, gallops, or rubs. RESPIRATORY: Difficulty in hearing bilaterally sounds due to shallow breathing. No accessory muscle use. GASTROINTESTINAL: Abdomen soft, mild tenderness palpation at the incision line, nondistended. Incision dry clean and intact. binder in place MUSCULOSKELETAL: No cyanosis, or edema. BACK: Nontender without obvious deformity. No CVA tenderness. Medications and IVs Current Medications Ondansetron HCl (Zofran Inj) 4 mg ONCE ONCE IVP Last administered on 11:58; Start 07/21/16 at 11:15; Stop 07/21/16 at 11:16; Status DC Sodium Chloride 2 ml 2 ml UNSCH PRN IV FLUSH FLUSH AFTER USING IV ACCESS Last administered on 07/21/16 15:13; Start 07/21/16 at 11:15; Stop 07/21/16 at 15:23 ; Status DC Sodium Chloride (NS 500 ml Inj) 500 ml @ 500 mls/hr BOLUS ONCE IV Last administered on 07/21/16 11:58; Start 07/21/16 at 11:15; Stop 07/21/16 at 12:14 ; Status DC Diatrizoate Meglum/ Diatrizoate Sod ( Gastroview Liq) 18 ml STK-MED ONCE .ROUTE Last administered on 07/21/16 12:01; Start 07/21/16 at 11:41; Stop at 11:42; Status DC Iohexol (Omnipaque 350 Inj) 75 ml STK-MED ONCE IV Last administered on 13:06; Start 07/21/16 at 13:06; Stop 07/21/16 at 13:07; Status DC Lidocaine HCl (Xylocaine 2% Jelly) 1 applic ONCE ONCE TOPICAL Last administered on 07/21/16 15:13; Start 07/21/16 at 14:30; Stop 07/21/16 at 14:31 ; Status DC Lorazepam (Ativan Inj) 0.25 mg ONCE ONCE IV PUSH Last administered on 15:13; Start 07/21/16 at 15:15; Stop 07/21/16 at 15:16; Status DC Sodium Chloride (NS Flush) 2 ml UNSCH PRN IV FLUSH FLUSH AFTER USING IV ACCESS ; Start 07/21/16 at 15:15 Sodium Chloride (NS Flush) 2 ml BID IV FLUSH Last administered on 07/26/16 20: 14; Start 07/21/16 at 21:00 Ondansetron HCl (Zofran Inj) 4 mg Q6H PRN IVP NAUSEA OR VOMITING Last administered on 07/23/16 22:49; Start 07/21/16 at 15:15 Naloxone HCl (Narcan Inj) 0.4 mg UNSCH PRN IV SEE LABEL COMMENTS; Start at 15:15; Stop 07/23/16 at 12:30; Status DC Senna/Docusate Sodium (Holli-Colace) 1 tab BID PO ; Start 07/21/16 at 21:00; Status Hold Magnesium Hydroxide (Milk Of Magnesia Liq) 30 ml Q12H PRN PO MILD - MODERATE CONSTIPATION; Start 07/21/16 at 15:15; Status Hold Sennosides (Senokot) 17.2 mg Q12H PRN PO MODERATE - SEVERE CONSTIPATION; Start 07/21/16 at 15:15; Status Hold Bisacodyl (Dulcolax Supp) 10 mg DAILY PRN RECTAL SEVERE CONSITIPATION Last administered on 07/26/16 08:36; Start 07/21/16 at 15:15 Lactulose 30 ml 30 ml DAILY PRN PO SEVERE CONSITIPATION; Start 07/21/16 at 15: 15; Status Hold Dextrose/Sodium Chloride (D5W-1/2 NS 1000 ml Inj) 1,000 ml @ 100 mls/hr Q10H IV Last administered on 07/26/16 09:26; Start 07/21/16 at 15:15; Status Hold Budesonide/ Formoterol Fumarate (Symbicort 80-4.5 Mcg Inh) 1 puff Q12HR INH Last administered on 07/26/16 20:15; Start 07/21/16 at 21:00 Albuterol/ Ipratropium (Duoneb Neb) 1 ampule Q4HR NEB PRN NEB SOB/WHEEZING Last administered on 07/25/16 02:43; Start 07/21/16 at 17:30 Metoprolol Tartrate 12.5 mg 12.5 mg Q12HR PO ; Start 07/21/16 at 21:00; Stop at 11:01; Status DC Sodium Chloride (NS 250 ml Inj) 250 ml @ 250 mls/hr BOLUS ONCE IV Last administered on 07/21/16 18:30; Start 07/21/16 at 17:30; Stop 07/21/16 at 18:29 ; Status DC Miscellaneous (Pill Splitter) 1 ea UNSCH PRN OTHER SEE LABEL COMMENTS; Start at 17:30 Phenol (Chloraseptic [place]) 2 spray Q2H PRN OROPHARYNG sore throat; Start 07/21 at 22:00; Stop 07/25/16 at 11:31; Status DC Morphine Sulfate (Morphine Inj) 2 mg Q3H PRN IV PUSH PAIN Last administered on 07/24/16 03:22; Start 07/21/16 at 22:00; Stop 07/24/16 at 11:25; Status DC Diphenhydramine HCl (Benadryl Inj) 25 mg Q6H PRN IV PUSH itching/rash Last administered on 07/23/16 12:25; Start 07/21/16 at 22:00 Gentamicin Sulfate 240 mg 240 mg STK-MED ONCE .ROUTE ; Start 07/22/16 at 13:11; Stop 07/22/16 at 13:12; Status DC Ciprofloxacin/ Dextrose 200 ml @ As Directed STK-MED ONCE .ROUTE Last administered on 07/22/16 14:07; Start 07/22/16 at 13:31; Stop 07/22/16 at 13:32 ; Status DC Metronidazole (Flagyl 500 Mg Inj) 100 ml @ As Directed STK-MED ONCE IV Last administered on 07/22/16 14:08; Start 07/22/16 at 13:31; Stop 07/22/16 at 13:32 ; Status DC Famotidine (Pepcid Inj) 20 mg STK-MED ONCE .ROUTE ; Start 07/22/16 at 13:32; Stop 07/22/16 at 13:33; Status DC Midazolam HCl (Versed Inj) 2 mg STK-MED ONCE .ROUTE ; Start 07/22/16 at 13:33; Stop 07/22/16 at 13:34; Status DC Famotidine (Pepcid Inj) 20 mg STK-MED ONCE IV PUSH Last administered on 13:36; Start 07/22/16 at 13:36; Stop 07/22/16 at 14:00; Status DC Midazolam HCl (Versed Inj) 2 mg STK-MED ONCE IV PUSH Last administered on 13:36; Start 07/22/16 at 13:36; Stop 07/22/16 at 14:00; Status DC Sugammadex Sodium (Bridion Inj) 200 mg STK-MED ONCE IV PUSH ; Start 07/22/16 at 17:15; Stop 07/22/16 at 17:16; Status DC Pantoprazole Sodium (Protonix Inj) 40 mg Q24H IV PUSH Last administered on 07/26 16:54; Start 07/22/16 at 18:00 Neostigmine Methylsulfate (Prostigmin Inj) 10 mg STK-MED ONCE .ROUTE ; Start at 17:59; Stop 07/22/16 at 18:00; Status DC Glycopyrrolate (Robinul Inj) 0.2 mg STK-MED ONCE .ROUTE ; Start 07/22/16 at 17: 59; Stop 07/22/16 at 18:00; Status DC Morphine Sulfate (*morphine INJ PERIprocedure ONLY) 8 mg STK-MED ONCE .ROUTE Last administered on 07/22/16 18:10; Start 07/22/16 at 18:10; Stop 07/22/16 at 18:11; Status DC Miscellaneous Information ALL NURSING DEPARTME... UNSCH PRN .XX SEE LABEL COMMENTS; Start 07/22/16 at 18:05; Stop 07/23/16 at 18:04; Status DC Fentanyl Citrate (fentaNYL INJ) 250 mcg STK-MED ONCE .ROUTE ; Start 07/22/16 at 19:05; Stop 07/22/16 at 19:06; Status DC Morphine Sulfate (Morphine Inj) 4 mg ONCE ONCE IV PUSH Last administered on 22:31; Start 07/22/16 at 22:30; Stop 07/22/16 at 22:31; Status DC Morphine Sulfate 4 mg 4 mg ONCE ONCE IV PUSH Last administered on 07/23/16 04 :26; Start 07/23/16 at 04:00; Stop 07/23/16 at 04:09; Status DC Calcium Gluconate/ Sodium Chloride (Calcium Gluconate Inj/NS Inj) 110 ml @ 110 mls/hr ONCE ONCE IV Last administered on 07/23/16 11:11; Start 07/23/16 at 10 :00; Stop 07/23/16 at 10:59; Status DC Carvedilol (Coreg) 3.125 mg BID PO Last administered on 07/26/16 20:14; Start 07/23/16 at 21:00 Pravastatin Sodium (Pravachol) 10 mg DAILY PO Last administered on 07/26/16 08 :37; Start 07/24/16 at 11:00 Padimate O (Chapstick) 1 applic UNSCH PRN TOPICAL dry lips; Start 07/23/16 at 11:30 Naloxone HCl (Narcan Inj) 0.4 mg UNSCH PRN IV RESPIRATORY RATE LESS THAN 10; Start 07/23/16 at 12:15 Morphine Sulfate (Morphine 1 Mg/ ml OSTEOPATHIC RESIDENT) 30 mg UNSCH IV Last administered on 14:40; Start 07/23/16 at 12:30; Stop 07/23/16 at 16:36; Status DC OSTEOPATHIC RESIDENT Dosage Infused (Pha) 1 Q8HR .XX Last administered on 07/23/16 14:00; Start 07/23/16 at 14:00 Non-Formulary Medication INJECT 12.5MG IM ... Q6H PRN IM NAUSEA; Start at 23:30 Calcium Gluconate/ Sodium Chloride (Calcium Gluconate Inj/NS Inj) 110 ml @ 110 mls/hr ONCE ONCE IV Last administered on 07/24/16 10:13; Start 07/24/16 at 09 :00; Stop 07/24/16 at 09:59; Status DC Hydromorphone HCl 0.5 mg 0.5 mg Q4H PRN IV PUSH severe pain Last administered on 07/26/16 04:05; Start 07/24/16 at 12:00 Calcium Gluconate/ Sodium Chloride (Calcium Gluconate Inj/NS Inj) 110 ml @ 110 mls/hr ONCE ONCE IV Last administered on 07/25/16 11:41; Start 07/25/16 at 09 :00; Stop 07/25/16 at 09:59; Status DC Phenol (Chloraseptic [place]) 2 spray Q2H PRN OROPHARYNG sore throat Last administered on 07/25/16 18:52; Start 07/25/16 at 09:30 Bisacodyl (Dulcolax Supp) 10 mg ONCE ONCE RECTAL Last administered on 11:41; Start 07/25/16 at 12:00; Stop 07/25/16 at 12:01; Status DC Lorazepam (Ativan) 1 mg ONCE ONCE PO Last administered on 07/26/16 09:27; Start 07/26/16 at 09:00; Stop 07/26/16 at 09:01; Status DC Lorazepam (Ativan) 0.5 mg Q8H PRN PO anxiety; Start 07/26/16 at 08:45 Mirtazapine 15 mg 15 mg HS PO Last administered on 07/26/16 20:14; Start 07/26 at 21:00 Potassium Chloride (KCl 20 Meq Premix Inj) 100 ml @ 50 mls/hr Q2H IV Last administered on 07/26/16 14:00; Start 07/26/16 at 12:00; Stop 07/26/16 at 15:59 ; Status DC Calcium Carbonate (Tums Chew) 500 mg Q12HR CHEW ; Start 07/27/16 at 09:00 A/P Assessment and Plan Respiratory failure -Patient's requiring increased oxygen use with increasing respiration. -Will get a stat chest x-ray and BNP. -Transferred to [facility] [place] monitoring. -At the moment nebulizer where PRN, will change to scheduled DuoNeb's. -Start Solu-Medrol. -Hold IV fluids pending further workup. -Labs reviewed and stable. -Further management pending workup. -Dealt with charge nurse and patient's nurse in regards to plan. //Small bowel obstruction -CT abdomen showed dilated small bowel loops, distended stomach. -Antiemetics as necessary -Status post exploratory laparotomy with lysis of adhesions on 07/22/[address] Galindo. -Per GS awaiting bowel movement before NG can be removed. -Gen. surgery recommended a suppository and if there is a bowel movement can remove NG. Patient did not have a bowel movement. Will try another suppository. //SIRS criteria -Tachycardia could be secondary to beta joya withdrawal. -Improved with treatment. //Hyperkalemia. Potassium 5.4. Slight hemolysis noted. Repeat showed resolution. //CHF. //Hyperlipidemia -Chronic low blood pressure in the hospital with systolics 80s to 90s. -Gentle IV fluids with improvement of blood pressure. This is most likely patient's baseline. -Continue home medication. //COPD. -Duo nebs changed to scheduled. Continue Symbicort. Oxygen as necessary Incentive spirometry and Acapella. //Anxiety -Patient is usually on mirtazapine which was not started. On Ativan when necessary. //Prophylaxis. SCDs. Anticoagulation As per surgical service Discharge Planning Due to increased dyspnea will need transfer to [facility] for closer monitoring. d/ w charge nurse and patient's nurse. Génesis Montelongo MD Jul 27, 2016 09:17
[2016-07-27] MEDS: SODIUM CHLORIDE 0.9% FLUSH 10 ML FLUSH IV FLUSH SCH ×2 (09:39→21:45)
[2016-07-27] MEDS: BUDESONIDE-FORMOTEROL 80/4.5 MCG INHALER INH SCH ×2 (09:39→21:46)
[2016-07-27] MEDS: RESP: ALBUTEROL 2.5 MG/IPRATROPIUM 0.5 MG NEB (SCH) NEB ×4 (09:43→19:47)
--- NOTE | 2016-07-27 09:56 | RADRPT ---
EXAM DATE/TIME: 07/27/2016 09:11 [facility] COMPARISON: CHEST SINGLE AP, July 22, 2016, 17:58. INDICATIONS : Short of breath. MEDICAL HISTORY : Congestive heart failure. Hypertension Chronic obstructive pulmonary disease. cervical and colon cancer SURGICAL HISTORY : Hysterectomy. back surgery ENCOUNTER: Initial ACUITY: 4 - 6 days PAIN SCORE: Non-responsive. LOCATION: Bilateral chest FINDINGS: Single view chest demonstrates a heart beat normal in size. There is diffuse chronic interstitial isabella nges within the pulmonary parenchyma. These are stable compared to previous examination. No pleural e ffusion is identified. No focal or segmental pneumonia is evident. The bony structures demonstrate old healed fractures of the third and fourth lateral on the right. CONCLUSION: 1. COPD changes. No acute abnormality identified. Matthew Tineo MD on July 27, 2016 at 9:53 Board Certified Radiologist. This report was verified electronically.
[2016-07-27] MEDS: methylPREDNISolone SOD SUCC 40 MG/1 ML VIAL IV PUSH SCH ×3 (11:06→21:45)
--- NOTE | 2016-07-27 14:57 | HHI.PR ---
Subjective Subjective Notes Patient resting in bed Thirsty Abdominal binder re-positioned with ROSE Barroso Objective Vitals/I&O Vital Signs Date Time Temp Pulse Resp B/P Pulse Ox O2 Delivery O2 Flow Rate FiO2 07/27/16 12:00 95.9 94 24 119/56 90 07/27/16 09:45 Nasal Cannula 3.00 Labs Laboratory Tests Test 07/27/16 03:35 White Blood Count 8.5 Red Blood Count 3.61 Hemoglobin 10.6 Hematocrit 32.9 Mean Corpuscular Volume 91.2 Mean Corpuscular Hemoglobin 29.4 Mean Corpuscular Hemoglobin 32.2 Concent Red Cell Distribution Width 14.8 Platelet Count 189 Mean Platelet Volume 8.1 Hematology Comments Sodium Level 137 Potassium Level 3.4 Chloride Level 97 Carbon Dioxide Level 35.1 Anion Gap 5 Blood Urea Nitrogen LESS THAN 1 Creatinine 0.18 Estimat Glomerular Filtration 389 Rate Random Glucose 119 Calcium Level 8.4 B-Type Natriuretic Peptide 298 Radiology Last 48 hours Impressions Abdomen/Pelvis CT 07/21/16 1107 Signed Impressions: Service Date/Time: Thursday, July 21, 2016 12:54 - CONCLUSION: 1. Multiple fluid-filled dilated loops of jejunum suggesting distal jejunal or proximal ileal small bowel obstruction. Clinical correlation is recommended. 2. Degenerative changes and scoliosis of the lumbar spine. 3. Diffuse sclerosis involving the left symphysis pubis as well as the anterior portion of the left inferior pubic ramus. 4. Stable 2.1 cm right renal cyst. Maurisio Mcleod MD Chest X-Ray 07/21/16 0000 Signed Impressions: Service Date/Time: Thursday, July 21, 2016 12:18 - CONCLUSION: COPD. No evidence of acute cardiopulmonary process. Rosendo Marquez MD Cardiovascular: Regular Lungs: Wheezes Abdomen: Other (incision c/d/i; Abdominal binder reposition to proper positioning ) Extremities: No edema Narrative Exam NGT removed A/P Assessment and Plan 75 year old female POD5 ex lap; SOFÍA; SBR with primary anastomosis -Start sips of clears -NGT removed -Lasix x 1 dose -Replace K -Pain control -[place] at bedside Attending Note - Dr. Galindo Had anxiety this AM; better now Tolerating clears; will advance to full liquids tomorrow The exam, history, and the medical decision-making described in the above note were completed with the assistance of the mid-level provider. I reviewed and agree with the findings presented. I attest that I had a [id number] encounter with the patient on the same day, and personally performed and documented my assessment and findings in the medical record. Evelyn Hill Jul 27, 2016 14:56 Carlos Galindo MD Jul 28, 2016 12:40
[2016-07-27] MEDS ORDERED: FUROSEMIDE 40 MG/4 ML VIAL IV PUSH ONE (15:00)
[2016-07-27] MEDS: POTASSIUM CHLOR 20 MEQ PREMIX 100 ML IV SCH ×2 (17:00→17:04)
[2016-07-27] MEDS: PANTOPRAZOLE SODIUM 40 MG VIAL IV PUSH SCH (17:04)
[2016-07-27] MEDS: MIRTAZAPINE 15 MG TAB PO SCH (21:45)
[2016-07-27] MEDS ORDERED: POTASSIUM CHLOR 20 MEQ PREMIX 100 ML IV ONE (22:00)
[2016-07-28] VITALS (9 sets, daily range): BP systolic 127–142; BP diastolic 59–65; PULSE 85–92; RESP 18–22; TEMP 95.6–98.4; O2SAT 90–97
[2016-07-28] MEDS: RESP: ALBUTEROL 2.5 MG/IPRATROPIUM 0.5 MG NEB (SCH) NEB ×7 (00:39→23:45)
[2016-07-28] MEDS: PCA - TOTAL MG MORPHINE DELIVERED PER SHIFT SCH ×4 (02:08→22:42)
[2016-07-28] MEDS: methylPREDNISolone SOD SUCC 40 MG/1 ML VIAL IV PUSH SCH ×2 (03:50→09:02)
[2016-07-28 05:36] LABS: HEMATOCRIT 30.6 % (35.0-46.0); MEAN CELL VOLUME 88.6 FL (80.0-100.0); MEAN CORPUSCULAR HEMOGLOBIN 29.6 PG (27.0-34.0); MEAN CORPUSCULAR HGB CONC 33.4 % (32.0-36.0); PLATELET COUNT 232 TH/MM3 (150-450); RED BLOOD COUNT 3.45 MIL/MM3 (4.00-5.30); RED CELL DISTRIBUTION WIDTH 14.6 % (11.6-17.2); REVIEW FLAG FINAL; WHITE BLOOD COUNT 5.9 TH/MM3 (4.0-11.0)
[2016-07-28 05:58] LABS: BICARBONATE 41.3 MEQ/L (21.0-32.0)
[2016-07-28] MEDS: POTASSIUM CHLORIDE 25 MEQ EFFERVESCENT TAB PO SCH ×2 (08:57→20:56)
[2016-07-28] MEDS: CALCIUM CARBONATE 500 MG CHEWABLE TAB CHEW SCH ×2 (08:57→20:56)
[2016-07-28] MEDS: BUDESONIDE-FORMOTEROL 80/4.5 MCG INHALER INH SCH ×2 (08:57→21:00)
[2016-07-28] MEDS: SODIUM CHLORIDE 0.9% FLUSH 10 ML FLUSH IV FLUSH SCH ×2 (08:57→20:57)
[2016-07-28] MEDS: PRAVASTATIN SOD 10 MG TAB PO SCH (08:58)
[2016-07-28] MEDS: CARVEDILOL 3.125 MG TAB PO SCH ×2 (08:58→20:56)
--- NOTE | 2016-07-28 09:47 | HHI.PR ---
Subjective Remarks f/u for SOB and SBO patient stated breathing has improved drastically. She also stated that her anxiety has improved. patient denied any SOB or cough. She stated she is tolerating the clear liquid diet. + flatus no BM yet. Abdominal pain is controlled. Objective Vitals Vital Signs Date Time Temp Pulse Resp B/P Pulse Ox O2 Delivery O2 Flow Rate FiO2 07/28/16 08:00 97.1 85 19 139/62 90 07/28/16 07:37 93 Nasal Cannula 3.00 07/28/16 04:00 Nasal Cannula 3.00 07/28/16 03:18 95 Nasal Cannula 3.00 07/28/16 00:41 94 Nasal Cannula 3.00 07/28/16 00:00 Nasal Cannula 3.00 07/28/16 00:00 98.4 92 18 127/59 92 07/27/16 20:00 Nasal Cannula 3.00 07/27/16 20:00 98.6 94 18 136/63 95 07/27/16 16:00 98.7 82 23 155/65 90 07/27/16 12:00 95.9 94 24 119/56 90 07/27/16 09:45 95 Nasal Cannula 3.00 07/27/16 09:39 Nasal Cannula 3.00 I/O 07/27/16 07/27/16 07/27/16 07/28/16 07/28/16 07/28/16 07:00 15:00 23:00 07:00 15:00 23:00 Intake Total 0 ml 0 ml 557 ml 120 ml Output Total 600 ml 950 ml 150 ml 300 ml Balance -600 ml -950 ml 407 ml -180 ml Intake Oral 0 ml 0 ml 240 ml 120 ml IV Total 317 ml Output Urine Total 600 ml 950 ml 150 ml 300 ml # Voids 1 1 2 # Bowel Movements 0 0 0 0 Result Diagram: 07/28/16 0438 07/28/16437 Objective Remarks GENERAL: In NAD CARDIOVASCULAR: Regular rate and rhythm without murmurs, gallops, or rubs. RESPIRATORY: CTA B/L No accessory muscle use. GASTROINTESTINAL: Abdomen soft, mild tenderness palpation at the incision line, nondistended. Incision dry clean and intact. binder in place MUSCULOSKELETAL: No cyanosis, or edema. BACK: Nontender without obvious deformity. No CVA tenderness. Medications and IVs Current Medications Ondansetron HCl (Zofran Inj) 4 mg ONCE ONCE IVP Last administered on 11:58; Start 07/21/16 at 11:15; Stop 07/21/16 at 11:16; Status DC Sodium Chloride 2 ml 2 ml UNSCH PRN IV FLUSH FLUSH AFTER USING IV ACCESS Last administered on 07/21/16 15:13; Start 07/21/16 at 11:15; Stop 07/21/16 at 15:23 ; Status DC Sodium Chloride (NS 500 ml Inj) 500 ml @ 500 mls/hr BOLUS ONCE IV Last administered on 07/21/16 11:58; Start 07/21/16 at 11:15; Stop 07/21/16 at 12:14 ; Status DC Diatrizoate Meglum/ Diatrizoate Sod ( Gastroview Liq) 18 ml STK-MED ONCE .ROUTE Last administered on 07/21/16 12:01; Start 07/21/16 at 11:41; Stop at 11:42; Status DC Iohexol (Omnipaque 350 Inj) 75 ml STK-MED ONCE IV Last administered on 13:06; Start 07/21/16 at 13:06; Stop 07/21/16 at 13:07; Status DC Lidocaine HCl (Xylocaine 2% Jelly) 1 applic ONCE ONCE TOPICAL Last administered on 07/21/16 15:13; Start 07/21/16 at 14:30; Stop 07/21/16 at 14:31 ; Status DC Lorazepam (Ativan Inj) 0.25 mg ONCE ONCE IV PUSH Last administered on 15:13; Start 07/21/16 at 15:15; Stop 07/21/16 at 15:16; Status DC Sodium Chloride (NS Flush) 2 ml UNSCH PRN IV FLUSH FLUSH AFTER USING IV ACCESS ; Start 07/21/16 at 15:15 Sodium Chloride (NS Flush) 2 ml BID IV FLUSH Last administered on 07/28/16 08: 57; Start 07/21/16 at 21:00 Ondansetron HCl (Zofran Inj) 4 mg Q6H PRN IVP NAUSEA OR VOMITING Last administered on 07/23/16 22:49; Start 07/21/16 at 15:15 Naloxone HCl (Narcan Inj) 0.4 mg UNSCH PRN IV SEE LABEL COMMENTS; Start at 15:15; Stop 07/23/16 at 12:30; Status DC Senna/Docusate Sodium (Holli-Colace) 1 tab BID PO ; Start 07/21/16 at 21:00; Status Hold Magnesium Hydroxide (Milk Of Magnesia Liq) 30 ml Q12H PRN PO MILD - MODERATE CONSTIPATION; Start 07/21/16 at 15:15; Status Hold Sennosides (Senokot) 17.2 mg Q12H PRN PO MODERATE - SEVERE CONSTIPATION; Start 07/21/16 at 15:15; Status Hold Bisacodyl (Dulcolax Supp) 10 mg DAILY PRN RECTAL SEVERE CONSITIPATION Last administered on 07/26/16 08:36; Start 07/21/16 at 15:15 Lactulose 30 ml 30 ml DAILY PRN PO SEVERE CONSITIPATION; Start 07/21/16 at 15: 15; Status Hold Dextrose/Sodium Chloride (D5W-1/2 NS 1000 ml Inj) 1,000 ml @ 100 mls/hr Q10H IV Last administered on 07/26/16 09:26; Start 07/21/16 at 15:15; Status Hold Budesonide/ Formoterol Fumarate (Symbicort 80-4.5 Mcg Inh) 1 puff Q12HR INH Last administered on 07/28/16 08:57; Start 07/21/16 at 21:00 Albuterol/ Ipratropium (Duoneb Neb) 1 ampule Q4HR NEB PRN NEB SOB/WHEEZING Last administered on 07/25/16 02:43; Start 07/21/16 at 17:30; Stop 07/27/16 at 09:12; Status DC Metoprolol Tartrate 12.5 mg 12.5 mg Q12HR PO ; Start 07/21/16 at 21:00; Stop at 11:01; Status DC Sodium Chloride (NS 250 ml Inj) 250 ml @ 250 mls/hr BOLUS ONCE IV Last administered on 07/21/16 18:30; Start 07/21/16 at 17:30; Stop 07/21/16 at 18:29 ; Status DC Miscellaneous (Pill Splitter) 1 ea UNSCH PRN OTHER SEE LABEL COMMENTS; Start at 17:30 Phenol (Chloraseptic [place]) 2 spray Q2H PRN OROPHARYNG sore throat; Start 07/21 at 22:00; Stop 07/25/16 at 11:31; Status DC Morphine Sulfate (Morphine Inj) 2 mg Q3H PRN IV PUSH PAIN Last administered on 07/24/16 03:22; Start 07/21/16 at 22:00; Stop 07/24/16 at 11:25; Status DC Diphenhydramine HCl (Benadryl Inj) 25 mg Q6H PRN IV PUSH itching/rash Last administered on 07/23/16 12:25; Start 07/21/16 at 22:00 Gentamicin Sulfate 240 mg 240 mg STK-MED ONCE .ROUTE ; Start 07/22/16 at 13:11; Stop 07/22/16 at 13:12; Status DC Ciprofloxacin/ Dextrose 200 ml @ As Directed STK-MED ONCE .ROUTE Last administered on 07/22/16 14:07; Start 07/22/16 at 13:31; Stop 07/22/16 at 13:32 ; Status DC Metronidazole (Flagyl 500 Mg Inj) 100 ml @ As Directed STK-MED ONCE IV Last administered on 07/22/16 14:08; Start 07/22/16 at 13:31; Stop 07/22/16 at 13:32 ; Status DC Famotidine (Pepcid Inj) 20 mg STK-MED ONCE .ROUTE ; Start 07/22/16 at 13:32; Stop 07/22/16 at 13:33; Status DC Midazolam HCl (Versed Inj) 2 mg STK-MED ONCE .ROUTE ; Start 07/22/16 at 13:33; Stop 07/22/16 at 13:34; Status DC Famotidine (Pepcid Inj) 20 mg STK-MED ONCE IV PUSH Last administered on 13:36; Start 07/22/16 at 13:36; Stop 07/22/16 at 14:00; Status DC Midazolam HCl (Versed Inj) 2 mg STK-MED ONCE IV PUSH Last administered on 13:36; Start 07/22/16 at 13:36; Stop 07/22/16 at 14:00; Status DC Sugammadex Sodium (Bridion Inj) 200 mg STK-MED ONCE IV PUSH ; Start 07/22/16 at 17:15; Stop 07/22/16 at 17:16; Status DC Pantoprazole Sodium (Protonix Inj) 40 mg Q24H IV PUSH Last administered on 07/27 17:04; Start 07/22/16 at 18:00 Neostigmine Methylsulfate (Prostigmin Inj) 10 mg STK-MED ONCE .ROUTE ; Start at 17:59; Stop 07/22/16 at 18:00; Status DC Glycopyrrolate (Robinul Inj) 0.2 mg STK-MED ONCE .ROUTE ; Start 07/22/16 at 17: 59; Stop 07/22/16 at 18:00; Status DC Morphine Sulfate (*morphine INJ PERIprocedure ONLY) 8 mg STK-MED ONCE .ROUTE Last administered on 07/22/16 18:10; Start 07/22/16 at 18:10; Stop 07/22/16 at 18:11; Status DC Miscellaneous Information ALL NURSING DEPARTME... UNSCH PRN .XX SEE LABEL COMMENTS; Start 07/22/16 at 18:05; Stop 07/23/16 at 18:04; Status DC Fentanyl Citrate (fentaNYL INJ) 250 mcg STK-MED ONCE .ROUTE ; Start 07/22/16 at 19:05; Stop 07/22/16 at 19:06; Status DC Morphine Sulfate (Morphine Inj) 4 mg ONCE ONCE IV PUSH Last administered on 22:31; Start 07/22/16 at 22:30; Stop 07/22/16 at 22:31; Status DC Morphine Sulfate 4 mg 4 mg ONCE ONCE IV PUSH Last administered on 07/23/16 04 :26; Start 07/23/16 at 04:00; Stop 07/23/16 at 04:09; Status DC Calcium Gluconate/ Sodium Chloride (Calcium Gluconate Inj/NS Inj) 110 ml @ 110 mls/hr ONCE ONCE IV Last administered on 07/23/16 11:11; Start 07/23/16 at 10 :00; Stop 07/23/16 at 10:59; Status DC Carvedilol (Coreg) 3.125 mg BID PO Last administered on 07/28/16 08:58; Start 07/23/16 at 21:00 Pravastatin Sodium (Pravachol) 10 mg DAILY PO Last administered on 07/28/16 08 :58; Start 07/24/16 at 11:00 Padimate O (Chapstick) 1 applic UNSCH PRN TOPICAL dry lips; Start 07/23/16 at 11:30 Naloxone HCl (Narcan Inj) 0.4 mg UNSCH PRN IV RESPIRATORY RATE LESS THAN 10; Start 07/23/16 at 12:15 Morphine Sulfate (Morphine 1 Mg/ ml GUIDE TOUR) 30 mg UNSCH IV Last administered on 14:40; Start 07/23/16 at 12:30; Stop 07/23/16 at 16:36; Status DC GUIDE TOUR Dosage Infused (Pha) 1 Q8HR .XX Last administered on 07/23/16 14:00; Start 07/23/16 at 14:00 Non-Formulary Medication INJECT 12.5MG IM ... Q6H PRN IM NAUSEA; Start at 23:30 Calcium Gluconate/ Sodium Chloride (Calcium Gluconate Inj/NS Inj) 110 ml @ 110 mls/hr ONCE ONCE IV Last administered on 07/24/16 10:13; Start 07/24/16 at 09 :00; Stop 07/24/16 at 09:59; Status DC Hydromorphone HCl 0.5 mg 0.5 mg Q4H PRN IV PUSH severe pain Last administered on 07/26/16 04:05; Start 07/24/16 at 12:00 Calcium Gluconate/ Sodium Chloride (Calcium Gluconate Inj/NS Inj) 110 ml @ 110 mls/hr ONCE ONCE IV Last administered on 07/25/16 11:41; Start 07/25/16 at 09 :00; Stop 07/25/16 at 09:59; Status DC Phenol (Chloraseptic [place]) 2 spray Q2H PRN OROPHARYNG sore throat Last administered on 07/25/16 18:52; Start 07/25/16 at 09:30 Bisacodyl (Dulcolax Supp) 10 mg ONCE ONCE RECTAL Last administered on 11:41; Start 07/25/16 at 12:00; Stop 07/25/16 at 12:01; Status DC Lorazepam (Ativan) 1 mg ONCE ONCE PO Last administered on 07/26/16 09:27; Start 07/26/16 at 09:00; Stop 07/26/16 at 09:01; Status DC Lorazepam (Ativan) 0.5 mg Q8H PRN PO anxiety; Start 07/26/16 at 08:45 Mirtazapine 15 mg 15 mg HS PO Last administered on 07/27/16 21:45; Start 07/26 at 21:00 Potassium Chloride (KCl 20 Meq Premix Inj) 100 ml @ 50 mls/hr Q2H IV Last administered on 07/26/16 14:00; Start 07/26/16 at 12:00; Stop 07/26/16 at 15:59 ; Status DC Calcium Carbonate (Tums Chew) 500 mg Q12HR CHEW Last administered on 07/28/16 08:57; Start 07/27/16 at 09:00 Albuterol/ Ipratropium (Duoneb Neb) 1 ampule Q4HR NEB NEB Last administered on 07/28/16 07:36; Start 07/27/16 at 09:15 Methylprednisolone Sodium Succinate (SoluMEDROL INJ) 40 mg Q6H IV PUSH Last administered on 07/28/16 09:02; Start 07/27/16 at 10:00 Furosemide 40 mg 40 mg ONCE ONCE IV PUSH Last administered on 07/27/16 17:04 ; Start 07/27/16 at 15:00; Stop 07/27/16 at 15:01; Status DC Potassium Chloride 100 ml @ 50 mls/hr Q2H IV Last administered on 07/27/16 17 :04; Start 07/27/16 at 15:00; Stop 07/27/16 at 18:59; Status DC Potassium Chloride (KCl 20 Meq Premix Inj) 100 ml @ 50 mls/hr ONCE ONCE IV Last administered on 07/27/16 21:55; Start 07/27/16 at 22:00; Stop 07/27/16 at 23:59; Status DC Potassium Bicarb/ Potassium Chloride (K-Lyte Cl Eff) 25 meq Q12HR PO Last administered on 07/28/16 08:57; Start 07/28/16 at 09:00 A/P Assessment and Plan Respiratory failure on 07/27/16 -BNP elevated and CXR negative. -most likely due to combination of volume overloaded and anxiety. -resolved with d/c of IVFs and lasix. -d/c solumedrol since no wheezing. -on duonebs. Small bowel obstruction -CT abdomen showed dilated small bowel loops, distended stomach. -Antiemetics as necessary -Status post exploratory laparotomy with lysis of adhesions on 07/22/[address] Galindo. -NG removed. -tolerating clears. SIRS criteria -Tachycardia could be secondary to beta joya withdrawal. -Improved with treatment. Hypokalemia -replenish as needed CHF -exacerbation on 07/27. -patient given once dose of lasix with resolution of symptoms. Hypertension -initially hypotension but that resolved with fluids and underlying treatment. -Continue home medication. COPD. -Duo nebs changed to scheduled. Continue Symbicort. Oxygen as necessary Incentive spirometry and Acapella. Anxiety -Patient is usually on mirtazapine which was not started. On Ativan when necessary. Prophylaxis. SCDs. Anticoagulation As per surgical service Discharge Planning patient clinically improving. Will wean off oxygen and advance diet per General Surgery. Anticipate discharge tomorrow. Génesis Montelongo MD Jul 28, 2016 09:47
[2016-07-28] MEDS ORDERED: POTASSIUM CHLORIDE 20 MEQ CONTROLLED RELEASE TAB PO ONE (12:45)
--- NOTE | 2016-07-28 13:21 | HHI.PR ---
Subjective Subjective Notes Up to BSC at bedside Tolerating clears Objective Vitals/I&O Vital Signs Date Time Temp Pulse Resp B/P Pulse Ox O2 Delivery O2 Flow Rate FiO2 07/28/16 12:00 96.9 90 20 142/63 92 07/28/16 08:50 Nasal Cannula 3.00 Labs Laboratory Tests Test 07/28/16 04:38 White Blood Count 5.9 Red Blood Count 3.45 Hemoglobin 10.2 Hematocrit 30.6 Mean Corpuscular Volume 88.6 Mean Corpuscular Hemoglobin 29.6 Mean Corpuscular Hemoglobin 33.4 Concent Red Cell Distribution Width 14.6 Platelet Count 232 Mean Platelet Volume 8.1 Sodium Level 141 Potassium Level 3.0 Chloride Level 96 Carbon Dioxide Level 41.3 Anion Gap 4 Blood Urea Nitrogen 4 Creatinine 0.36 Estimat Glomerular Filtration 175 Rate Random Glucose 132 Calcium Level 8.7 Radiology Last 48 hours Impressions Abdomen/Pelvis CT 07/21/16 1107 Signed Impressions: Service Date/Time: Thursday, July 21, 2016 12:54 - CONCLUSION: 1. Multiple fluid-filled dilated loops of jejunum suggesting distal jejunal or proximal ileal small bowel obstruction. Clinical correlation is recommended. 2. Degenerative changes and scoliosis of the lumbar spine. 3. Diffuse sclerosis involving the left symphysis pubis as well as the anterior portion of the left inferior pubic ramus. 4. Stable 2.1 cm right renal cyst. Maurisio Mcleod MD Chest X-Ray 07/21/16 0000 Signed Impressions: Service Date/Time: Thursday, July 21, 2016 12:18 - CONCLUSION: COPD. No evidence of acute cardiopulmonary process. Rosendo Marquez MD Cardiovascular: Regular Lungs: Clear Abdomen: Non-distended, Other (incision c/d/i---stapled ) Extremities: No edema Narrative Exam NGT removed A/P Assessment and Plan 75 year old female POD6 ex lap; SOFÍA; SBR with primary anastomosis -Advance to full liquids -Replace K -Pain control -OOB and mobilize -Updated at bedside Attending Note - Dr. Galindo Abdomen opener tender Wendy intact and dry The exam, history, and the medical decision-making described in the above note were completed with the assistance of the mid-level provider. I reviewed and agree with the findings presented. I attest that I had a [id number] encounter with the patient on the same day, and personally performed and documented my assessment and findings in the medical record. Evelyn Hill Jul 28, 2016 13:21 Carlos Galindo MD Jul 30, 2016 19:09
[2016-07-28] MEDS: PANTOPRAZOLE SODIUM 40 MG VIAL IV PUSH SCH (17:49)
[2016-07-28] MEDS: MIRTAZAPINE 15 MG TAB PO SCH (20:56)
[2016-07-28] MEDS: ONDANSETRON HCL 4 MG/2 ML VIAL IVP PRN (22:33)
[2016-07-29] VITALS (7 sets, daily range): BP systolic 108–120; BP diastolic 55–71; PULSE 77–88; RESP 20–24; TEMP 95.7–97.5; O2SAT 92–99
[2016-07-29] MEDS: HYDROmorphone HCL PF 1 MG/ML VIAL IV PUSH PRN (00:06)
[2016-07-29] MEDS: RESP: ALBUTEROL 2.5 MG/IPRATROPIUM 0.5 MG NEB (SCH) NEB ×6 (03:50→23:43)
[2016-07-29 05:44] LABS: BICARBONATE 39.3 MEQ/L (21.0-32.0); POTASSIUM 3.1 MEQ/L (3.5-5.1)
[2016-07-29] MEDS ORDERED: ACETAMINOPHEN/HYDROcodone 325 MG/7.5 MG TAB PO PRN (08:15)
[2016-07-29] MEDS: CARVEDILOL 3.125 MG TAB PO SCH ×2 (09:29→20:51)
[2016-07-29] MEDS: PRAVASTATIN SOD 10 MG TAB PO SCH (09:29)
[2016-07-29] MEDS: POTASSIUM CHLORIDE 25 MEQ EFFERVESCENT TAB PO SCH ×2 (09:29→20:52)
[2016-07-29] MEDS: CALCIUM CARBONATE 500 MG CHEWABLE TAB CHEW SCH ×2 (09:29→20:51)
[2016-07-29] MEDS: BUDESONIDE-FORMOTEROL 80/4.5 MCG INHALER INH SCH ×2 (09:30→20:53)
[2016-07-29] MEDS: SODIUM CHLORIDE 0.9% FLUSH 10 ML FLUSH IV FLUSH SCH ×2 (09:30→20:51)
[2016-07-29] MEDS ORDERED: POTASSIUM CHLORIDE 20 MEQ CONTROLLED RELEASE TAB PO ONE ×2 (10:00→16:00)
[2016-07-29] MEDS: POTASSIUM CHLOR 10 MEQ PREMIX 100 ML IV SCH ×3 (11:24→15:57)
--- NOTE | 2016-07-29 12:32 | HHI.PR ---
Subjective Subjective Notes Resting in bed Reports +BM Pain controlled Objective Vitals/I&O Vital Signs Date Time Temp Pulse Resp B/P Pulse Ox O2 Delivery O2 Flow Rate FiO2 07/29/16 08:39 99 Nasal Cannula 3.00 07/29/16 08:00 97.4 81 20 111/55 Labs Laboratory Tests Test 07/29/16 04:17 Sodium Level 142 Potassium Level 3.1 Chloride Level 96 Carbon Dioxide Level 39.3 Anion Gap 7 Blood Urea Nitrogen 10 Creatinine 0.57 Estimat Glomerular Filtration 103 Rate Random Glucose 93 Calcium Level 8.4 Magnesium Level 2.0 Radiology Last 48 hours Impressions Abdomen/Pelvis CT 07/21/16 1107 Signed Impressions: Service Date/Time: Thursday, July 21, 2016 12:54 - CONCLUSION: 1. Multiple fluid-filled dilated loops of jejunum suggesting distal jejunal or proximal ileal small bowel obstruction. Clinical correlation is recommended. 2. Degenerative changes and scoliosis of the lumbar spine. 3. Diffuse sclerosis involving the left symphysis pubis as well as the anterior portion of the left inferior pubic ramus. 4. Stable 2.1 cm right renal cyst. Maurisio Mcleod MD Chest X-Ray 07/21/16 0000 Signed Impressions: Service Date/Time: Thursday, July 21, 2016 12:18 - CONCLUSION: COPD. No evidence of acute cardiopulmonary process. Rosendo Marquez MD Cardiovascular: Regular Lungs: Clear Abdomen: Other (abdomen soft; midline incision with gregory ) Extremities: No edema Narrative Exam NGT removed A/P Assessment and Plan 75 year old female POD7 ex lap; SOFÍA; SBR with primary anastomosis -Advance to heart healthy diet -Replace K -Pain control -OOB and mobilize---PT/OT following -Patient may benefit from short stay at inpatient rehab Attending Note - Dr. Galindo Having cramping gas pains; sitting on bedside commode Wound clean and dry without erythema The exam, history, and the medical decision-making described in the above note were completed with the assistance of the mid-level provider. I reviewed and agree with the findings presented. I attest that I had a [id number] encounter with the patient on the same day, and personally performed and documented my assessment and findings in the medical record. Evelyn Hill Jul 29, 2016 12:32 Carlos Galindo MD Jul 30, 2016 19:10
--- NOTE | 2016-07-29 14:21 | HHI.PR ---
Subjective Remarks Patient seen this morning around 11 AM. Says she is feeling well. Still some stomach discomfort, but says this is improving.. Denies any chest pain or shortness of breath. Positive bowel movement. Objective Vital Signs Date Time Temp Pulse Resp B/P Pulse Ox O2 Delivery O2 Flow Rate FiO2 07/29/16 12:55 20 07/29/16 12:00 95.7 82 20 117/62 94 07/29/16 08:39 99 Nasal Cannula 3.00 07/29/16 08:00 97.4 81 20 111/55 99 07/29/16 00:00 97.5 86 24 120/58 92 07/28/16 20:00 96.9 88 22 142/65 94 07/28/16 20:00 Nasal Cannula 2.00 07/28/16 19:21 93 Nasal Cannula 3.00 07/28/16 16:04 Nasal Cannula 2.00 07/28/16 16:00 95.6 90 20 133/62 97 I/O 07/28/16 07/28/16 07/28/16 07/29/16 07/29/16 07/29/16 07:00 15:00 23:00 07:00 15:00 23:00 Intake Total 120 ml 660 ml 320 ml 240 ml Output Total 300 ml 275 ml 300 ml Balance -180 ml 385 ml 320 ml -60 ml Intake Oral 120 ml 660 ml 320 ml 240 ml IV Total 0 ml Output Urine Total 300 ml 275 ml 300 ml # Voids 2 1 2 1 # Bowel Movements 0 1 2 1 Result Diagram: 07/28/16 0438 07/29/16 0417 Objective Remarks GENERAL: Patient sitting up on commode. Appears comfortable. Alert and oriented 3. SKIN: Warm and dry. HEAD: Normocephalic. EYES: No scleral icterus. No injection or drainage. NECK: Supple, trachea midline. No JVD. CARDIOVASCULAR: Regular rate and rhythm without murmurs, gallops, or rubs. RESPIRATORY: Breath sounds equal bilaterally. No accessory muscle use. GASTROINTESTINAL: Abdomen soft, non-tender, nondistended. MUSCULOSKELETAL: No cyanosis, or edema. BACK: Nontender without obvious deformity. No CVA tenderness. A/P Assessment and Plan ===07/29/16 -Discussed with general surgery. Advancing diet. Tolerates today, possible discharge home tomorrow. Patient refuses SNF or rehabilitation. -Patient has 2 L of oxygen at home. Order home oxygen evaluation to assess ongoing needs. -Hypokalemia. Potassium 3.1. Replaced. Magnesium within normal limits. Follow. //Respiratory failure on 07/27/16 -BNP elevated and CXR negative. -most likely due to combination of volume overloaded and anxiety. -resolved with d/c of IVFs and lasix. -off solumedrol since no wheezing. -on duonebs. //Small bowel obstruction -CT abdomen showed dilated small bowel loops, distended stomach. -Antiemetics as necessary -Status post exploratory laparotomy with lysis of adhesions on 07/22/[address] Galindo. -NG removed. -Advancing diet as tolerated. Appreciate surgical assistance. //SIRS criteria. Resolved. -Tachycardia could be secondary to beta joya withdrawal. -Improved with treatment. //Hypokalemia -07/29 Potassium 3.1. Replaced. Magnesium within normal limits. Follow. //CHF -exacerbation on 07/27. Resolved. -patient given once dose of lasix with resolution of symptoms. //Hypertension -initially hypotension but that resolved with fluids and underlying treatment. -Blood pressure reviewed and acceptable. Continue home medication. //COPD. -Duo nebs changed to scheduled. Continue Symbicort. Oxygen as necessary Incentive spirometry and Acapella. //Anxiety -Patient is usually on mirtazapine which was not started. On Ativan when necessary. //Prophylaxis. SCDs. Anticoagulation As per surgical service Discharge Planning Discussed with surgery on 07/29. Continue to advance diet and monitor. Anticipate discharge tomorrow. Douglas Aleman MD Jul 29, 2016 14:21
[2016-07-29] MEDS: LORazepam 0.5 MG TAB PO PRN (14:39)
[2016-07-29] MEDS: ACETAMINOPHEN/HYDROcodone 325 MG/7.5 MG TAB PO PRN (15:56)
--- NOTE | 2016-07-29 16:41 | RADRPT ---
EXAM DATE/TIME: 07/29/2016 15:57 [facility] COMPARISON: CT ABDOMEN & PELVIS W CONTRAST, July 21, 2016, 12:54. ABDOMEN KUB ONLY, April 13, 2016, 4:37. INDICATIONS : Abdomen pain. MEDICAL HISTORY : Congestive heart failure. cervical ca, colon ca., bowel obstruction SURGICAL HISTORY : Hysterectomy. ENCOUNTER: Initial ACUITY: 2 days PAIN SCORE: Non-responsive. LOCATION: Bilateral abdomen FINDINGS: Recent CT examination and demonstrated fluid filled loops of dilated jejunum with probable distal jej unal/proximal ileal obstruction. Interval surgical changes with surgical staple line in the mid abdom en. Air and stool is seen in the colon extending to the rectum. No grossly abnormal dilated small bow el loops are noted. No gross pneumatosis or free air. Degenerative changes are noted in the lower lum bar spine. No abnormal calcifications. CONCLUSION: 1. Postsurgical features. 2. Nonobstructive bowel gas pattern. Vivek Hand MD on July 29, 2016 at 16:33 Board Certified Radiologist. This report was verified electronically.
[2016-07-29] MEDS: PANTOPRAZOLE SODIUM 40 MG VIAL IV PUSH SCH (17:17)
[2016-07-29] MEDS: MIRTAZAPINE 15 MG TAB PO SCH (20:51)
[2016-07-30] VITALS (8 sets, daily range): BP systolic 105–139; BP diastolic 56–84; PULSE 60–98; RESP 17–24; TEMP 96–96.7; O2SAT 93–98
[2016-07-30] MEDS: RESP: ALBUTEROL 2.5 MG/IPRATROPIUM 0.5 MG NEB (SCH) NEB ×5 (03:33→19:30)
[2016-07-30] MEDS: ACETAMINOPHEN/HYDROcodone 325 MG/7.5 MG TAB PO PRN (05:07)
[2016-07-30 05:24] LABS: AUTOMATED NEUTROPHIL # 6.2 TH/MM3 (1.8-7.7); BASOPHIL % 0.2 % (0.0-2.0); EOSINOPHIL # 0.2 TH/MM3 (0-0.4); EOSINOPHIL % 2.2 % (0.0-4.0); HEMATOCRIT 35.7 % (35.0-46.0); LYMPHOCYTE # 1.2 TH/MM3 (1.0-4.8); MEAN CELL VOLUME 91.6 FL (80.0-100.0); MEAN CORPUSCULAR HGB CONC 31.6 % (32.0-36.0); MONO % 14.3 % (0.0-8.0); NEUT % 70.3 % (16.0-70.0); PLATELET COUNT 243 TH/MM3 (150-450); RED BLOOD COUNT 3.89 MIL/MM3 (4.00-5.30); RED CELL DISTRIBUTION WIDTH 15.3 % (11.6-17.2); WHITE BLOOD COUNT 8.9 TH/MM3 (4.0-11.0)
[2016-07-30 05:34] LABS: HEMO FLAGS AUTO DIFF
[2016-07-30 06:00] LABS: BICARBONATE 37.7 MEQ/L (21.0-32.0); MAGNESIUM 1.8 MG/DL (1.5-2.5); POTASSIUM 4.5 MEQ/L (3.5-5.1)
[2016-07-30 07:34] LABS: SCAN/DIFF AUTO DIFF CONFIRMED
[2016-07-30] MEDS: CARVEDILOL 3.125 MG TAB PO SCH ×2 (08:27→21:05)
[2016-07-30] MEDS: PRAVASTATIN SOD 10 MG TAB PO SCH (08:27)
[2016-07-30] MEDS: POTASSIUM CHLORIDE 25 MEQ EFFERVESCENT TAB PO SCH ×2 (08:27→21:06)
[2016-07-30] MEDS: CALCIUM CARBONATE 500 MG CHEWABLE TAB CHEW SCH ×2 (08:27→21:06)
[2016-07-30] MEDS: SODIUM CHLORIDE 0.9% FLUSH 10 ML FLUSH IV FLUSH SCH ×2 (08:28→21:06)
[2016-07-30] MEDS: BUDESONIDE-FORMOTEROL 80/4.5 MCG INHALER INH SCH ×2 (08:28→21:07)
[2016-07-30] MEDS ORDERED: SENN8.6T15 PO (10:38)
[2016-07-30] MEDS ORDERED: MIRTA15 PO (10:38)
--- NOTE | 2016-07-30 10:40 | HHI.FF ---
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 My clinical findings support the need for the requested home health care services because: Deconditioned w/ increased weakness I certify that my clinical findings support that this patient is homebound because: Hx COPD- exertion dyspnea/weakness Unsafe to leave home unassisted Douglas Aleman MD Jul 30, 2016 10:40
--- NOTE | 2016-07-30 14:09 | HHI.PR ---
Subjective Subjective Notes Up to the side of bed eating breakfast Objective Vitals/I&O Vital Signs Date Time Temp Pulse Resp B/P Pulse Ox O2 Delivery O2 Flow Rate FiO2 07/30/16 12:00 96.4 80 24 105/58 93 07/30/16 07:47 Nasal Cannula 3.00 Labs Laboratory Tests Test 07/30/16 04:32 White Blood Count 8.9 Red Blood Count 3.89 Hemoglobin 11.3 Hematocrit 35.7 Mean Corpuscular Volume 91.6 Mean Corpuscular Hemoglobin 29.0 Mean Corpuscular Hemoglobin 31.6 Concent Red Cell Distribution Width 15.3 Platelet Count 243 Mean Platelet Volume 7.5 Neutrophils (%) (Auto) 70.3 Lymphocytes (%) (Auto) 13.0 Monocytes (%) (Auto) 14.3 Eosinophils (%) (Auto) 2.2 Basophils (%) (Auto) 0.2 Neutrophils # (Auto) 6.2 Lymphocytes # (Auto) 1.2 Monocytes # (Auto) 1.3 Eosinophils # (Auto) 0.2 Basophils # (Auto) 0.0 CBC Comment AUTO DIFF Differential Comment AUTO DIFF CONFIRMED Sodium Level 142 Potassium Level 4.5 Chloride Level 100 Carbon Dioxide Level 37.7 Anion Gap 4 Blood Urea Nitrogen 12 Creatinine 0.53 Estimat Glomerular Filtration 112 Rate Random Glucose 76 Calcium Level 8.2 Phosphorus Level 2.5 Magnesium Level 1.8 Albumin 2.2 Radiology Last 48 hours Impressions Abdomen/Pelvis CT 07/21/16 1107 Signed Impressions: Service Date/Time: Thursday, July 21, 2016 12:54 - CONCLUSION: 1. Multiple fluid-filled dilated loops of jejunum suggesting distal jejunal or proximal ileal small bowel obstruction. Clinical correlation is recommended. 2. Degenerative changes and scoliosis of the lumbar spine. 3. Diffuse sclerosis involving the left symphysis pubis as well as the anterior portion of the left inferior pubic ramus. 4. Stable 2.1 cm right renal cyst. Maurisio Mcleod MD Chest X-Ray 07/21/16 0000 Signed Impressions: Service Date/Time: Thursday, July 21, 2016 12:18 - CONCLUSION: COPD. No evidence of acute cardiopulmonary process. Rosendo Marquez MD Cardiovascular: Regular Lungs: Clear Abdomen: Other (incision c/d/i--stapled ) Extremities: No edema A/P Assessment and Plan 75 year old female POD8 ex lap; SOFÍA; SBR with primary anastomosis -Tolerating heart healthy diet -Labs reviewed -Pain control -OOB and mobilize---PT/OT following -Strongly suggest patient go to rehab -Plan to remove gregory tomorrow Attending Note - Dr. Galindo Wound clean and dry; gregory intact No cramps today Ambulating in room Need to do walk test prior to D/C to make sure patient does not need home O2 Will see in two weeks in office The exam, history, and the medical decision-making described in the above note were completed with the assistance of the mid-level provider. I reviewed and agree with the findings presented. I attest that I had a [id number] encounter with the patient on the same day, and personally performed and documented my assessment and findings in the medical record. Evelyn Hill Jul 30, 2016 14:09 Carlos Galindo MD Jul 30, 2016 19:08
[2016-07-30] MEDS: LORazepam 0.5 MG TAB PO PRN (16:51)
[2016-07-30] MEDS: PANTOPRAZOLE SODIUM 40 MG VIAL IV PUSH SCH (16:51)
[2016-07-30] MEDS: MIRTAZAPINE 15 MG TAB PO SCH (21:06)
--- NOTE | 2016-07-30 22:38 | HHI.PR ---
Subjective Remarks Patient seen this morning around 11 AM. Tolerating diet. Says she feels comfortable. Feels like going home. Discussed with general surgery. Would like to hold discharge one more day. Objective Vital Signs Date Time Temp Pulse Resp B/P Pulse Ox O2 Delivery O2 Flow Rate FiO2 07/30/16 20:27 96.4 98 17 122/71 97 07/30/16 20:00 Nasal Cannula 2.00 07/30/16 16:00 96.7 94 24 117/61 98 07/30/16 12:00 96.4 80 24 105/58 93 07/30/16 08:00 96.3 90 20 118/56 97 07/30/16 07:47 96 Nasal Cannula 3.00 07/30/16 04:38 96.5 80 17 139/84 96 07/30/16 00:10 96.0 74 20 125/60 93 I/O 07/29/16 07/29/16 07/29/16 07/30/16 07/30/16 07/30/16 06:59 14:59 22:59 06:59 14:59 22:59 Intake Total 240 ml 293 ml 280 ml 360 ml 60 ml Output Total 300 ml Balance -60 ml 293 ml 280 ml 360 ml 60 ml Intake Oral 240 ml 280 ml 360 ml 60 ml IV Total 0 ml 293 ml Output Urine Total 300 ml # Voids 1 7 5 4 # Bowel Movements 1 4 5 0 Result Diagram: 07/30/1643107/30/16431 Objective Remarks GENERAL: Patient sitting up in bed.Appears comfortable. Alert and oriented 3. SKIN: Warm and dry. HEAD: Normocephalic. EYES: No scleral icterus. No injection or drainage. NECK: Supple, trachea midline. No JVD. CARDIOVASCULAR: Regular rate and rhythm without murmurs, gallops, or rubs. RESPIRATORY: Breath sounds equal bilaterally. No accessory muscle use. GASTROINTESTINAL: Abdomen soft, non-tender, nondistended. MUSCULOSKELETAL: No cyanosis, or edema. BACK: Nontender without obvious deformity. No CVA tenderness. A/P Assessment and Plan ===07/30/16 -Discussed with general surgery again. Hold discharge until tomorrow Patient has walker at home. Patient refuses SNF or rehabilitation. -Patient has 2 L of oxygen at home. On 2 L here. -Hypokalemia. Potassium 4.5. Resolved. Discontinue potassium replacement //Respiratory failure on 07/27/16 -BNP elevated and CXR negative. -most likely due to combination of volume overloaded and anxiety. -resolved with d/c of IVFs and lasix. -off solumedrol since no wheezing. -on duonebs. //Small bowel obstruction -CT abdomen showed dilated small bowel loops, distended stomach. -Antiemetics as necessary -Status post exploratory laparotomy with lysis of adhesions on 07/22/[address] Galindo. -NG removed. -Advancing diet as tolerated. Appreciate surgical assistance. //SIRS criteria. Resolved. -Tachycardia could be secondary to beta joya withdrawal. -Improved with treatment. //Hypokalemia -07/29 Potassium 3.1. Replaced. Magnesium within normal limits. Follow. //CHF -exacerbation on 07/27. Resolved. -patient given once dose of lasix with resolution of symptoms. //Hypertension -initially hypotension but that resolved with fluids and underlying treatment. -Blood pressure reviewed and acceptable. Continue home medication. //COPD. -Duo nebs changed to scheduled. Continue Symbicort. Oxygen as necessary Incentive spirometry and Acapella. //Anxiety -Patient is usually on mirtazapine which was not started. On Ativan when necessary. //Prophylaxis. SCDs. Anticoagulation As per surgical service Discharge Planning Discussed with surgery on 07/30. Continue to monitor. -patient has walker at home. -patient has 2 L oxygen at home. -Refuses SNF. Physical therapy ongoing. Anticipate discharge tomorrow. Douglas Aleman MD Jul 30, 2016 22:38
[2016-07-31 00:08] VITALS: BP 108/57; PULSE 91; RESP 21; TEMP 97.6; O2SAT 96
[2016-07-31] MEDS: RESP: ALBUTEROL 2.5 MG/IPRATROPIUM 0.5 MG NEB (SCH) NEB ×4 (00:47→12:09)
[2016-07-31 07:53] VITALS: O2SAT 97
[2016-07-31 08:09] VITALS: BP 125/57; PULSE 78; RESP 22; TEMP 96.2; O2SAT 97
[2016-07-31] MEDS: PRAVASTATIN SOD 10 MG TAB PO SCH (08:34)
[2016-07-31] MEDS: CALCIUM CARBONATE 500 MG CHEWABLE TAB CHEW SCH (08:34)
[2016-07-31] MEDS: CARVEDILOL 3.125 MG TAB PO SCH (08:34)
[2016-07-31] MEDS: SODIUM CHLORIDE 0.9% FLUSH 10 ML FLUSH IV FLUSH SCH (08:35)
[2016-07-31] MEDS: BUDESONIDE-FORMOTEROL 80/4.5 MCG INHALER INH SCH (08:35)
[2016-07-31 12:00] VITALS: BP 132/62; PULSE 76; RESP 24; TEMP 97.1; O2SAT 96
--- NOTE | 2016-07-31 13:40 | HHI.PR ---
Subjective Subjective Notes Up to chair Eager to get home today Objective Vitals/I&O Vital Signs Date Time Temp Pulse Resp B/P Pulse Ox O2 Delivery O2 Flow Rate FiO2 07/31/16 12:00 97.1 76 24 132/62 96 07/31/16 10:54 2.00 07/31/16 08:40 Nasal Cannula Radiology Last 48 hours Impressions Abdomen/Pelvis CT 07/21/16 1107 Signed Impressions: Service Date/Time: Thursday, July 21, 2016 12:54 - CONCLUSION: 1. Multiple fluid-filled dilated loops of jejunum suggesting distal jejunal or proximal ileal small bowel obstruction. Clinical correlation is recommended. 2. Degenerative changes and scoliosis of the lumbar spine. 3. Diffuse sclerosis involving the left symphysis pubis as well as the anterior portion of the left inferior pubic ramus. 4. Stable 2.1 cm right renal cyst. Maurisio Mcleod MD Chest X-Ray 07/21/16 0000 Signed Impressions: Service Date/Time: Thursday, July 21, 2016 12:18 - CONCLUSION: COPD. No evidence of acute cardiopulmonary process. Rosendo Marquez MD Cardiovascular: Regular Lungs: Clear Abdomen: Other (midline incision c/d/i---gregory removed; Steri strips applied ) Extremities: No edema A/P Assessment and Plan 75 year old female POD9 ex lap; SOFÍA; SBR with primary anastomosis -Tolerating heart healthy diet -Pain control -OOB and mobilize---PT/OT following -Again strongly suggest patient go to rehab today -[place] removed -Follow up with Dr. Galindo in about 3 weeks Evelyn Hill Jul 31, 2016 13:40
--- NOTE | 2016-08-03 09:05 | HHI.DS ---
Discharge Summary Admission Date Jul 21, 2016 at 14:22 Discharge Date: Jul 31, 2016 Admitting Diagnosis small bowel obstruction Brief History - From Admission 75-year-old female with a history of colon cancer status post partial colectomy , colostomy with reversal, cervical cancer, CHF, history of small bowel obstruction, including an admission in April of this year for small bowel obstruction which resolved with NG tube. She presents with a 2 day history of nausea, nonbloody emesis, as well as generalized weakness. She went to [facility] on Wednesday, began to feel abdominal distention Wednesday night, which is accompanied by worsening colicky bilateral lower quadrant, nonradiating abdominal pain. Most recent bowel movement on Wednesday, none since. NG tube was placed in the ER, with improvement in nausea and abdominal distention. 800 mL out upon placement. CBC/BMP: 07/30/16 0432 07/30/16 0432 Imaging Last Impressions Abdomen X-Ray 07/29/16 1547 Signed Impressions: Service Date/Time: Friday, July 29, 2016 15:57 - CONCLUSION: 1. Postsurgical features. 2. Nonobstructive bowel gas pattern. Vivek Hand MD Chest X-Ray 07/27/16 0000 Signed Impressions: Service Date/Time: Wednesday, July 27, 2016 09:11 - CONCLUSION: 1. COPD changes. No acute abnormality identified. Matthew Tineo MD Abdomen/Pelvis CT 07/21/16 1107 Signed Impressions: Service Date/Time: Thursday, July 21, 2016 12:54 - CONCLUSION: 1. Multiple fluid-filled dilated loops of jejunum suggesting distal jejunal or proximal ileal small bowel obstruction. Clinical correlation is recommended. 2. Degenerative changes and scoliosis of the lumbar spine. 3. Diffuse sclerosis involving the left symphysis pubis as well as the anterior portion of the left inferior pubic ramus. 4. Stable 2.1 cm right renal cyst. Maurisio Mcleod MD PE at Discharge GENERAL: In NAD CARDIOVASCULAR: Regular rate and rhythm without murmurs, gallops, or rubs. RESPIRATORY: CTA B/L No accessory muscle use. GASTROINTESTINAL: Abdomen soft, mild tenderness palpation at the incision line, nondistended. Incision dry clean and intact. binder in place MUSCULOSKELETAL: No cyanosis, or edema. BACK: Nontender without obvious deformity. No CVA tenderness. Hospital Course ===07/30/16 -Discussed with general surgery again. Hold discharge until tomorrow Patient has walker at home. Patient refuses SNF or rehabilitation. -Patient has 2 L of oxygen at home. On 2 L here. -Hypokalemia. Potassium 4.5. Resolved. Discontinue potassium replacement //Respiratory failure on 07/27/16 -BNP elevated and CXR negative. -most likely due to combination of volume overloaded and anxiety. -resolved with d/c of IVFs and lasix. -off solumedrol since no wheezing. -on duonebs. //Small bowel obstruction -CT abdomen showed dilated small bowel loops, distended stomach. -Antiemetics as necessary -Status post exploratory laparotomy with lysis of adhesions on 07/22/[address] Galindo. -NG removed. -Advancing diet as tolerated. Appreciate surgical assistance. //SIRS criteria. Resolved. -Tachycardia could be secondary to beta joya withdrawal. -Improved with treatment. //Hypokalemia -07/29 Potassium 3.1. Replaced. Magnesium within normal limits. Follow. //CHF -exacerbation on 07/27. Resolved. -patient given once dose of lasix with resolution of symptoms. //Hypertension -initially hypotension but that resolved with fluids and underlying treatment. -Blood pressure reviewed and acceptable. Continue home medication. //COPD. -Duo nebs changed to scheduled. Continue Symbicort. Oxygen as necessary Incentive spirometry and Acapella. //Anxiety -Patient is usually on mirtazapine which was not started. On Ativan when necessary. //Prophylaxis. SCDs. Anticoagulation As per surgical service Discharge Planning Discussed with surgery on 07/30. Continue to monitor. -patient has walker at home. -patient has 2 L oxygen at home. -Refuses SNF. Physical therapy ongoing. Anticipate discharge tomorrow. Pt Condition on Discharge: Good Discharge Disposition: Disch w/ Home Health Serv Discharge Time: > 30 minutes Discharge Instructions DIET: Follow Instructions for: Heart Healthy Diet, High Fiber Diet Activities you can perform: Regular-No Restrictions Activities to Avoid: Lifting/Bending Other Activity Instructions: Continue home oxygen 2L continuous via nasal cannula Follow up Referrals: PCP Follow-up - 1 Week with [facility] - 2 Weeks with Carlos Galindo MD New Medications: Mirtazapine (Mirtazapine) 15 Mg Tab 15 MG PO HS sleep Days 30 TAB Sennosides (Senna Lax) 8.6 Mg Tab 17.2 MG PO Q12H PRN MODERATE - SEVERE CONSTIPATION Days 30 TAB Continued Medications: Alendronate (Alendronate) 70 Mg Tab 70 MG PO Q7D Osteporosis Treatment #4 Ref 0 TAB Budesonide-Formoterol Inh (Symbicort Inh) 80-4.5 Mcg/Act Aero 1 PUFF INH Q12HR Asthma Management #1 Ref 0 INHALER Carvedilol (Carvedilol) 3.125 Mg Tab 3.125 MG PO BID #60 Ref 0 TAB Furosemide (Furosemide) 20 Mg Tab 20 MG PO DAILY #30 Ref 0 TAB Hydrocodone-Acetaminophen ([place]) 7.5-325 mg Tab 1 TAB PO Q4H PRN PAIN #31 Ref 0 TAB Lovastatin (Lovastatin) 10 Mg Tab 10 MG PO DAILY Cholesterol Management #30 Ref 0 TAB Promethazine (Phenergan) 25 Mg Tab 25 MG PO Q6H PRN Nausea/Vomiting #15 Ref 0 TAB Douglas Aleman MD Aug 03, 2016 09:05
== END 2016-07-31 13:09 | disposition home health service (06) | DRG 329 ==
LOC: PHED 10:27 → PHEDA 14:22 → N03B 19:10 → N07B 07-23 15:00
PROVIDERS: ADMIT Internal Medicine; ATTEND Internal Medicine
PROC: 0DB80ZZ Excision of Small Intestine, Open Approach (ICD-10-PCS; principal; 2016-07-22 13:40)
PROC: 0DN80ZZ Release Small Intestine, Open Approach (ICD-10-PCS; 2016-07-22 13:40)
DX: K56.5 Intestinal adhesions [bands] with obstruction (postinfection) (principal); J96.90 Respiratory failure, unspecified, unspecified whether with hypoxia or hypercapnia; I95.9 Hypotension, unspecified; Z99.81 Dependence on supplemental oxygen; I11.0 Hypertensive heart disease with heart failure; I50.9 Heart failure, unspecified; E87.5 Hyperkalemia; E87.6 Hypokalemia; Z66 Do not resuscitate; M19.90 Unspecified osteoarthritis, unspecified site; K21.9 Gastro-esophageal reflux disease without esophagitis; R00.0 Tachycardia, unspecified; E78.5 Hyperlipidemia, unspecified; J44.9 Chronic obstructive pulmonary disease, unspecified; F41.9 Anxiety disorder, unspecified; Z92.21 Personal history of antineoplastic chemotherapy; Z85.038 Personal history of other malignant neoplasm of large intestine; Z85.41 Personal history of malignant neoplasm of cervix uteri; Z87.891 Personal history of nicotine dependence
CPT/HCPCS: 51702; 71010; 74000; 74177; 76937; 80048; 80053; 80069; 81001; 83605; 83690; 83735; 83880; 84155; 85025; 85027; 85610; 85730; 86850; 86900; 86901; 87641; 88305; 88307; 93005; 94150; 94620; 94640; 94664; 94667; 94668; 96361; 96374; C9113; J0610; J0744; J1170; J1200; J1580; J1940; J2060; J2250; J2270; J2370; J2405; J2710; J2920; J3010; J3480; J7040; J7050; J7120; Q9963; Q9967